=== PATIENT | male | born 1935 | race Caucasian/White ===

== ENCOUNTER 2017-05-03 21:24 | Inpatient (IN) | payer MEDICARE ==
[~2017-05-03] VITALS: Ht 180.3 cm; Wt 76.7 kg
[2017-05-03 21:45] VITALS: BP 100/62
--- NOTE | 2017-05-03 21:45 | NUR ---
GPS ADMISSION NOTE, RECEIVED PATIENT FROM [facility]. PATIENT ARRIVED ON THIS UNIT AT 2145 VIA STRETCHER WITH 2 EMT ESCORTS. PATIENT ADMITTED ON A 5150 HOLD FOR GD AND DTO. PER HOLD PATIENT PRESENTS WITH DEMENTIA WITH BEHAVIORAL DISTURBANCES. PATIENT HAS BEEN VERBALLY AND PHYSICALLY AGGRESSIVE AT ASSISTED LIVING FACILITY. PATIENT HAS BEEN COMBATIVE IN THE HOSPITAL REQUIRING IM PSYCHOTROPIC MEDICATIONS. FAMILY EXPRESSES SAFETY CONCERNS AND BELIEVE HE REQUIRES A PSYCHIATRIC ADMISSION. THE 5150 WAS REVIEWED AND THE DOCUMENTATION IN THE 5150 HOLD APPEARS TO REFLECT THE PRESENTATION OF THE PATIENT. UPON FACE TO FACE ASSESSMENT PATIENT IS CURRENTLY LYING IN BED AWAKE, HAS NO S/S OR COMPLAINTS OF PAIN. PATIENT IS DISPLAYING NO S/S OF APPARENT DISTRESS. PATIENT BREATHING IS UNLABORED WITH EQUAL RISE AND FALL OF THE CHEST. PATIENT IS ALERT AND ORIENTATED X 1 ON ROOM AIR. PATIENT ASSISTED WITH TURING AND REPOSITIONING Q2HR AND PRN FOR COMFORT AND CIRCULATION. PATIENT HAS NO NEEDS AT THIS TIME. PATIENT IS NOTED TO BEING WITHDRAWN, DEPRESSED, DISHEVELED, DISORGANIZED, CONFUSED, COOPERATIVE, AND NEEDS REDIRECTION. PATIENT DENIES SUICIDE IDEATIONS AND HOMICIDAL IDEATIONS AT THIS TIME BUT IS CONFUSED. PATIENT IS UNDER THE PSYCHIATRIC CARE OF DR. PEARL AND THE MEDICAL CARE OF DR ARAUJO. PATIENT BELONGINGS WERE INVENTORIED AND CHECKED FOR CONTRABAND. ALL CONTRABAND REMOVED AND STORED IN PATIENT HALLWAY LOCKER. PATIENT ADVANCED DIRECTIVES PREFERENCE, IMMUNIZATIONS QUESTIONER, NECESSARY PAPERWORK, AND SKIN ASSESSMENT COMPLETED. PATIENT ORIENTATED TO ROOM, FLOOR, AND STAFF WITH ALL QUESTIONS ANSWERED. PATIENT EDUCATED ON THE USE OF THE CALL PICKENS. PATIENT BED SIDE RAILS ARE UP X 2 FOR SAFETY. PATIENT BED IS LOCKED, LOW AND I WILL CONTINUE TO MONITOR THIS PATIENT Q 15 MIN WITH THE HELP OF STAFF TO MAINTAIN SAFETY.
[2017-05-03] MEDS ORDERED: MAGNESIUM HYDROXIDE 30 ML UDC PO PRN (22:00)
[2017-05-03] MEDS ORDERED: ACETAMINOPHEN 325 MG TABLET PO PRN (22:00)
[2017-05-03] MEDS ORDERED: MAG HYDROX/AL HYDROX/SIMETH 30 ML UDC PO PRN (22:00)
--- NOTE | 2017-05-03 22:00 | NUR ---
GPS RN NOTE, PATIENT IS VERY UNSTEADY ON HIS FEET CONSTANTLY TRYING TO CLIMB OUT BED WHILE SO CONFUSED IT IS HARD REORIENT THIS PATIENT. PATIENT ASSISTED TO GERIATRIC CHAIR FOR SAFETY. WILL ENDORSE TO AM SHIFT TO INFORM DR CASTANON TO HAVE 1 TO 1 SITTER FOR THIS PATIENT. WILL CONTINUE TO MONITOR THIS PATIENT.
[2017-05-03] MEDS ORDERED: BISA-79 PO (22:35)
[2017-05-03] MEDS ORDERED: SENN8.6T6 PO (22:35)
[2017-05-03] MEDS ORDERED: OLAN2.5T3 PO (22:35)
[2017-05-03] MEDS ORDERED: ASPI81TA2 PO (22:36)
[2017-05-03] MEDS ORDERED: CETI-102 PO (22:37)
[2017-05-03] MEDS ORDERED: DIVA125C5 PO (22:41)
[2017-05-03] MEDS ORDERED: DOCU-170 PO (22:41)
[2017-05-03] MEDS ORDERED: ESCI10TA PO (22:42)
[2017-05-03] MEDS ORDERED: FLUT16SP BNOSTRILS (22:43)
[2017-05-03] MEDS ORDERED: LATA2.5D7 EACHEYE (22:44)
[2017-05-03] MEDS ORDERED: LOPE2CAP PO (22:46)
[2017-05-03] MEDS ORDERED: MEMA10TA PO (22:47)
[2017-05-03] MEDS ORDERED: MULT-1119 PO (22:48)
[2017-05-03] MEDS ORDERED: NYST60PO TP (22:49)
[2017-05-03] MEDS ORDERED: OMEP20CA10 PO (22:50)
[2017-05-03] MEDS ORDERED: SIMV10TA6 PO (22:52)
[2017-05-03] MEDS ORDERED: TAMS0.4C34 PO (22:53)
[2017-05-03] MEDS ORDERED: TEMAZEPAM 7.5 MG CAPSULE ONE (23:03)
[2017-05-03] MEDS: TEMAZEPAM 7.5 MG CAPSULE PO PRN (23:08)
--- NOTE | 2017-05-03 23:08 | NUR ---
GPS RN NOTE, PATIENT HAS A COMPLAINT OF NOT BEING ABLE TO SLEEP AND WOULD LIKE A SLEEPING AID AT THIS TIME. PATIENT VITAL SIGNS ARE STABLE. GAVE RESTORIL 7.5MG PO HS ORDERED. WILL REASSESS FOR INSOMNIA AND I WILL CONTINUE TO MONITOR THIS PATIENT.
[2017-05-03] MEDS ORDERED: NYSTATIN TOP POWDER 15 GM BOTTLE TP PRN (23:30)
[2017-05-04] MEDS ORDERED: Z GUARD REMEDY 4 OZ OINT TP PRN (00:30)
[2017-05-04] MEDS ORDERED: LORAZEPAM 0.5 MG TABLET ONE (02:40)
[2017-05-04] MEDS: LORAZEPAM 0.5 MG TABLET PO PRN (02:44)
--- NOTE | 2017-05-04 02:44 | NUR ---
GPS RN NOTE, PATIENT HAS A COMPLAINT OF FEELING ANXIOUS AND WOULD LIKE MEDICATION TO HELP CALM HIM DOWN. PATIENT VITAL SIGNS ARE STABLE. GAVE ATIVAN 0.5MG PO Q6HR PRN ORDERED. WILL REASSESS FOR ANXIETY AND I WILL CONTINUE TO MONITOR THIS PATIENT.
[2017-05-04 07:12] LABS: BASOPHILS % (AUTO) 0.4 % (0.0-2.0); EOSINOPHILS # (AUTO) 0.2 /CMM (0.0-0.7); HEMATOCRIT 41 % (39-51); HEMOGLOBIN 14.1 g/dL (13.5-17.5); LYMPHOCYTES # (AUTO) 1.9 /CMM (0.8-4.8); LYMPHOCYTES % (AUTO) 21.6 % (20.0-44.0); MEAN CORPUSCULAR HEMOGLOBIN 33 PG (26.0-33.0); MEAN CORPUSCULAR HGB CONC 34 g/dl (31.0-36.0); MEAN CORPUSCULAR VOLUME 95 fL (80-96); MONOCYTES # (AUTO) 0.5 /CMM (0.1-1.30); MONOCYTES % (AUTO) 5.5 % (2.0-12.0); NEUTROPHILS # (AUTO) 6.3 /CMM (1.8-8.9); NEUTROPHILS % (AUTO) 70.5 % (43.0-81.0); PLATELET COUNT (AUTO) 164 /CMM (150-450); RDW COEFFICIENT OF VARIATION 13.4 (11.5-15.0); RED BLOOD CELL COUNT(AUTO) 4.32 MIL/uL (4.5-6.0); WHITE BLOOD COUNT (AUTO) 8.9 K/uL (4.3-11.0)
[2017-05-04 07:28] LABS: ALANINE AMINOTRANSFERASE 35 U/L (12-78); ALBUMIN 3.6 g/dL (3.4-5.0); ALKALINE PHOSPHATASE 131 U/L (46-116); ASPARTATE AMINOTRANSFERASE 23 U/L (15-37); BILIRUBIN,TOTAL 0.5 mg/dL (0.2-1.0); CALCIUM, SERUM 8.9 mg/dL (8.5-10.1); CARBON DIOXIDE 33 mmol/L (21-32); CHLORIDE 103 mmol/L (98-107); CREATININE 0.9 mg/dL (0.6-1.3); GLUCOSE 92 mg/dL (74-106); POTASSIUM 3.5 mmol/L (3.5-5.1); SODIUM SERUM 141 mmol/L (136-145); TOTAL PROTEIN, SERUM 7.2 g/dL (6.4-8.2); UREA NITROGEN, BLOOD 17 mg/dL (7-18)
[2017-05-04 07:34] LABS: CHOLESTEROL 154 mg/dL (<200); HDL CHOLESTEROL 55 mg/dL (40-60); LDL 73 mg/dL (0-99); TRIGLYCERIDES 80 mg/dL (30-150)
[2017-05-04 08:00] VITALS: BP 110/63
[2017-05-04] MEDS: ASPIRIN 81 MG TAB.CHEW PO SCH (08:36)
[2017-05-04] MEDS: DOCUSATE SODIUM 100 MG CAPSULE PO SCH ×2 (08:36→16:05)
[2017-05-04] MEDS: cetrizine 10 MG TABLET PO SCH (08:37)
[2017-05-04] MEDS: FLUTICASONE PROPIONATE 16 GM BOTTLE NS SCH (09:46)
[2017-05-04] MEDS ORDERED: OLANZAPINE 2.5 MG TABLET PO SCH (15:30)
--- NOTE | 2017-05-04 15:32 | NUR ---
Initial Discharge Plan: Patient resides at [facility] [address] [place] [address] ([phone]). company laundry worker spoke to patient's daughter Vilma Mak ([phone]) who stated that patient was in the memory care unit at [facility] and feels that he might need a shelter facility instead. company laundry worker spoke to Tito from the facility to confirm if patient can return upon discharge. However, Tito stated that Darlene the global compensation director who is in charge of making that decision was not available at the moment. company laundry worker left her contact information with Tito who stated that Siobhan would follow-up with older adult social work specialist. company laundry worker will help form a safe and proper discharge.
[2017-05-04] MEDS: ESCITALOPRAM OXALATE (10 MG) 10 MG TABLET PO SCH (15:38)
[2017-05-04] MEDS: MEMANTINE HCL 5 MG TABLET PO SCH (15:38)
[2017-05-04 16:03] VITALS: BP 118/72
[2017-05-04] MEDS: OLANZAPINE 2.5 MG TABLET PO SCH ×2 (16:08→21:19)
--- NOTE | 2017-05-04 16:37 | NUR ---
GPS RN: DNR/DNI STATUS CONFIRMED BY THIS WEB SEARCH EVALUATOR WITH PATIENT'S DAUGHTER, HEMAL CARTER AND WITNESSED BY THE CHARGE NURSE JAYSHREE, RELAYED TO WILTON ABDI NP, OK TO ORDER DNR/DNI CODE STATUS.
--- NOTE | 2017-05-04 17:15 | NUR ---
GPS RN: PATIENT IS RESTLESS AND COMBATIVE. UNABLE TO OBTAIN URINE AT THIS TIME, WILL ENDORSE TO THE UPCOMING SHIFT.
[2017-05-04] MEDS: LATANOPROST EYE DROP 0.005% 2.5 ML BOTTLE EACHEYE SCH (17:30)
[2017-05-04] MEDS: SIMVASTATIN 10 MG TABLET PO SCH (17:30)
[2017-05-04 19:56] VITALS: BP 129/106
[2017-05-04 20:00] VITALS: BP 129/106
[2017-05-04 20:05] VITALS: BP 119/87
[2017-05-04] MEDS: TAMSULOSIN 0.4 MG CAP.SR.24H PO SCH (21:18)
[2017-05-04] MEDS: TEMAZEPAM 7.5 MG CAPSULE PO PRN (21:18)
[2017-05-04] MEDS: SENNOSIDES 8.6 MG TABLET PO SCH (21:19)
[2017-05-05 08:00] VITALS: BP 111/67
[2017-05-05] MEDS: ESCITALOPRAM OXALATE (10 MG) 10 MG TABLET PO SCH (08:43)
[2017-05-05] MEDS: ASPIRIN 81 MG TAB.CHEW PO SCH (08:43)
[2017-05-05] MEDS: MEMANTINE HCL 5 MG TABLET PO SCH (08:43)
[2017-05-05] MEDS: DOCUSATE SODIUM 100 MG CAPSULE PO SCH ×2 (08:43→17:47)
[2017-05-05] MEDS: OLANZAPINE 2.5 MG TABLET PO SCH ×3 (08:43→17:48)
[2017-05-05] MEDS: cetrizine 10 MG TABLET PO SCH (08:43)
[2017-05-05] MEDS: FLUTICASONE PROPIONATE 16 GM BOTTLE NS SCH (08:47)
--- NOTE | 2017-05-05 15:21 | NUR ---
GPS RN: PATIENT IS EASILY AGITATED, VERBALLY ABUSIVE, COMBATIVE AND AGGRESSIVE, FLAILING ARMS. APPROACHED CALMLY AND ENCOURAGED TO VERBALIZE FEELINGS, PROVIDED WITH SAFE AND CALM ENVIRONMENT. ALL NEEDS ATTENDED, CONTINUE TO MONITOR WITH 1:1 SITTER FOR SAFETY.
[2017-05-05] MEDS: SIMVASTATIN 10 MG TABLET PO SCH (17:47)
[2017-05-05] MEDS: LATANOPROST EYE DROP 0.005% 2.5 ML BOTTLE EACHEYE SCH (17:55)
--- NOTE | 2017-05-05 19:00 | NUR ---
GPS RN: PATIENT IS IN BED, NOT IN DISTRESS, RESTING QUIETLY, 1:1 SITTER AT BEDSIDE. UNABLE TO OBTAIN URINE SAMPLE DUE TO AGITATION DURING AM SHIFT. URINE COLLECTION ENDORSED TO THE INTEGRITY ASSESSOR NURSE.
[2017-05-05 20:21] VITALS: BP 111/69
[2017-05-05] MEDS: TAMSULOSIN 0.4 MG CAP.SR.24H PO SCH (21:29)
[2017-05-05] MEDS: TEMAZEPAM 7.5 MG CAPSULE PO PRN (21:30)
[2017-05-05] MEDS: SENNOSIDES 8.6 MG TABLET PO SCH (21:30)
[2017-05-06 08:16] VITALS: BP 131/73
[2017-05-06] MEDS: MEMANTINE HCL 5 MG TABLET PO SCH (08:44)
[2017-05-06] MEDS: DOCUSATE SODIUM 100 MG CAPSULE PO SCH ×2 (08:44→16:22)
[2017-05-06] MEDS: ESCITALOPRAM OXALATE (10 MG) 10 MG TABLET PO SCH (08:44)
[2017-05-06] MEDS: ASPIRIN 81 MG TAB.CHEW PO SCH (08:44)
[2017-05-06] MEDS: OLANZAPINE 2.5 MG TABLET PO SCH ×3 (08:45→16:22)
[2017-05-06] MEDS: cetrizine 10 MG TABLET PO SCH (08:45)
[2017-05-06] MEDS: FLUTICASONE PROPIONATE 16 GM BOTTLE NS SCH (08:47)
--- NOTE | 2017-05-06 10:00 | NUR ---
[id number]: PT IS IRRITABLE, UNPREDICTABLE, ANXIOUS, RESTLESS, UNCOOPERATIVE, YELLING, SAYING PROFANITIES. ESCORTED PT BACK TO ROOM, DECREASE STIMULI, PROVIDED A QUIET AND CALM ENVIRONMENT. OFFERED PT TO TAKE A ATIVAN AND PT REFUSED. WILL CONTINUE TO MONITOR FOR SAFETY AND BEHAVIOR EVERY 15 MINUTES.
[2017-05-06 13:16] LABS: APPEARANCE,URINE SL CLOUDY (CLEAR); BILIRUBIN,URINE NEGATIVE (NEGATIVE); BLOOD, URINE 3+ Ery/uL (NEGATIVE); COLOR,URINE YELLOW (YELLOW); KETONES,URINE NEGATIVE (NEGATIVE); LEUKOCYTE ESTERASE ,URINE NEGATIVE (NEGATIVE); NITRITE, URINE NEGATIVE (NEGATIVE); PH,URINE 6.5 (5.0-8.0); PROTEIN,URINE NEGATIVE (NEGATIVE); UGLUCOSE NEGATIVE (NEGATIVE); UROBILINOGEN,URINE 0.2 EU/dL (0.2)
[2017-05-06 14:21] LABS: BACTERIA,URINE Rare /HPF (None Seen); RBC,URINE 51-80 /HPF (0-2); SQUAMOUS EPITHELIAL CELL,UR Few /HPF (None Seen)
--- NOTE | 2017-05-06 14:34 | NUR ---
[id number]: NOTIFIED EXTERNAL AUDITOR СЕРГЕЙ CUELLAR ABOUT URINALYSIS RESULTS ON 05/06/17: URINE RBC= 51-80, AND URINE WBC=3-5. NO NEW ORDERS GIVEN AT THIS TIME
[2017-05-06 16:00] VITALS: BP 110/58
[2017-05-06] MEDS: SIMVASTATIN 10 MG TABLET PO SCH (17:41)
[2017-05-06] MEDS: LATANOPROST EYE DROP 0.005% 2.5 ML BOTTLE EACHEYE SCH (17:42)
[2017-05-06 19:47] VITALS: BP 130/69
[2017-05-06] MEDS: TEMAZEPAM 7.5 MG CAPSULE PO PRN (21:35)
[2017-05-06] MEDS: SENNOSIDES 8.6 MG TABLET PO SCH (21:35)
[2017-05-06] MEDS: TAMSULOSIN 0.4 MG CAP.SR.24H PO SCH (21:35)
[2017-05-07 08:00] VITALS: BP 110/69
[2017-05-07] MEDS: cetrizine 10 MG TABLET PO SCH (08:12)
[2017-05-07] MEDS: ASPIRIN 81 MG TAB.CHEW PO SCH (08:12)
[2017-05-07] MEDS: DOCUSATE SODIUM 100 MG CAPSULE PO SCH ×2 (08:12→16:08)
[2017-05-07] MEDS: MEMANTINE HCL 5 MG TABLET PO SCH (08:12)
[2017-05-07] MEDS: ESCITALOPRAM OXALATE (10 MG) 10 MG TABLET PO SCH (08:12)
[2017-05-07] MEDS: OLANZAPINE 2.5 MG TABLET PO SCH ×2 (08:14→12:21)
[2017-05-07] MEDS: FLUTICASONE PROPIONATE 16 GM BOTTLE NS SCH (08:15)
--- NOTE | 2017-05-07 10:00 | NUR ---
[id number]: PT IS OBSERVED TO BE IRRITABLE, ANXIOUS, RESTLESS, UNCOOPERATIVE WITH CARE. DISCUSS WITH PT THAT PT IS GOING TO BE CHANGED AND THE IMPORTANCE OF PERSONAL HYGIENE. PT YET IS IRRITABLE, RESISTANT TO CARE, USING PROFANITIES WHEN TALKING TO STAFF. WILL CONTINUE TO MONITOR FOR SAFETY AND BEHAVIOR EVERY 15 MINUTES.
[2017-05-07 16:00] VITALS: BP 128/66
[2017-05-07] MEDS: OLANZAPINE 5 MG TABLET PO SCH (16:08)
[2017-05-07] MEDS: LATANOPROST EYE DROP 0.005% 2.5 ML BOTTLE EACHEYE SCH (17:23)
[2017-05-07] MEDS: SIMVASTATIN 10 MG TABLET PO SCH (17:23)
[2017-05-07 19:38] VITALS: BP 94/57
[2017-05-07] MEDS: TAMSULOSIN 0.4 MG CAP.SR.24H PO SCH (21:23)
[2017-05-07] MEDS: SENNOSIDES 8.6 MG TABLET PO SCH (21:23)
[2017-05-07] MEDS: TEMAZEPAM 7.5 MG CAPSULE PO PRN (21:24)
[2017-05-08 08:00] VITALS: BP 117/77
[2017-05-08] MEDS: ESCITALOPRAM OXALATE (10 MG) 10 MG TABLET PO SCH (08:21)
[2017-05-08] MEDS: MEMANTINE HCL 5 MG TABLET PO SCH (08:21)
[2017-05-08] MEDS: OLANZAPINE 5 MG TABLET PO SCH ×3 (08:21→17:00)
[2017-05-08] MEDS: ASPIRIN 81 MG TAB.CHEW PO SCH (08:21)
[2017-05-08] MEDS: cetrizine 10 MG TABLET PO SCH (08:22)
[2017-05-08] MEDS: FLUTICASONE PROPIONATE 16 GM BOTTLE NS SCH (08:26)
[2017-05-08] MEDS: DOCUSATE SODIUM 100 MG CAPSULE PO SCH ×2 (08:28→16:25)
[2017-05-08] MEDS: BENZTROPINE MESYLATE (1 MG) 1 MG TABLET PO SCH ×2 (10:08→16:25)
--- NOTE | 2017-05-08 10:08 | NUR ---
[id number]: NOTIFIED DR. QUIROGA ABOUT PT HAVING STIFF NECK, UNABLE TO MOVE THE NECK. DR. CLAY ORDERED COGENTIN 1 MG PO BID AND FIRST ORDER TO BE GIVEN NOW. WILL CONTINUE TO MONITOR PT. FOR SIGNS AND SYMPTOMS OF EPS.
--- NOTE | 2017-05-08 11:56 | NUR ---
propeller layout worker faxed initial review packet to [facility] (phone: [phone]/ ) [address] [facility] [address]. Per Keyon, from the facility patient has been accepted. propeller layout worker will follow-up.
--- NOTE | 2017-05-08 12:00 | NUR ---
[id number]: FOUND 3 SKIN TEARS ON LOWER LEFT LEG WITH MEASUREMENTS OF 1.5CM X 1CM, 1.7CM X 0.6CM, 0.5CM X 1.5CM. PT HAD BEEN ADMITTED WITH DRY SCALY, OLD BRUISES ON LOWER LEG. PICTURES TAKEN. CLEANSED WITH NORMAL SALINE, PAT DRY AND COVERED WITH DRY DRESSING. WOUND CONSULT ORDERED. NOTIFIED DAUGHTER HEMAL BECKWITH. NO SIGNS OR SYMPTOMS OF INFECTION NOTED. NO PRESENT OF FOUL ODOR NOTED. PT STATED, "I DON'T KNOW HOW I GOT IT." WILL CONTINUE TO MONITOR FOR SAFETY AND BEHAVIOR.
[2017-05-08] MEDS ORDERED: BENZTROPINE MESYLATE (2MG/2ML) 2 MG/2 ML AMPUL IM ONE (13:46)
[2017-05-08] MEDS ORDERED: BENZTROPINE MESYLATE (2MG/2ML) 2 MG/2 ML AMPUL IM SCH (14:00)
--- NOTE | 2017-05-08 15:46 | NUR ---
[id number]: NOTIFIED DR. 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
[2017-05-08 16:00] VITALS: BP 126/85
[2017-05-08] MEDS: SIMVASTATIN 10 MG TABLET PO SCH (17:00)
[2017-05-08] MEDS: LATANOPROST EYE DROP 0.005% 2.5 ML BOTTLE EACHEYE SCH (17:00)
--- NOTE | 2017-05-08 17:35 | NUR ---
[id number]: HOLD ZYPREXA 5 MG DUE TO POSSIBLE TARDIVE DYSKINESIA. WILL CONTINUE TO MONITOR FOR SIGNS AND SYMPTOMS OF TARDIVE DYSKINESIA. DR. CLAY WANTS FOR THE MORNING NURSE TO HOLD MORNING ZYPREXA 5 MG FOR TOMORROW ON 05/09/17 AND TO MONITOR FOR SIGNS AND SYMPTOMS OF TARDIVE DYSKINESIA.
[2017-05-08 21:09] VITALS: BP 133/71
[2017-05-08] MEDS: SENNOSIDES 8.6 MG TABLET PO SCH (22:00)
[2017-05-08] MEDS: TAMSULOSIN 0.4 MG CAP.SR.24H PO SCH (22:00)
--- NOTE | 2017-05-09 07:30 | NUR ---
EXAMINER RATING CLERK-NOTES RECEIVED PATIENT IN THE DAY ROOM UP IN THE GERICHAIR WITH THE TABLE AWAKE,ALERT ORIENTED X1. NO ACUTE DISTRESS NOTED. PATIENT ABLE TO MOVE ALL EXTREMITIES WITH NO DISCOMFORT.NOTED SKIN TEAR ON HIS LEFT HAND,CLEANSE WITH NS PAT DRY AND COVERED WITH TRANSPARENT DRESSING. NOTED WITH EPISODE OF PUSHING HIS TABLE CHAIR AND GETTING OUT THE CHAIR UNASSISTED.REDIRECTED PATIENT. ALL NEEDS ATTENDED AND ANTICIPATED.WILL CONT. MONITORING FOR SAFETY AND BEHAVIOR.
[2017-05-09 08:03] VITALS: BP 122/68
[2017-05-09] MEDS: OLANZAPINE 5 MG TABLET PO SCH ×2 (08:21→16:21)
[2017-05-09] MEDS: DOCUSATE SODIUM 100 MG CAPSULE PO SCH ×2 (08:21→16:21)
[2017-05-09] MEDS: BENZTROPINE MESYLATE (1 MG) 1 MG TABLET PO SCH ×2 (08:21→16:21)
[2017-05-09] MEDS: ESCITALOPRAM OXALATE (10 MG) 10 MG TABLET PO SCH (08:21)
[2017-05-09] MEDS: cetrizine 10 MG TABLET PO SCH (08:21)
[2017-05-09] MEDS: ASPIRIN 81 MG TAB.CHEW PO SCH (08:21)
[2017-05-09] MEDS: MEMANTINE HCL 5 MG TABLET PO SCH (08:21)
--- NOTE | 2017-05-09 09:36 | NUR ---
WOUND CARE CONSULT: PT PRESENTS WITH LEFT HAND SKIN TEAR AND LEFT LOWER LEG SKIN TEARS. PT ALSO NOTED TO HAVE SCARRING TO SACRAL AREA WITH THICKENED SKIN. PT IS INCONTINENT. RECOMMENDATIONS MADE FOR SKIN PROTECTION AND WOUND CARE. DISCUSSED WITH NURSING STAFF. WILL SEE PRN. ROSA IN AGREEMENT WITH PLAN OF CARE. Addendum: 05/09/17 at 4073 by TONY MCNALLY WNDNU Amended: Links added.
[2017-05-09] MEDS: BACITRACIN/POLYMYXIN B 15 GM TUBE TP SCH ×2 (11:14→16:55)
[2017-05-09] MEDS: FLUTICASONE PROPIONATE 16 GM BOTTLE NS SCH (11:15)
--- NOTE | 2017-05-09 15:09 | NUR ---
supervisor shed workers spoke to patient's daughter Vilma Mak ([phone]) and notified her that patient has been accepted to [facility] (phone: [phone]/ ) [address] [facility] [address]. Per Hilda Mak, she was going to try and visit the facility today. supervisor shed workers informed Hilda Mak that if there is other facilities she had in mind to please inform clinical social work aide as soon as possible so that the clinical social work aide can follow-up.
[2017-05-09 16:00] VITALS: BP 125/77
[2017-05-09] MEDS: LORAZEPAM 0.5 MG TABLET PO PRN (16:54)
--- NOTE | 2017-05-09 16:56 | NUR ---
REBEAMER-NOTES NOTED PATIENT WITH AGGRESSIVE BEHAVIOR,HITTING AND KICKING STAFF DURING DIAPER CHANGE. REFUSING TO WEAR GOWN.SCREAMING AND YELLING USING FOUL LANGUAGES. REDIRECTED PATIENT. ATIVAN 0.5MG P.O GIVEN PRN ORDER. WILL CONT. 1:1 MONITORING FOR SAFETY AND BEHAVIOR.
[2017-05-09] MEDS: SIMVASTATIN 10 MG TABLET PO SCH (17:54)
[2017-05-09] MEDS: LATANOPROST EYE DROP 0.005% 2.5 ML BOTTLE EACHEYE SCH (17:54)
--- NOTE | 2017-05-09 19:30 | NUR ---
RECREATION THERAPY AIDE-NOTES PATIENT AWAKE,ALERT LAYING IN HIS BED INTERACTING WITH HIS DAUGHTER. ALL NEEDS ATTENDED AND ANTICIPATED. ENDORSE TO THE NIGHT NURSE FOR CONTINUITY OF CARE.
[2017-05-09 20:00] VITALS: BP 110/60
[2017-05-09] MEDS: TEMAZEPAM 7.5 MG CAPSULE PO PRN (21:13)
[2017-05-09] MEDS: SENNOSIDES 8.6 MG TABLET PO SCH (21:13)
[2017-05-09] MEDS: TAMSULOSIN 0.4 MG CAP.SR.24H PO SCH (21:13)
--- NOTE | 2017-05-10 07:45 | NUR ---
GPS RN: RECEIVED PATIENT IN BED, AWAKE, RESTLESS, EASILY AGITATED. NOT IN PHYSICAL DISTRESS, VS STABLE. NOTED WITH SKIN TEARS OVER THE LEFT MARTELL AREA, NO DRESSING PRESENT, NO DISCHARGE, NO ODOR, NO REDNESS OF SURROUNDING SKIN NOTED. UNABLE TO TAKE PICTURES OR APPLY DRESSING AT THIS TIME DUE TO RESTLESSNESS AND AGITATION. WILL CONTINUE TO MONITOR THE PATIENT.
[2017-05-10 08:00] VITALS: BP 130/82
[2017-05-10] MEDS: ESCITALOPRAM OXALATE (10 MG) 10 MG TABLET PO SCH (08:52)
[2017-05-10] MEDS: BENZTROPINE MESYLATE (1 MG) 1 MG TABLET PO SCH ×2 (08:52→17:20)
[2017-05-10] MEDS: MEMANTINE HCL 5 MG TABLET PO SCH (08:52)
[2017-05-10] MEDS: ASPIRIN 81 MG TAB.CHEW PO SCH (08:52)
[2017-05-10] MEDS: DOCUSATE SODIUM 100 MG CAPSULE PO SCH ×2 (08:52→17:20)
[2017-05-10] MEDS: cetrizine 10 MG TABLET PO SCH (08:52)
[2017-05-10] MEDS: OLANZAPINE 5 MG TABLET PO SCH ×2 (08:52→17:20)
[2017-05-10] MEDS: BACITRACIN/POLYMYXIN B 15 GM TUBE TP SCH ×2 (08:58→17:26)
[2017-05-10] MEDS: FLUTICASONE PROPIONATE 16 GM BOTTLE NS SCH (08:58)
--- NOTE | 2017-05-10 15:00 | NUR ---
family service caseworker spoke to patient's daughter Vilma Mak ([phone]) regarding the discharge plan and she notified me that she was not agreeable with [facility] (phone: [phone]/ ) [address] [facility] [address]. Patient's daughter requested other locked longterm facilities and also stated that she wants [facility] [address] [place] [address] ([phone]) to come reassess the patient when he is stable. family service caseworker will follow-up.
[2017-05-10 16:00] VITALS: BP 128/76
[2017-05-10] MEDS: SIMVASTATIN 10 MG TABLET PO SCH (17:20)
[2017-05-10] MEDS: LATANOPROST EYE DROP 0.005% 2.5 ML BOTTLE EACHEYE SCH (17:26)
--- NOTE | 2017-05-10 18:45 | NUR ---
GPS RN: PATIENT IS UP IN LEANA CHAIR, CALM AND QUIET AT THIS TIME, NO S/S OF TARDIVE DYSKINESIA NOTED IN AM SHIFT. NO S/S OF ACUTE DISTRESS, VS STABLE. WOUND CARE ON THE LEFT LOWER EXTREMITY PROVIDED ORDERED, DRESSING IS INTACT AT THIS TIME. WILL CONTINUE TO MONITOR AND ENDORSE TO THE UPCOMING SHIFT.
[2017-05-10 19:57] VITALS: BP 151/75
[2017-05-10 20:00] VITALS: BP 151/75
[2017-05-10] MEDS: TAMSULOSIN 0.4 MG CAP.SR.24H PO SCH (21:20)
[2017-05-10] MEDS: TEMAZEPAM 7.5 MG CAPSULE PO PRN (21:20)
[2017-05-10] MEDS: SENNOSIDES 8.6 MG TABLET PO SCH (21:21)
--- NOTE | 2017-05-11 02:10 | NUR ---
GPS/SHINGLE WEAVER NOTES: PT. HAD VOMITED X1. MODERATE AMOUNT. VITALS SIGNS TAKEN. BP 117/75, HR 109, RESPIRATIONS 19, O2 SAT NOTED AT 95%...NO S/S OF PAIN OR DISCOMFORT. PT. CLEANED UP AND WENT BACK TO SLEEP. WILL CONTINUE TO MONITOR.
--- NOTE | 2017-05-11 04:20 | NUR ---
GPS/VETERINARIAN HELPER NOTES: PT. VOMITED AGAIN. CHARGE NURSE MADE AWARE. CALLED AND LEFT MESSAGE TO MARGARITA CUELLAR NP. WAITING FOR CALL BACK.
--- NOTE | 2017-05-11 04:22 | NUR ---
GPS/CONTEMPORARY OR MODERN DANCER NOTES: СЕРГЕЙ CUELLAR MATERIALS AND CORROSION ENGINEER RETURNED CALL. INFORMED OF ASHLYN, PT. VOMITED MODERATE AMOUNT COFFEE GROUND X2. MATERIALS AND CORROSION ENGINEER СЕРГЕЙ CUELLAR ORDERED ZOFRAN 4MG SUBLINGUAL Q6HR PRN AND CBC, BMP FOR AM LABS. WILL CONTINUE TO MONITOR.
[2017-05-11] MEDS ORDERED: ONDANSETRON 4 MG TAB.RAPDIS ONE (04:27)
[2017-05-11] MEDS ORDERED: ONDANSETRON HCL 4 MG/5 ML SOLUTION PO PRN (04:30)
[2017-05-11 04:50] LABS: BASOPHILS % (AUTO) 0.2 % (0.0-2.0); HEMATOCRIT 44 % (39-51); LYMPHOCYTES # (AUTO) 0.7 /CMM (0.8-4.8); MEAN CORPUSCULAR HEMOGLOBIN 32 PG (26.0-33.0); MEAN CORPUSCULAR HGB CONC 34 g/dl (31.0-36.0); MEAN CORPUSCULAR VOLUME 96 fL (80-96); MONOCYTES # (AUTO) 0.5 /CMM (0.1-1.30); MONOCYTES % (AUTO) 3.3 % (2.0-12.0); NEUTROPHILS # (AUTO) 13.2 /CMM (1.8-8.9); NEUTROPHILS % (AUTO) 91.5 % (43.0-81.0); PLATELET COUNT (AUTO) 208 /CMM (150-450); RDW COEFFICIENT OF VARIATION 13.7 (11.5-15.0); RED BLOOD CELL COUNT(AUTO) 4.63 MIL/uL (4.5-6.0); WHITE BLOOD COUNT (AUTO) 14.4 K/uL (4.3-11.0)
[2017-05-11 04:55] LABS: CALCIUM, SERUM 8.9 mg/dL (8.5-10.1); CARBON DIOXIDE 30 mmol/L (21-32); CHLORIDE 102 mmol/L (98-107); CREATININE 0.8 mg/dL (0.6-1.3); GLUCOSE 150 mg/dL (74-106); POTASSIUM 3.9 mmol/L (3.5-5.1); SODIUM SERUM 140 mmol/L (136-145); UREA NITROGEN, BLOOD 24 mg/dL (7-18)
[2017-05-11] MEDS ORDERED: ONDANSETRON 4 MG TAB.RAPDIS SL PRN (05:00)
[2017-05-11 05:24] LABS: BAND % (MANUAL) 1 % (0.0-5.0); LYMPHOCYTES % (MANUAL) 4 % (16-48); MONOCYTES % (MANUAL) 7 % (0-11.0); NEUTROPHILS % (MANUAL) 87 (42-76); REACTIVE LYMPHOCYTES 1 % (0-0)
[2017-05-11 08:21] VITALS: BP 126/68
[2017-05-11] MEDS: ESCITALOPRAM OXALATE (10 MG) 10 MG TABLET PO SCH (08:58)
[2017-05-11] MEDS: ASPIRIN 81 MG TAB.CHEW PO SCH (08:59)
[2017-05-11] MEDS: cetrizine 10 MG TABLET PO SCH (08:59)
[2017-05-11] MEDS: BENZTROPINE MESYLATE (1 MG) 1 MG TABLET PO SCH (08:59)
[2017-05-11] MEDS: DOCUSATE SODIUM 100 MG CAPSULE PO SCH (08:59)
[2017-05-11] MEDS: OLANZAPINE 5 MG TABLET PO SCH (08:59)
[2017-05-11] MEDS: MEMANTINE HCL 5 MG TABLET PO SCH (08:59)
[2017-05-11] MEDS: BACITRACIN/POLYMYXIN B 15 GM TUBE TP SCH (09:07)
[2017-05-11] MEDS: FLUTICASONE PROPIONATE 16 GM BOTTLE NS SCH (09:14)
--- NOTE | 2017-05-11 14:22 | NUR ---
GPS RN: PATIENT HAD AN EPISODE OF PROJECTILE VOMITING, VS: 165/85, 02 SAT 96%, RR 19, HR 86, T 98.6, BS 123MG/DL. PATIENT IS CONFUSED AND RESTLESS. DR. PRINCE NOTIFIED WITH A NEW ORDER, CT SCAN OF THE HEAD, STAT. NOTED AND CARRIED OUT.
--- NOTE | 2017-05-11 15:16 | NUR ---
hired worker attempted to contact patient's daughter Vilma Mak ([phone]) regarding the discharge plan however, she was unavailable. hired worker left a message with her contact information. hired worker will follow-up.
--- NOTE | 2017-05-11 15:17 | NUR ---
Patient has been accepted to [facility] (phone: [phone]/ ) [address] [facility] [address]. and can be discharged there anytime if daughter agrees.
--- NOTE | 2017-05-11 15:28 | NUR ---
community service worker spoke to patient's daughter Vilma Mak ([phone]) regarding the discharge. Hilda Waldron stated that she would like [facility] [address] [place] [address] ([phone]) to come reassess the patient. However, social work job titles informed Hilda Waldron that she would try to have [facility] come reassess the patient but if they are unable to do so by Sunday than he would have to be discharged to [facility] (phone: [phone]/ ) [address] [facility] [address]. Patient's daughter Vanita was agreeable with the discharge plan.
--- NOTE | 2017-05-11 15:45 | NUR ---
tankroom worker spoke to Darlene from [facility] [address] [place] [address] ([phone]) who stated that the nurse cannot come to assess the patient until Sunday. tankroom worker will follow-up.
--- NOTE | 2017-05-11 16:09 | NUR ---
conditioning room worker spoke to Darlene from [facility] [address] [place] [address] ([phone]) who stated that Paulo would come to assess the patient Sunday05/14/17 at 11:00am. conditioning room worker will follow-up.
--- NOTE | 2017-05-11 16:57 | NUR ---
GPS RN: PATIENT DISCHARGED TO THE MEDICAL FLOOR PER DR. PRINCE'S ORDER. DX: ALTERED LEVEL OF CONSCIOUSNESS, PROJECTILE VOMITING. ALL BELONGINGS RETURNED TO THE PATIENT. MED RECON DONE. THE ORIGINAL LEGAL PAPERWORK ( AND HOLD FORMS) ATTACHED WITH THE DISCHARGE PAPERWORK AND ENDORSED TO THE RECEIVING NURSE JODIE ON THE MED-SURG FLOOR. PATIENT IS NOT IN ACUTE DISTRESS AT THIS TIME.VS:165/71 T98.3; RR20, HR100, O2 SAT 98%. Addendum: 05/11/17 at 1730 by ERAN TESFAYE RN PICTURES OF THE SKIN PROBLEMS TAKEN AND DOCUMENTED IN THE CHART EXCEPT FOR THE SACRAL AREA, PATIENT BECAME AGITATED, RESTLESS, AND UNCOOPERATIVE, UNABLE TO COMPLETE PHOTOS.
== END 2017-05-11 16:50 | DRG 885 ==
LOC: GPS 21:24
PROVIDERS: ADMIT Psychiatry & Neurology Psychiatry; ATTEND Nurse Practitioner Acute Care
DX: F33.3 Major depressive disorder, recurrent, severe with psychotic symptoms (principal); F03.91 Unspecified dementia, unspecified severity, with behavioral disturbance; F29 Unspecified psychosis not due to a substance or known physiological condition; D72.829 Elevated white blood cell count, unspecified; G89.29 Other chronic pain; H40.9 Unspecified glaucoma; H91.10 Presbycusis, unspecified ear; I10 Essential (primary) hypertension; K21.9 Gastro-esophageal reflux disease without esophagitis; K58.9 Irritable bowel syndrome, unspecified; M19.90 Unspecified osteoarthritis, unspecified site; M48.06 Spinal stenosis, lumbar region; N40.0 Benign prostatic hyperplasia without lower urinary tract symptoms; Z86.73 Personal history of transient ischemic attack (TIA), and cerebral infarction without residual deficits; K57.90 Diverticulosis of intestine, part unspecified, without perforation or abscess without bleeding
CPT/HCPCS: 36415; 70450-TC; 71010-TC; 73130-TC; 80048-TC; 80053-TC; 80061-TC; 81000-TC; 82962-TC; 85025-TC; 87081-TC; 87086-TC; 97001-TC; 97530-TC; A6402; J0515; Q0162; Z7610

== ENCOUNTER 2017-05-11 18:08 | Inpatient (IN) | payer MEDICARE ==
[~2017-05-11] VITALS: Ht 180.3 cm; Wt 76.7 kg
[~2017-05-11 18:08] MED LIST: ASPI81TA2 PO; BISA-79 PO; CETI-102 PO; DIVA125C5 PO; DOCU-170 PO; ESCI10TA PO; FLUT16SP BNOSTRILS; LATA2.5D7 EACHEYE; LOPE2CAP PO; MEMA10TA PO; MULT-1119 PO; NYST60PO TP; OLAN2.5T3 PO; OMEP20CA10 PO; SENN8.6T6 PO; SIMV10TA6 PO; TAMS0.4C34 PO
--- NOTE | 2017-05-11 19:40 | NUR ---
FOOD CHECKER INITIAL NOTES PT WAS ADMITTED TO THE FLOOR AT 1730 PRIOR TO MY SHIFT, NO ORDERS AND ADMIN DOCUMENTING HAD NOT BEEN INITIATED. CONTACTED [facility] TO GET ORDERS, PATEL CUELLAR WILL BE THE ADMITTING. PT IS SLEEPING WITH ABDULAZIZ/PSYCH LINE UP EXAMINER, 1:1 SITTER, AT BEDSIDE, ADVISED THAT THE PT GETS COMBATIVE AND DIFFICULT. PT APPEARS TO BE IN NO APPARENT DISTRESS. NO IV ACCESS. EPISODE OF VOMITING, ONCE ON THE FLOOR PRIOR TO MY SHIFT. WILL CARRY OUT ALL ADMITTING ORDERS. WILL CONTINUE TO MONITOR PT
[2017-05-11 20:00] VITALS: BP 128/28
[2017-05-11] MEDS ORDERED: ONDANSETRON HCL/PF 4 MG/2 ML VIAL IVP PRN (20:30)
[2017-05-11] MEDS ORDERED: ZOLPIDEM TARTRATE 5 MG TABLET PO PRN (20:30)
[2017-05-11] MEDS ORDERED: MAG HYDROX/AL HYDROX/SIMETH 30 ML UDC PO PRN (20:30)
[2017-05-11] MEDS ORDERED: ACETAMINOPHEN 650 MG/SUPP.RECT RC PRN (20:30)
[2017-05-11] MEDS ORDERED: MAGNESIUM HYDROXIDE 30 ML UDC PO PRN (20:30)
[2017-05-11] MEDS ORDERED: Z GUARD REMEDY 2 OZ OINT TP PRN (20:30)
--- NOTE | 2017-05-11 21:00 | NUR ---
UA STRAIGHT CATH WAS USED TO COLLECT URINE SPECIMEN. 500 CC OF URINE WAS REMOVED, URINE SPECIMEN WAS PICKED UP BY LAB
[2017-05-11] MEDS ORDERED: IV SET PRIMARY PUMP SET 1 EA INFUS.SET MC ONE (21:46)
[2017-05-11 22:00] VITALS: BP 128/28
[2017-05-11] MEDS: ENOXAPARIN SODIUM 40 MG/0.4 ML DISP.SYRIN SQ SCH (22:43)
[2017-05-11] MEDS: FAMOTIDINE/PF INJ 20 MG/2 ML VIAL IV SCH (22:43)
[2017-05-11 23:56] LABS: APPEARANCE,URINE CLEAR (CLEAR); BILIRUBIN,URINE NEGATIVE (NEGATIVE); BLOOD, URINE NEGATIVE Ery/uL (NEGATIVE); COLOR,URINE YELLOW (YELLOW); KETONES,URINE TRACE (NEGATIVE); LEUKOCYTE ESTERASE ,URINE NEGATIVE (NEGATIVE); NITRITE, URINE NEGATIVE (NEGATIVE); PH,URINE 6.5 (5.0-8.0); PROTEIN,URINE TRACE mg/dl (NEGATIVE); UGLUCOSE NEGATIVE (NEGATIVE)
[2017-05-12] VITALS (7 sets, daily range): BP systolic 105–136; BP diastolic 60–75
[2017-05-12 00:11] LABS: BACTERIA,URINE None seen /HPF (None Seen); RBC,URINE 0-2 /HPF (0-2); SQUAMOUS EPITHELIAL CELL,UR None Seen /HPF (None Seen); WBC,URINE 0-2 /HPF (0-3)
[2017-05-12 00:12] LABS: MUCUS,URINE Rare /LPF (None Seen)
[2017-05-12 06:28] LABS: BASOPHILS % (AUTO) 0.1 % (0.0-2.0); EOSINOPHILS % (AUTO) 0.1 % (0.0-6.0); HEMATOCRIT 40 % (39-51); HEMOGLOBIN 13.7 g/dL (13.5-17.5); LYMPHOCYTES # (AUTO) 1.2 /CMM (0.8-4.8); LYMPHOCYTES % (AUTO) 9.3 % (20.0-44.0); MEAN CORPUSCULAR HEMOGLOBIN 33 PG (26.0-33.0); MEAN CORPUSCULAR HGB CONC 34 g/dl (31.0-36.0); MEAN CORPUSCULAR VOLUME 96 fL (80-96); MONOCYTES # (AUTO) 0.9 /CMM (0.1-1.30); MONOCYTES % (AUTO) 7.1 % (2.0-12.0); NEUTROPHILS # (AUTO) 10.9 /CMM (1.8-8.9); NEUTROPHILS % (AUTO) 83.4 % (43.0-81.0); PLATELET COUNT (AUTO) 191 /CMM (150-450); RDW COEFFICIENT OF VARIATION 13.8 (11.5-15.0); RED BLOOD CELL COUNT(AUTO) 4.22 MIL/uL (4.5-6.0); WHITE BLOOD COUNT (AUTO) 13.1 K/uL (4.3-11.0)
--- NOTE | 2017-05-12 06:53 | NUR ---
MS RN CLOSING NOTES PT IS IN BED SLEEPING A/O X1. NO SIGNS OF DISTRESS OR SOB. IV ACCESS WAS PLACED ON LEFT FOREARM WITH NS @100 ML/HR. PICTURES OF WOUNDS WERE TAKEN AND PLACED IN CHART. DRESSING ON MARTELL WOUNDS WAS CHANGED. ADMISSION PACKET WAS COMPLETED . NPO STATUS IS STILL ON GOING PENDING MD GIORDANO. WILL ENDORSE TO DAYSHIFT.
[2017-05-12 06:54] LABS: CALCIUM, SERUM 8.1 mg/dL (8.5-10.1); CARBON DIOXIDE 33 mmol/L (21-32); CHLORIDE 106 mmol/L (98-107); CREATININE 0.8 mg/dL (0.6-1.3); GLUCOSE 100 mg/dL (74-106); MAGNESIUM 2.2 mg/dL (1.8-2.4); PHOSPHORUS 3.2 mg/dL (2.5-4.9); POTASSIUM 4.1 mmol/L (3.5-5.1); SODIUM SERUM 144 mmol/L (136-145); UREA NITROGEN, BLOOD 30 mg/dL (7-18)
[2017-05-12 07:03] LABS: CHOLESTEROL 116 mg/dL (<200); HDL CHOLESTEROL 51 mg/dL (40-60); LDL 53 mg/dL (0-99); THYROID STIMULATING HORMONE 0.417 uIU/mL (0.358-3.74); TRIGLYCERIDES 72 mg/dL (30-150)
--- NOTE | 2017-05-12 07:30 | NUR ---
RECEIVED PT. IN AM,CONFUSED,TALKS TO SELF ON OCC.COOPERATIVE AT TIMES.IV INFUSING VS STABLE.
--- NOTE | 2017-05-12 07:40 | NUR ---
HAS ONE TO ONE SITTER.
[2017-05-12] MEDS: FAMOTIDINE/PF INJ 20 MG/2 ML VIAL IV SCH ×2 (09:21→20:15)
[2017-05-12] MEDS: IV NS 0.9% 1,000 ML IV PRN ×2 (09:22→20:15)
[2017-05-12] MEDS ORDERED: NYSTATIN TOP POWDER 15 GM BOTTLE TP PRN (10:00)
[2017-05-12] MEDS ORDERED: Z GUARD REMEDY 4 OZ OINT TP PRN (10:00)
[2017-05-12] MEDS ORDERED: TEMAZEPAM 7.5 MG CAPSULE PO PRN (10:00)
[2017-05-12] MEDS ORDERED: LATANOPROST EYE DROP 0.005% 2.5 ML BOTTLE EACHEYE SCH (10:00)
[2017-05-12] MEDS ORDERED: SENNOSIDES 8.6 MG TABLET PO SCH (10:00)
[2017-05-12] MEDS ORDERED: MAG HYDROX/AL HYDROX/SIMETH 30 ML UDC PO PRN (10:00)
[2017-05-12] MEDS ORDERED: SIMVASTATIN 10 MG TABLET PO SCH (10:00)
[2017-05-12] MEDS ORDERED: ACETAMINOPHEN 325 MG TABLET PO PRN (10:00)
[2017-05-12] MEDS ORDERED: ONDANSETRON 4 MG TAB.RAPDIS SL PRN (10:00)
[2017-05-12] MEDS ORDERED: MAGNESIUM HYDROXIDE 30 ML UDC PO PRN (10:00)
[2017-05-12] MEDS ORDERED: TAMSULOSIN 0.4 MG CAP.SR.24H PO SCH (10:00)
[2017-05-12] MEDS ORDERED: LORAZEPAM 0.5 MG TABLET PO PRN (10:00)
[2017-05-12] MEDS: LORAZEPAM INJ 2 MG/ML VIAL IV PRN (10:10)
--- NOTE | 2017-05-12 10:10 | NUR ---
EXTREMELY AGITATED,MEDICATED WITH ATIVAN IV.
[2017-05-12 10:42] LABS: ALBUMIN 3.3 g/dL (3.4-5.0); BILIRUBIN,DIRECT 0.1 mg/dL (0.0-0.2); BILIRUBIN,TOTAL 0.6 mg/dL (0.2-1.0); TOTAL PROTEIN, SERUM 6.9 g/dL (6.4-8.2)
--- NOTE | 2017-05-12 11:30 | NUR ---
DR. PRINCE IN TO SEE PT.
--- NOTE | 2017-05-12 14:30 | NUR ---
PT. MUCH CALMER THAN THIS AM.
[2017-05-12] MEDS: LATANOPROST EYE DROP 0.005% 2.5 ML BOTTLE EACHEYE SCH (17:15)
[2017-05-12] MEDS: SIMVASTATIN 10 MG TABLET PO SCH (17:16)
[2017-05-12] MEDS: DOCUSATE SODIUM 100 MG CAPSULE PO SCH (17:16)
[2017-05-12] MEDS: OLANZAPINE 5 MG TABLET PO SCH (17:16)
[2017-05-12] MEDS: BACITRACIN/POLYMYXIN B 15 GM TUBE TP SCH (17:16)
[2017-05-12] MEDS: BENZTROPINE MESYLATE (1 MG) 1 MG TABLET PO SCH (17:16)
--- NOTE | 2017-05-12 17:30 | NUR ---
FAMILY IN TO VISIT.VS STABLE.
--- NOTE | 2017-05-12 19:34 | NUR ---
WELL SERVICE PUMP EQUIPMENT OPERATOR INITIAL NOTES REPORT RECEIVED FROM AM NURSE. PT IS IN BED CALM NO SIGNS OF DISTRESS OR SOB. IV WAS FLUSHED AND KERLIX WAS CHANGED. IV IS PATENT AND INTACT WITH NS @ 100 ML/HR. BED IS IN LOW AND LOCKED POSITION. WILL CONTINUE TO MONITOR PT
[2017-05-12] MEDS: ENOXAPARIN SODIUM 40 MG/0.4 ML DISP.SYRIN SQ SCH (20:17)
[2017-05-12] MEDS: SENNOSIDES 8.6 MG TABLET PO SCH (21:18)
[2017-05-12] MEDS: TAMSULOSIN 0.4 MG CAP.SR.24H PO SCH (21:18)
[2017-05-13] MEDS: LORAZEPAM INJ 2 MG/ML VIAL IV PRN ×2 (01:24→13:57)
[2017-05-13] MEDS: IV NS 0.9% 1,000 ML IV PRN ×2 (05:55→16:15)
[2017-05-13] MEDS: LEVOFLOXACIN (500MG) 500 MG TABLET PO SCH (06:00)
--- NOTE | 2017-05-13 06:42 | NUR ---
MS RN CLOSING NOTES PT IS IN BED SLEEPING A/O X1. NO SIGNS OF DISTRESS OR SOB. IV ACCESS WAS PLACED ON LEFT FOREARM WITH NS @100 ML/HR. PT WAS REFUSING PO MEDS, WILL ADVISE DAY SHIFT TO ORDER IV ABX. PT WAS RESTLESS ALL NIGHT AND BARELY FELL ASLEEP THIS MORNING. WILL ENDORSE TO DAYSHIF
[2017-05-13 07:13] LABS: BASOPHILS % (AUTO) 0.3 % (0.0-2.0); EOSINOPHILS # (AUTO) 0.1 /CMM (0.0-0.7); EOSINOPHILS % (AUTO) 1.4 % (0.0-6.0); HEMATOCRIT 34 % (39-51); HEMOGLOBIN 11.6 g/dL (13.5-17.5); LYMPHOCYTES # (AUTO) 1.7 /CMM (0.8-4.8); LYMPHOCYTES % (AUTO) 20.2 % (20.0-44.0); MEAN CORPUSCULAR HEMOGLOBIN 33 PG (26.0-33.0); MEAN CORPUSCULAR HGB CONC 34 g/dl (31.0-36.0); MEAN CORPUSCULAR VOLUME 96 fL (80-96); MONOCYTES # (AUTO) 0.6 /CMM (0.1-1.30); MONOCYTES % (AUTO) 7.4 % (2.0-12.0); NEUTROPHILS % (AUTO) 70.7 % (43.0-81.0); PLATELET COUNT (AUTO) 151 /CMM (150-450); RDW COEFFICIENT OF VARIATION 13.4 (11.5-15.0); RED BLOOD CELL COUNT(AUTO) 3.55 MIL/uL (4.5-6.0); WHITE BLOOD COUNT (AUTO) 8.4 K/uL (4.3-11.0)
--- NOTE | 2017-05-13 07:19 | NUR ---
ms rn initial notes Received patient in bed, asleep, head of bed elevated, no SOB or distress noted. On room air and tolerated well. Sitter at bed side for constant monitoring. IV intact and patent with IVF infusing well. Alert and oriented x 1, confused patient. Kept patient clean and comfortable in bed, call light with in patient reach, will continue to monitor accordingly.
[2017-05-13 07:26] LABS: CALCIUM, SERUM 7.8 mg/dL (8.5-10.1); CARBON DIOXIDE 29 mmol/L (21-32); CHLORIDE 108 mmol/L (98-107); CREATININE 0.6 mg/dL (0.6-1.3); GLUCOSE 87 mg/dL (74-106); PHOSPHORUS 2.3 mg/dL (2.5-4.9); POTASSIUM 3.2 mmol/L (3.5-5.1); SODIUM SERUM 145 mmol/L (136-145); UREA NITROGEN, BLOOD 21 mg/dL (7-18)
[2017-05-13 08:00] VITALS: BP_SYST 117; BP_SYST 123; BP_SYST 146; BP_DIAS 71; BP_DIAS 73; BP_DIAS 80
[2017-05-13] MEDS: cetrizine 10 MG TABLET PO SCH (08:25)
[2017-05-13] MEDS: MEMANTINE HCL 5 MG TABLET PO SCH (08:25)
[2017-05-13] MEDS: ESCITALOPRAM OXALATE (10 MG) 10 MG TABLET PO SCH (08:25)
[2017-05-13] MEDS: OLANZAPINE 5 MG TABLET PO SCH ×2 (08:25→16:11)
[2017-05-13] MEDS: BENZTROPINE MESYLATE (1 MG) 1 MG TABLET PO SCH ×2 (08:25→16:11)
[2017-05-13] MEDS: ASPIRIN 81 MG TAB.CHEW PO SCH (08:25)
[2017-05-13] MEDS: FAMOTIDINE/PF INJ 20 MG/2 ML VIAL IV SCH ×2 (08:25→20:19)
[2017-05-13] MEDS: DOCUSATE SODIUM 100 MG CAPSULE PO SCH ×2 (08:25→16:11)
[2017-05-13] MEDS: FLUTICASONE PROPIONATE 16 GM BOTTLE NS SCH (08:28)
[2017-05-13] MEDS: DOXYCYCLINE HYCLATE (100 MG) 100 MG TABLET PO SCH ×2 (09:25→20:19)
[2017-05-13] MEDS: BACITRACIN/POLYMYXIN B 15 GM TUBE TP SCH ×2 (09:26→16:11)
[2017-05-13] MEDS: POTASSIUM CHLORIDE 20 MEQ TAB.PRT.SR PO SCH ×2 (11:31→13:57)
[2017-05-13] MEDS ORDERED: K PHOS NEUTRAL 250 MG TABLET PO ONE (15:30)
[2017-05-13 16:00] VITALS: BP 119/71
[2017-05-13] MEDS: SIMVASTATIN 10 MG TABLET PO SCH (17:18)
[2017-05-13] MEDS: LATANOPROST EYE DROP 0.005% 2.5 ML BOTTLE EACHEYE SCH (17:18)
--- NOTE | 2017-05-13 19:09 | NUR ---
ms rn notes All needs provided, attended, and anticipated. kept patient clean and comfortable in bed, call light with in patient reach. Sitter at bedside for constant monitoring. Endorsed to next shift RN to continue care.
--- NOTE | 2017-05-13 19:42 | NUR ---
CEMENTER MACHINE INITIAL NOTES REPORT RECEIVED FROM AM NURSE. PT IS IN BED CALM NO SIGNS OF DISTRESS OR SOB. APPEARS TO BE RESTLESS, IN AND OUT OF SLEEP. IV IS PATENT AND INTACT WITH NS @ 100 ML/HR. BED IS IN LOW AND LOCKED POSITION. BED ALARM IS ON. SITTER IS AT BEDSIDE WILL CONTINUE TO MONITOR PT
[2017-05-13 20:00] VITALS: BP 147/79
[2017-05-13] MEDS: ENOXAPARIN SODIUM 40 MG/0.4 ML DISP.SYRIN SQ SCH (20:19)
[2017-05-13] MEDS: SENNOSIDES 8.6 MG TABLET PO SCH (21:00)
[2017-05-13] MEDS: TAMSULOSIN 0.4 MG CAP.SR.24H PO SCH (21:00)
--- NOTE | 2017-05-13 22:00 | NUR ---
MEDS MEDS WERE CRUSHED AND PUT IN APPLE SAUCE FOR PT. PT WAS REFUSING TO EAT THE APPLE SAUCE, ONCE HE DID TRY TO EAT IT HE WOULD JUST SPIT IT BACK OUT AT US. MULTIPLE ATTEMPTS WERE DONE BUT HE SPIT OUT EVERY TIME. WILL ATTEMPT AGAIN FOR 0600 MEDS.
[2017-05-14] MEDS: IV NS 0.9% 1,000 ML IV PRN ×2 (02:30→16:21)
--- NOTE | 2017-05-14 06:00 | NUR ---
PT IS COMBATIVE AND UNCOOPERATIVE TO TAKE MEDS. WILL CONTACT PHARMACY TO CHANGE MED TIME OF ANTIBIOTIC
[2017-05-14 06:45] LABS: BASOPHILS % (AUTO) 0.3 % (0.0-2.0); EOSINOPHILS % (AUTO) 0.4 % (0.0-6.0); HEMATOCRIT 37 % (39-51); HEMOGLOBIN 12.7 g/dL (13.5-17.5); LYMPHOCYTES # (AUTO) 1.2 /CMM (0.8-4.8); LYMPHOCYTES % (AUTO) 10.3 % (20.0-44.0); MEAN CORPUSCULAR HEMOGLOBIN 33 PG (26.0-33.0); MEAN CORPUSCULAR HGB CONC 34 g/dl (31.0-36.0); MEAN CORPUSCULAR VOLUME 95 fL (80-96); MONOCYTES # (AUTO) 0.7 /CMM (0.1-1.30); MONOCYTES % (AUTO) 5.8 % (2.0-12.0); NEUTROPHILS # (AUTO) 9.7 /CMM (1.8-8.9); NEUTROPHILS % (AUTO) 83.2 % (43.0-81.0); PLATELET COUNT (AUTO) 166 /CMM (150-450); RDW COEFFICIENT OF VARIATION 13.3 (11.5-15.0); RED BLOOD CELL COUNT(AUTO) 3.88 MIL/uL (4.5-6.0); WHITE BLOOD COUNT (AUTO) 11.6 K/uL (4.3-11.0)
--- NOTE | 2017-05-14 06:48 | NUR ---
MS RN CLOSING NOTES PT IS IN BED SLEEPING A/O X1. NO SIGNS OF DISTRESS OR SOB. IV ACCESS WAS PLACED ON LEFT FOREARM WITH NS @100 ML/HR. PT WAS REFUSING PO MEDS, WILL ADVISE DAY SHIFT TO ORDER IV ABX. PT WAS RESTLESS ALL NIGHT AND BARELY FELL ASLEEP THIS MORNING. PT REFUSED NIGHT MEDS. WILL ENDORSE TO DAYSHIFT
[2017-05-14 07:19] LABS: CALCIUM, SERUM 8.1 mg/dL (8.5-10.1); CARBON DIOXIDE 28 mmol/L (21-32); CHLORIDE 105 mmol/L (98-107); CREATININE 0.7 mg/dL (0.6-1.3); GLUCOSE 90 mg/dL (74-106); POTASSIUM 3.4 mmol/L (3.5-5.1); SODIUM SERUM 142 mmol/L (136-145); UREA NITROGEN, BLOOD 13 mg/dL (7-18)
--- NOTE | 2017-05-14 07:40 | NUR ---
RN MS NOTES RECEIVED PATIENT IN BED,SITTER AT BED SIDE. NO APPARENT DISTRESS NOTED. PATIENT IS SLEEPING COMFORTABLY, EASILY AROUSED. LFA IV PATENT INFUSING NS AT 100ML/HR. ALL NEEDS MET, KEPT CLEAN AND DRY.
[2017-05-14 08:00] VITALS: BP 128/59
[2017-05-14] MEDS: DOCUSATE SODIUM 100 MG CAPSULE PO SCH ×2 (08:03→17:00)
[2017-05-14] MEDS: LEVOFLOXACIN (500MG) 500 MG TABLET PO SCH (08:03)
[2017-05-14] MEDS: FAMOTIDINE/PF INJ 20 MG/2 ML VIAL IV SCH ×2 (08:03→21:02)
[2017-05-14] MEDS: OLANZAPINE 5 MG TABLET PO SCH ×2 (08:03→17:00)
[2017-05-14] MEDS: BENZTROPINE MESYLATE (1 MG) 1 MG TABLET PO SCH ×2 (08:03→17:00)
[2017-05-14] MEDS: MEMANTINE HCL 5 MG TABLET PO SCH (08:03)
[2017-05-14] MEDS: ESCITALOPRAM OXALATE (10 MG) 10 MG TABLET PO SCH (08:03)
[2017-05-14] MEDS: ASPIRIN 81 MG TAB.CHEW PO SCH (08:04)
[2017-05-14] MEDS: DOXYCYCLINE HYCLATE (100 MG) 100 MG TABLET PO SCH ×2 (08:04→21:03)
[2017-05-14] MEDS: FLUTICASONE PROPIONATE 16 GM BOTTLE NS SCH (08:19)
[2017-05-14] MEDS: BACITRACIN/POLYMYXIN B 15 GM TUBE TP SCH ×2 (08:19→17:00)
[2017-05-14] MEDS ORDERED: LEVO500T15 PO (09:59)
[2017-05-14] MEDS ORDERED: DOXY100T2 PO (09:59)
[2017-05-14] MEDS: cetrizine 10 MG TABLET PO SCH (10:11)
[2017-05-14] MEDS ORDERED: POTASSIUM CHLORIDE 20 MEQ TAB.PRT.SR PO SCH (12:00)
[2017-05-14] MEDS ORDERED: POTASSIUM CHLORIDE 20 MEQ POWDER PACKET NG SCH (13:30)
--- NOTE | 2017-05-14 15:26 | NUR ---
Called daughter Maritza ([phone]) and left a message on her voicemail. SW indicated that since the patient has been transferred to the medical floor, case management will be responsible for placement. BAO provided hospital telephone number and stated to her that she can asked to be transferred to the case management dept as they would be dealing with placement. SW left her contact information should she have any questions.
[2017-05-14 16:00] VITALS: BP 119/63
[2017-05-14] MEDS: SIMVASTATIN 10 MG TABLET PO SCH (17:48)
[2017-05-14] MEDS: LATANOPROST EYE DROP 0.005% 2.5 ML BOTTLE EACHEYE SCH (17:49)
--- NOTE | 2017-05-14 17:54 | NUR ---
rn ms notes patient refused meds spit them out.
--- NOTE | 2017-05-14 19:19 | NUR ---
RN MS NOTES PATIENT IN BED, SLEEPING COMFORTABLY, EASILY AROUSE. ALL NEEDS MET, KEPT CLEAN AND DRY, WOUND TX DONE ORDERED. ENDORSED TOP PM SHIT TO HAVE MD OR PSYCH CALL HEMAL GUERRERO THE DURABLE POWER OF RETREAD SUPERVISOR AND IS UPSET THAT THE DR HAS NOT CONTACTED HER. PATIENT SLEPT MOST OF THE SHIFT. ST ATTEMPTED TO DO EVAL, BUT PATIENT WOULD NOT WAKE UP.WILL ENDOSRE CARE TO PM SHIFT.
--- NOTE | 2017-05-14 19:20 | NUR ---
RN NOTES RECEIVED PT ASLEEP, HOB ELEVATED, BREATHING REGULAR AND UNLABORED, NO SOB, NOT IN DISTRESS. ON ROOM AIR WITH GOOD SATURATION. SITTER AT BEDSIDE FOR CONSTANT MONITORING OF THE PT. PT ALERT AND ORIENTED X1, CONFUSED, DENIES ANY DISCOMFORT AT THIS TIME. IV ACCESS ON LEFT FOREARM PATENT AND INTACT WITH ONGOING IVF INFUSING WELL. KEPT PT COMFORTABLE, CLEAN AND DRY. BED IN THE LOWEST POSITION, LOCKED, SIDERAILS X3 UP WITH CALL LIGHT WITH IN REACH. WILL CONTINUE TO MONITOR PT.
[2017-05-14] MEDS: ENOXAPARIN SODIUM 40 MG/0.4 ML DISP.SYRIN SQ SCH (21:03)
[2017-05-14] MEDS: SENNOSIDES 8.6 MG TABLET PO SCH (21:05)
[2017-05-14] MEDS: TAMSULOSIN 0.4 MG CAP.SR.24H PO SCH (21:05)
[2017-05-14 22:00] VITALS: BP 122/71
[2017-05-15] MEDS: IV NS 0.9% 1,000 ML IV PRN (02:15)
[2017-05-15] MEDS: LEVOFLOXACIN (500MG) 500 MG TABLET PO SCH (06:12)
--- NOTE | 2017-05-15 06:58 | NUR ---
RN NOTES PT ASLEEP, HOB ELEVATED, BREATHING REGULAR AND UNLABORED, NO SIGNS OF DISTRESS AND DISCOMFORT NOTED. ON ROOM AIR AND TOLERATED WELL. VITAL SIGNS STABLE, NO COMPLAIN OF PAIN, NO EPISODE OF NAUSEA AND VOMITING. PT COOPERATIVE, CALM AND QUIET WITH IN THE SHIFT. KEPT PT CLEAN AND DRY. TURNED AND REPOSITION SCHEDULED. ALL DUE MEDS GIVEN AND TOLERATED WELL. ALL NEEDS MET. NO SIGNIFICANT CHANGE IN CONDITION NOTED. SITTER AT BEDSIDE FOR CONSTANT MONITORING. WILL ENDORSE TO MORNING RN FOR CONTINUITY OF CARE.
[2017-05-15 08:00] VITALS: BP 138/76
--- NOTE | 2017-05-15 09:30 | NUR ---
TOO DROWSY IN AM TO ADMINISTER MEDS.
[2017-05-15] MEDS: FAMOTIDINE/PF INJ 20 MG/2 ML VIAL IV SCH (09:33)
[2017-05-15] MEDS: BACITRACIN/POLYMYXIN B 15 GM TUBE TP SCH (09:34)
--- NOTE | 2017-05-15 10:00 | NUR ---
RN SPOKE WITH ELVIA QUACH- SHE WILL CALL PT,S DTR. REGARDING STATUS.
--- NOTE | 2017-05-15 10:00 | NUR ---
REFUSED WD. CARE,KICKING AND FIGHTING RN.SPIT ON FLOOR SEVERAL TIMES. HAS ONE TO ONE SITTER.
[2017-05-15] MEDS: LORAZEPAM INJ 2 MG/ML VIAL IV PRN (10:04)
--- NOTE | 2017-05-15 10:04 | NUR ---
GIVEN ATIVAN INJECTABLE IS BECOMING VERY AGITATED.
--- NOTE | 2017-05-15 10:05 | NUR ---
Had a 15 minute conversation with the patient's daughter Maritza ([phone]) who stated that she is very upset that none of the doctors have called her. SW informed her that she will notify the psychiatrist Dr. Gómez to call her. Dtr reported that she cannot make an informed decision about placement without speaking to the psychiatrist. Per Dr. Gómez, patient is under Dr. Bustamante and sw informed him as well. Informed that she will get a call if the patient is transferred back to geropsych unit but that since patient is on medical floor, case management will be responsible for placement. Per dtr, patient was accepted to [facility] ([address] [facility], [place] [address] and case management will follow up. Elijah informed case investigator of the above information and stated she will coordinate for daughter and physician to speak.
[2017-05-15] MEDS: ESCITALOPRAM OXALATE (10 MG) 10 MG TABLET PO SCH (11:46)
[2017-05-15] MEDS: cetrizine 10 MG TABLET PO SCH (11:46)
[2017-05-15] MEDS: OLANZAPINE 5 MG TABLET PO SCH (11:46)
[2017-05-15] MEDS: MEMANTINE HCL 5 MG TABLET PO SCH (11:46)
[2017-05-15] MEDS: DOXYCYCLINE HYCLATE (100 MG) 100 MG TABLET PO SCH (11:47)
[2017-05-15] MEDS: BENZTROPINE MESYLATE (1 MG) 1 MG TABLET PO SCH (11:47)
[2017-05-15] MEDS: DOCUSATE SODIUM 100 MG CAPSULE PO SCH (11:47)
[2017-05-15] MEDS: ASPIRIN 81 MG TAB.CHEW PO SCH (11:47)
[2017-05-15] MEDS: FLUTICASONE PROPIONATE 16 GM BOTTLE NS SCH (11:48)
--- NOTE | 2017-05-15 14:15 | NUR ---
DTR. CALLED REGARDING TRANSFER.
--- NOTE | 2017-05-15 14:30 | NUR ---
REFUSED PHOTOS,FOR DC.
--- NOTE | 2017-05-15 14:45 | NUR ---
Hiral ENNIS DC.
--- NOTE | 2017-05-15 15:30 | NUR ---
TRANSFERRED TO [facility] AFTER BEING DC,D FROM MED SURG, [facility].TAKEN VIA W/C TO RM. 214-2.REPORT GIVEN TO GINA. TITUS.
== END 2017-05-15 15:40 | DRG 193 ==
LOC: MED 18:08
PROVIDERS: ADMIT Internal Medicine; ATTEND Internal Medicine
DX: J15.9 Unspecified bacterial pneumonia (principal); G93.41 Metabolic encephalopathy; F33.3 Major depressive disorder, recurrent, severe with psychotic symptoms; L03.114 Cellulitis of left upper limb; D72.829 Elevated white blood cell count, unspecified; E78.5 Hyperlipidemia, unspecified; H40.9 Unspecified glaucoma; M19.90 Unspecified osteoarthritis, unspecified site; N40.0 Benign prostatic hyperplasia without lower urinary tract symptoms; Z79.899 Other long term (current) drug therapy; Z86.73 Personal history of transient ischemic attack (TIA), and cerebral infarction without residual deficits; I10 Essential (primary) hypertension; K21.9 Gastro-esophageal reflux disease without esophagitis; H91.10 Presbycusis, unspecified ear; K58.9 Irritable bowel syndrome, unspecified; K57.90 Diverticulosis of intestine, part unspecified, without perforation or abscess without bleeding; M48.06 Spinal stenosis, lumbar region; F29 Unspecified psychosis not due to a substance or known physiological condition; G89.29 Other chronic pain; F03.90 Unspecified dementia, unspecified severity, without behavioral disturbance, psychotic disturbance, mood disturbance, and anxiety; K59.00 Constipation, unspecified; R11.2 Nausea with vomiting, unspecified
CPT/HCPCS: 36415; 74000-TC; 80048-TC; 80061-TC; 80076-TC; 81000-TC; 83735-TC; 84100-TC; 84443-TC; 85025-TC; 87081-TC; 92521; A6402; A6403; J1650; J2060; J3490; J7030; Z7610

== ENCOUNTER 2017-05-15 15:25 | Inpatient (IN) | payer MEDICARE ==
[~2017-05-15] VITALS: Ht 182.9 cm; Wt 64.9 kg
[~2017-05-15 15:25] MED LIST changes: +DOXY100T2 PO; +LEVO500T15 PO
[2017-05-15] MEDS ORDERED: MAG HYDROX/AL HYDROX/SIMETH 30 ML UDC PO PRN (16:00)
[2017-05-15] MEDS ORDERED: MAGNESIUM HYDROXIDE 30 ML UDC PO PRN (16:00)
[2017-05-15] MEDS ORDERED: ACETAMINOPHEN 325 MG TABLET PO PRN (16:00)
--- NOTE | 2017-05-15 16:00 | NUR ---
GPS/RN PATIENT ADMITTED ON A 525 HOLD FOR GD UNDER THE CARE OF DR PEARL AND DR BAINS. DR PEARL ON UNIT AND AWARE OF NEW ADMISSION AND DR BAINS WAS NOTIFIED AND AWARE OF NEW ADMISSION AND NEED TO RECONCILE MEDICATIONS IN THE SYSTEM. UPON FACE TO FACE ASSESSMENT PATIENT IS ALERT X 1, STABLE CONDITION, CONFUSED, DISORGANIZED, AGITATED, ANXIOUS, DISHEVELED, SLOW SPEECH, AND IS A POOR HISTORIAN. PATIENT REFUSED TO SIGN ADMISSION PAPERWORK, COSIGNED BY 2 RN, BELONGINGS CHECKED IN, NO CONTRABAND. PATIENT AGITATED, UNABLE TO DO FULL SKIN ASSESSMENT BUT PICTURES TAKEN OF UPPER AND LOWER EXTREMITIES, WOUND CONSULT ORDERED, WILL ENDORSE TO ONCOMING SHIFT FOR ASSESSMENT OF SACRAL AREA. PATIENT IS CONFUSED BUT WHEN ASSESSED DENIES ANY SI/HI IDEATION AT THIS TIME, WILL CONTINUE TO MONITOR Q 15 MIN FOR SAFETY AND BEHAVIOR. Addendum: 05/15/17 at 1931 by KATHE LANDERS RN DR PEARL SPOKE WITH DAUGHTER TANG, SHE IS AWARE OF PATIENTS ADMISSION TO THE UNIT. Addendum: 05/15/17 at 1934 by KATHE LANDERS RN REPORTED TO ONCOMING SHIFT TO FOLLOW UP WITH DNR/DNI AND ENDORSE TO DAY SHIFT TO FOLLOW UP WELL.
[2017-05-15] MEDS ORDERED: OLANZAPINE 5 MG/TAB.RAPDIS PO PRN (17:00)
[2017-05-15] MEDS: DIVALPROEX SODIUM 125 MG CAP.SPRINK PO SCH (17:00)
--- NOTE | 2017-05-15 18:38 | NUR ---
GPS/RN PATIENT REFUSED DEPAKOTE 125 MG X 3, EXPLAINED RISKS AND BENEFITS, PATIENT IS CONFUSED AND CONTINUES TO REFUSE.
[2017-05-15] MEDS: LEVOFLOXACIN (500MG) 500 MG TABLET PO SCH (20:00)
[2017-05-15 20:33] VITALS: BP 125/75
[2017-05-15] MEDS: DOXYCYCLINE HYCLATE (100 MG) 100 MG TABLET PO SCH (21:00)
--- NOTE | 2017-05-15 21:30 | NUR ---
GPS RN: PATIENT IN THE DINING ROOM REFUSED NIGHT TIME SCHEDULED MEDICATIONS. PATIENT IS CONFUSED AND TALKING NON SENSICAL STUFF THIS TIME. OFFERED THE MEDICATION TWICE BUT STILL CONTINUE TO REFUSE. CHARGE NURSE AWARE. WILL CONTINUE TO MONITOR PATIENT.
[2017-05-15] MEDS: TAMSULOSIN 0.4 MG CAP.SR.24H PO SCH (22:00)
--- NOTE | 2017-05-16 07:30 | NUR ---
RN-CO: Patient is aggressive when staff is giving care. Climbing out of bed. Obtained an order from Dr Bustamante, noted and carried out.
[2017-05-16 08:00] VITALS: BP 126/69
[2017-05-16] MEDS ORDERED: LOPERAMIDE HCL (2 MG CAP) 2 MG CAPSULE PO PRN (09:00)
[2017-05-16] MEDS: DOCUSATE SODIUM 100 MG CAPSULE PO SCH ×2 (09:03→17:00)
[2017-05-16] MEDS: ASPIRIN 81 MG TAB.CHEW PO SCH (09:03)
[2017-05-16] MEDS: BISACODYL (5 MG) 5 MG TABLET.DR PO SCH (09:04)
[2017-05-16] MEDS: DOXYCYCLINE HYCLATE (100 MG) 100 MG TABLET PO SCH ×2 (09:04→21:05)
[2017-05-16] MEDS: ESCITALOPRAM OXALATE (10 MG) 10 MG TABLET PO SCH (09:04)
[2017-05-16] MEDS: MULTIVITAMINS,THERAGRAN 1 UDTAB TABLET PO SCH (09:04)
[2017-05-16] MEDS: cetrizine 10 MG TABLET PO SCH (09:04)
[2017-05-16] MEDS: DIVALPROEX SODIUM 125 MG CAP.SPRINK PO SCH ×3 (09:04→17:33)
[2017-05-16] MEDS: SENNOSIDES 8.6 MG TABLET PO SCH (09:04)
[2017-05-16] MEDS: PANTOPRAZOLE 40 MG TABLET.DR PO SCH (09:04)
[2017-05-16] MEDS: MEMANTINE HCL 5 MG TABLET PO SCH (09:05)
[2017-05-16] MEDS: LORAZEPAM 0.5 MG TABLET PO PRN (09:06)
[2017-05-16] MEDS: NYSTATIN TOP POWDER 15 GM BOTTLE TP SCH ×3 (09:09→17:34)
[2017-05-16] MEDS: FLUTICASONE PROPIONATE 16 GM BOTTLE NS SCH (09:10)
--- NOTE | 2017-05-16 09:42 | NUR ---
GPS RN NOTE: PATIENT RESTLESS AND ANXIOUS REFUSING TO EAT ATIVAN 0.5 MG PO PRN GIVEN PER ORDER WILL CONTINUE MONITORING FOR SAFETY AND BEHAVIOR Q 15 MIN
--- NOTE | 2017-05-16 10:23 | NUR ---
SW met with the patient in the activity room. He was seated in his gerichair and was often trying to pull his blanket out from the bottom. Patient was agitated with the addiction social worker's questions and often had to be re-directed. Patient's mood was agitated/irritable and affect was congruent with mood. patient had to be re-directed several times as he would not respond to the questions provided. Patient's PROVIDER RELATIONS CONSULTANT reported that patient has been agitated and did not want to eat his breakfast. SW was unable to access orientation as patient would not respond to the questions directly. He denied suicidal/homicidal ideations. Denied auditory/visual hallucinations. I have reviewed this patient's psychosocial dated 05/04/2017 an I can attest to the accuracy of the information therein. There have been no changes since his last assessment. Patient's placement remains the same and patient has been accepted to [facility] ([address] [place] [address] ) per Keyon at the facility. BAO contacted the patient's dtr Hilda Mak ([phone]) who stated that she agrees with the discharge plan and that patient may transfer to [facility] when he is ready to be discharged. She also asked about applying for medi-nica and BAO provided her with HCFS representatives name and number but stated that she will notify the rep to call her to obtain more information. She also reported she had some insurance related questions to ask the facility and BAO informed the padding machine operator if someone can please call her to address her questions. Patient's dtr reported being very happy about addiction social worker continuing the patient's case and stated she feels a lot better after speaking with the psychiatrist yesterday.
--- NOTE | 2017-05-16 11:38 | NUR ---
WOUND CARE CONSULT: PT PRESENTS WITH INCONTINENCE, VIRGIE SCORE OF 15. PT HAS BLANCHING REDNESS TO SACRAL AREA WITH THICKENED SKIN ON BUTTOCKS. SKIN TEARS NOTED TO BILATERAL LOWER LEGS, PRESENT ON ADMISSION. NO SIGN OF INFECTION NOTED. RECOMMENDATIONS MADE FOR SKIN PROTECTION AND WOUND CARE. DISCUSSED WITH NURSING STAFF. WILL SEE PRN. ROSA IN AGREEMENT WITH PLAN OF CARE. Addendum: 05/16/17 at 1140 by TONY MCNALLY WNDNU Amended: Links added.
[2017-05-16] MEDS ORDERED: Z GUARD REMEDY 2 OZ OINT TP PRN (12:00)
[2017-05-16] MEDS: Z GUARD REMEDY 2 OZ OINT TP SCH (12:20)
--- NOTE | 2017-05-16 14:47 | NUR ---
GPS RN NOTE: POLST OBTAIN PLACED IN THE CHART FOR PATIENT CODE STATUS, T.O ORDER FROM SIMBA Weathers PT DNR/DNI ORDER PLACED WITNESS WITH CUTTER HAND WILL CONTINUE MONITORING FOR SAFETY AND BEHAVIOR Q 15 MIN
[2017-05-16 15:58] VITALS: BP 142/76
[2017-05-16] MEDS: SIMVASTATIN 10 MG TABLET PO SCH (18:08)
[2017-05-16] MEDS: LATANOPROST EYE DROP 0.005% 2.5 ML BOTTLE EACHEYE SCH (18:09)
[2017-05-16 19:51] VITALS: BP 129/75
[2017-05-16 19:56] LABS: ALANINE AMINOTRANSFERASE 30 U/L (12-78); ALBUMIN 2.8 g/dL (3.4-5.0); ALKALINE PHOSPHATASE 135 U/L (46-116); ASPARTATE AMINOTRANSFERASE 22 U/L (15-37); BILIRUBIN,TOTAL 0.5 mg/dL (0.2-1.0); CALCIUM, SERUM 8.5 mg/dL (8.5-10.1); CARBON DIOXIDE 34 mmol/L (21-32); CHLORIDE 103 mmol/L (98-107); CREATININE 0.7 mg/dL (0.6-1.3); GLUCOSE 111 mg/dL (74-106); POTASSIUM 2.9 mmol/L (3.5-5.1); SODIUM SERUM 142 mmol/L (136-145); TOTAL PROTEIN, SERUM 6.6 g/dL (6.4-8.2); UREA NITROGEN, BLOOD 16 mg/dL (7-18)
[2017-05-16 19:57] VITALS: BP 124/75
[2017-05-16] MEDS: LEVOFLOXACIN (500MG) 500 MG TABLET PO SCH (21:05)
[2017-05-16] MEDS: TAMSULOSIN 0.4 MG CAP.SR.24H PO SCH (21:06)
[2017-05-16] MEDS: TEMAZEPAM 7.5 MG CAPSULE PO PRN (21:06)
[2017-05-17] MEDS ORDERED: POTASSIUM CHLORIDE 20 MEQ TAB.PRT.SR PO ONE ×2 (00:30)
--- NOTE | 2017-05-17 00:30 | NUR ---
GPS RN NOTE, PATIENT LAB RESULTS ARE FOLLOWS POTASSIUM 2.9 L. [facility] AND INFORMED DR ESMER KAPLAN OF MY FINDINGS. DR ESMER KAPLAN ORDERED TO GIVE POTASSIUM CHLORIDE 60MEQ PO ONCE. ALL ORDERS NOTED AND CARRIED OUT WILL CONTINUE TO MONITOR THIS PATIENT.
[2017-05-17 07:45] LABS: BASOPHILS % (AUTO) 0.3 % (0.0-2.0); EOSINOPHILS # (AUTO) 0.2 /CMM (0.0-0.7); EOSINOPHILS % (AUTO) 2.1 % (0.0-6.0); HEMATOCRIT 39 % (39-51); HEMOGLOBIN 13.2 g/dL (13.5-17.5); LYMPHOCYTES # (AUTO) 1.4 /CMM (0.8-4.8); LYMPHOCYTES % (AUTO) 16.8 % (20.0-44.0); MEAN CORPUSCULAR HEMOGLOBIN 33 PG (26.0-33.0); MEAN CORPUSCULAR HGB CONC 34 g/dl (31.0-36.0); MEAN CORPUSCULAR VOLUME 95 fL (80-96); MONOCYTES # (AUTO) 0.5 /CMM (0.1-1.30); MONOCYTES % (AUTO) 6.2 % (2.0-12.0); NEUTROPHILS # (AUTO) 6.4 /CMM (1.8-8.9); NEUTROPHILS % (AUTO) 74.6 % (43.0-81.0); PLATELET COUNT (AUTO) 207 /CMM (150-450); RDW COEFFICIENT OF VARIATION 13.1 (11.5-15.0); RED BLOOD CELL COUNT(AUTO) 4.06 MIL/uL (4.5-6.0); WHITE BLOOD COUNT (AUTO) 8.6 K/uL (4.3-11.0)
[2017-05-17 07:50] LABS: CALCIUM, SERUM 8.5 mg/dL (8.5-10.1); CARBON DIOXIDE 31 mmol/L (21-32); CHLORIDE 105 mmol/L (98-107); CREATININE 0.6 mg/dL (0.6-1.3); GLUCOSE 91 mg/dL (74-106); PHOSPHORUS 2.8 mg/dL (2.5-4.9); POTASSIUM 3.8 mmol/L (3.5-5.1); SODIUM SERUM 141 mmol/L (136-145); UREA NITROGEN, BLOOD 14 mg/dL (7-18)
[2017-05-17 08:00] VITALS: BP 123/68
[2017-05-17] MEDS: DOCUSATE SODIUM 100 MG CAPSULE PO SCH ×2 (09:41→10:22)
[2017-05-17] MEDS: cetrizine 10 MG TABLET PO SCH (09:41)
[2017-05-17] MEDS: DIVALPROEX SODIUM 125 MG CAP.SPRINK PO SCH ×3 (09:41→17:47)
[2017-05-17] MEDS: MEMANTINE HCL 5 MG TABLET PO SCH ×2 (09:41→10:22)
[2017-05-17] MEDS: FLUTICASONE PROPIONATE 16 GM BOTTLE NS SCH (09:42)
[2017-05-17] MEDS: NYSTATIN TOP POWDER 15 GM BOTTLE TP SCH ×3 (09:42→17:49)
[2017-05-17] MEDS: ASPIRIN 81 MG TAB.CHEW PO SCH (10:22)
[2017-05-17] MEDS: PANTOPRAZOLE 40 MG TABLET.DR PO SCH (10:22)
[2017-05-17] MEDS: DOXYCYCLINE HYCLATE (100 MG) 100 MG TABLET PO SCH ×2 (10:23→21:39)
[2017-05-17] MEDS: ESCITALOPRAM OXALATE (10 MG) 10 MG TABLET PO SCH (10:23)
[2017-05-17] MEDS: MULTIVITAMINS,THERAGRAN 1 UDTAB TABLET PO SCH (10:23)
[2017-05-17] MEDS: SENNOSIDES 8.6 MG TABLET PO SCH (11:49)
[2017-05-17] MEDS: BISACODYL (5 MG) 5 MG TABLET.DR PO SCH (11:49)
[2017-05-17] MEDS: Z GUARD REMEDY 2 OZ OINT TP SCH (11:55)
[2017-05-17 16:00] VITALS: BP 123/78
--- NOTE | 2017-05-17 16:00 | NUR ---
RN-CO: Patient remain unpredictable and combative to staff. Climbing out of bed. Requested for a sitter for tonight to RN seismic prospecting supervisor Mariama Merlos but seismic prospecting supervisor refused to provide.
[2017-05-17] MEDS: SIMVASTATIN 10 MG TABLET PO SCH (18:00)
[2017-05-17] MEDS: LATANOPROST EYE DROP 0.005% 2.5 ML BOTTLE EACHEYE SCH (18:00)
[2017-05-17 20:00] VITALS: BP 148/83
[2017-05-17] MEDS: LEVOFLOXACIN (500MG) 500 MG TABLET PO SCH (21:39)
[2017-05-17] MEDS: TEMAZEPAM 7.5 MG CAPSULE PO PRN (21:39)
[2017-05-17] MEDS: TAMSULOSIN 0.4 MG CAP.SR.24H PO SCH (21:39)
[2017-05-18 08:52] VITALS: BP 110/65
[2017-05-18] MEDS: SENNOSIDES 8.6 MG TABLET PO SCH (09:25)
[2017-05-18] MEDS: ASPIRIN 81 MG TAB.CHEW PO SCH (09:25)
[2017-05-18] MEDS: cetrizine 10 MG TABLET PO SCH (09:25)
[2017-05-18] MEDS: PANTOPRAZOLE 40 MG TABLET.DR PO SCH (09:25)
[2017-05-18] MEDS: BISACODYL (5 MG) 5 MG TABLET.DR PO SCH (09:25)
[2017-05-18] MEDS: DOXYCYCLINE HYCLATE (100 MG) 100 MG TABLET PO SCH ×3 (09:25→22:56)
[2017-05-18] MEDS: ESCITALOPRAM OXALATE (10 MG) 10 MG TABLET PO SCH (09:25)
[2017-05-18] MEDS: DIVALPROEX SODIUM 125 MG CAP.SPRINK PO SCH ×3 (09:26→16:30)
[2017-05-18] MEDS: DOCUSATE SODIUM 100 MG CAPSULE PO SCH ×2 (09:26→16:30)
[2017-05-18] MEDS: MULTIVITAMINS,THERAGRAN 1 UDTAB TABLET PO SCH (10:18)
[2017-05-18] MEDS: Z GUARD REMEDY 2 OZ OINT TP SCH (10:18)
[2017-05-18] MEDS: NYSTATIN TOP POWDER 15 GM BOTTLE TP SCH ×3 (10:19→17:03)
[2017-05-18] MEDS: FLUTICASONE PROPIONATE 16 GM BOTTLE NS SCH (10:20)
[2017-05-18 16:00] VITALS: BP 104/56
[2017-05-18] MEDS: SIMVASTATIN 10 MG TABLET PO SCH (17:04)
[2017-05-18] MEDS: LATANOPROST EYE DROP 0.005% 2.5 ML BOTTLE EACHEYE SCH (17:04)
[2017-05-18 20:00] VITALS: BP 143/78
[2017-05-18] MEDS: LEVOFLOXACIN (500MG) 500 MG TABLET PO SCH ×2 (20:00→20:31)
[2017-05-18] MEDS: TAMSULOSIN 0.4 MG CAP.SR.24H PO SCH ×2 (22:00→22:56)
--- NOTE | 2017-05-18 22:56 | NUR ---
RN NOTES: PATIENT EARLIER WAS VERY COMBATIVE AND UNCOOPERATIVE, REFUSING MEDICATIONS. NOW, PATIENT APPEARS MORE ACCOMMODATING, AND SCHEDULED VIBRAMYCIN AND TAMSULOSIN PO WERE TAKEN ONLY AT THIS TIME.
[2017-05-19 08:00] VITALS: BP 110/67
[2017-05-19] MEDS: DOXYCYCLINE HYCLATE (100 MG) 100 MG TABLET PO SCH ×2 (08:37→21:13)
[2017-05-19] MEDS: ESCITALOPRAM OXALATE (10 MG) 10 MG TABLET PO SCH (08:37)
[2017-05-19] MEDS: MEMANTINE HCL 5 MG TABLET PO SCH (08:37)
[2017-05-19] MEDS: ASPIRIN 81 MG TAB.CHEW PO SCH (08:38)
[2017-05-19] MEDS: SENNOSIDES 8.6 MG TABLET PO SCH (08:38)
[2017-05-19] MEDS: DIVALPROEX SODIUM 125 MG CAP.SPRINK PO SCH ×3 (08:38→18:32)
[2017-05-19] MEDS: PANTOPRAZOLE 40 MG TABLET.DR PO SCH (08:38)
[2017-05-19] MEDS: cetrizine 10 MG TABLET PO SCH (08:38)
[2017-05-19] MEDS: MULTIVITAMINS,THERAGRAN 1 UDTAB TABLET PO SCH (08:40)
[2017-05-19] MEDS: Z GUARD REMEDY 2 OZ OINT TP SCH (08:42)
[2017-05-19] MEDS: NYSTATIN TOP POWDER 15 GM BOTTLE TP SCH ×3 (08:42→17:00)
[2017-05-19] MEDS: FLUTICASONE PROPIONATE 16 GM BOTTLE NS SCH (08:43)
[2017-05-19] MEDS: DOCUSATE SODIUM 100 MG CAPSULE PO SCH ×2 (09:26→18:33)
[2017-05-19] MEDS: BISACODYL (5 MG) 5 MG TABLET.DR PO SCH (09:27)
[2017-05-19 16:00] VITALS: BP 100/64
[2017-05-19] MEDS: LORAZEPAM 0.5 MG TABLET PO PRN (18:32)
[2017-05-19] MEDS: SIMVASTATIN 10 MG TABLET PO SCH (18:32)
--- NOTE | 2017-05-19 18:32 | NUR ---
administered ativan 0.5 mg po prn for anxiety, paranoia, v/s taken bp-105/64, p-98, continued monitoring. endorsed oncoming nurse for continuation of care.
[2017-05-19] MEDS: LATANOPROST EYE DROP 0.005% 2.5 ML BOTTLE EACHEYE SCH (18:47)
[2017-05-19 20:00] VITALS: BP 125/52
--- NOTE | 2017-05-19 20:25 | NUR ---
GPS/BEAM PRESS OPERATOR; RECEIVED PT IN BED AWAKE, QUIET AND CALM. NO AGGRESSIONS NOTED. BED ON LOWER POSITION AND LOCKED FOR SAFETY. SIDE RAILS ARE UP FOR SAFETY. BOTH LOWER LEGS WITH REDNESS, SKIN TEARS. RT LOWER LEG WITH WITH DRESSING INTACT. BOTH ARMS AND HANDS WITH DISCOLORATIONS AND BRUISES. BREATHING NON LABORED. CONTINUE TO MONITOR. SITTER PRESENT IN THE ROOM.
--- NOTE | 2017-05-19 21:00 | NUR ---
GPS/PRESCHOOL TEACHER'S ASSISTANT; DUE PO MEDS GIVEN AND PT TOOK ALL OF IT WITH OUT PROBLEM.
[2017-05-19] MEDS: LEVOFLOXACIN (500MG) 500 MG TABLET PO SCH (21:12)
[2017-05-19] MEDS: TAMSULOSIN 0.4 MG CAP.SR.24H PO SCH (21:14)
--- NOTE | 2017-05-19 22:00 | NUR ---
GPS/PLATER HELPER; PT IS SLEEPING AT THIS TIME.
--- NOTE | 2017-05-20 06:00 | NUR ---
GPS/VOLTAGE INSPECTOR; PT AWAKE NOTED INCONTINENT OF URINE AND WITH LARGE BROWN SOFT BM. PT VERY COMBATIVE AND CURSING AND KICKING WHILE 2 MASH FILTER OPERATOR'S WHERE CLEANING HIM. REMEDY Z GUARD CREAM APPLIED TO REDNESS TO SACRAL AREA. HOSPITAL GOWN CHANGED. CONTINUE TO MONITOR.
--- NOTE | 2017-05-20 06:15 | NUR ---
GPS/TRAFFIC CHIEF; PT BACK TO SLEEP AT THIS TIME.
--- NOTE | 2017-05-20 06:55 | NUR ---
GPS/FATBACK TRIMMER; P IN BED AT THIS TIME SLEEPING. BREATHING NON LABORED AND EVEN. SITTER PRESENT AT ALL TIMES. CONTINUE TO MONITOR FOR SAFETY. WILL ENDORSE TO THE DAY SHIFT NURSE.
[2017-05-20 08:00] VITALS: BP 117/79
[2017-05-20] MEDS: MEMANTINE HCL 5 MG TABLET PO SCH (09:50)
[2017-05-20] MEDS: ESCITALOPRAM OXALATE (10 MG) 10 MG TABLET PO SCH (09:50)
[2017-05-20] MEDS: DOCUSATE SODIUM 100 MG CAPSULE PO SCH ×2 (09:50→17:20)
[2017-05-20] MEDS: DIVALPROEX SODIUM 125 MG CAP.SPRINK PO SCH ×3 (09:50→17:20)
[2017-05-20] MEDS: ASPIRIN 81 MG TAB.CHEW PO SCH (09:50)
[2017-05-20] MEDS: cetrizine 10 MG TABLET PO SCH (09:50)
[2017-05-20] MEDS: BISACODYL (5 MG) 5 MG TABLET.DR PO SCH (09:50)
[2017-05-20] MEDS: DOXYCYCLINE HYCLATE (100 MG) 100 MG TABLET PO SCH ×2 (09:50→20:54)
[2017-05-20] MEDS: PANTOPRAZOLE 40 MG TABLET.DR PO SCH (09:50)
[2017-05-20] MEDS: FLUTICASONE PROPIONATE 16 GM BOTTLE NS SCH (09:51)
[2017-05-20] MEDS: NYSTATIN TOP POWDER 15 GM BOTTLE TP SCH ×3 (09:53→17:20)
[2017-05-20] MEDS: Z GUARD REMEDY 2 OZ OINT TP SCH (09:53)
[2017-05-20] MEDS: SENNOSIDES 8.6 MG TABLET PO SCH (09:55)
[2017-05-20] MEDS: MULTIVITAMINS,THERAGRAN 1 UDTAB TABLET PO SCH (09:56)
[2017-05-20] MEDS: LORAZEPAM 0.5 MG TABLET PO PRN ×2 (11:26→17:26)
--- NOTE | 2017-05-20 11:26 | NUR ---
PATIENT CONFUSED, ANXIOUS,, IRRITABLE, PARANOID, ADMINISTERED ATIVAN 0.5 MG PO PRN PRESCRIBED, V/S TAKEN BP-117/79, P-70, CONTINUED MONITORING.
[2017-05-20 16:00] VITALS: BP 104/75
[2017-05-20] MEDS: LATANOPROST EYE DROP 0.005% 2.5 ML BOTTLE EACHEYE SCH (17:21)
[2017-05-20] MEDS: SIMVASTATIN 10 MG TABLET PO SCH (17:21)
--- NOTE | 2017-05-20 17:26 | NUR ---
ADMINISTERED ATIVAN 0.5 MG PO PRN FOR ANXIETY, PARANOIA, DELUSIONAL, TRYING TO SCRATCH ONE OF STAFF, V/S TAKEN BP- 104/74, P-98, CONTINUED MONITORING.
[2017-05-20 19:59] VITALS: BP 108/55
[2017-05-20] MEDS: LEVOFLOXACIN (500MG) 500 MG TABLET PO SCH (20:53)
[2017-05-20] MEDS: TAMSULOSIN 0.4 MG CAP.SR.24H PO SCH (21:04)
[2017-05-21 06:48] LABS: BASOPHILS % (AUTO) 0.3 % (0.0-2.0); EOSINOPHILS # (AUTO) 0.1 /CMM (0.0-0.7); EOSINOPHILS % (AUTO) 1.6 % (0.0-6.0); HEMATOCRIT 40 % (39-51); HEMOGLOBIN 13.6 g/dL (13.5-17.5); LYMPHOCYTES # (AUTO) 2.4 /CMM (0.8-4.8); LYMPHOCYTES % (AUTO) 25.9 % (20.0-44.0); MEAN CORPUSCULAR HEMOGLOBIN 33 PG (26.0-33.0); MEAN CORPUSCULAR HGB CONC 34 g/dl (31.0-36.0); MEAN CORPUSCULAR VOLUME 96 fL (80-96); MONOCYTES # (AUTO) 0.5 /CMM (0.1-1.30); MONOCYTES % (AUTO) 5.8 % (2.0-12.0); NEUTROPHILS # (AUTO) 6.1 /CMM (1.8-8.9); NEUTROPHILS % (AUTO) 66.4 % (43.0-81.0); PLATELET COUNT (AUTO) 248 /CMM (150-450); RDW COEFFICIENT OF VARIATION 13.3 (11.5-15.0); RED BLOOD CELL COUNT(AUTO) 4.19 MIL/uL (4.5-6.0); WHITE BLOOD COUNT (AUTO) 9.2 K/uL (4.3-11.0)
[2017-05-21 06:54] LABS: CALCIUM, SERUM 8.4 mg/dL (8.5-10.1); CARBON DIOXIDE 33 mmol/L (21-32); CHLORIDE 105 mmol/L (98-107); CREATININE 0.9 mg/dL (0.6-1.3); GLUCOSE 85 mg/dL (74-106); POTASSIUM 3.7 mmol/L (3.5-5.1); SODIUM SERUM 143 mmol/L (136-145); UREA NITROGEN, BLOOD 19 mg/dL (7-18)
[2017-05-21 08:00] VITALS: BP 116/67
[2017-05-21] MEDS: DOXYCYCLINE HYCLATE (100 MG) 100 MG TABLET PO SCH ×2 (10:18→20:40)
[2017-05-21] MEDS: DIVALPROEX SODIUM 125 MG CAP.SPRINK PO SCH ×3 (10:18→17:13)
[2017-05-21] MEDS: ESCITALOPRAM OXALATE (10 MG) 10 MG TABLET PO SCH (10:18)
[2017-05-21] MEDS: PANTOPRAZOLE 40 MG TABLET.DR PO SCH (10:19)
[2017-05-21] MEDS: SENNOSIDES 8.6 MG TABLET PO SCH (10:19)
[2017-05-21] MEDS: MEMANTINE HCL 5 MG TABLET PO SCH (10:19)
[2017-05-21] MEDS: BISACODYL (5 MG) 5 MG TABLET.DR PO SCH (10:19)
[2017-05-21] MEDS: cetrizine 10 MG TABLET PO SCH (10:19)
[2017-05-21] MEDS: MULTIVITAMINS,THERAGRAN 1 UDTAB TABLET PO SCH (10:19)
[2017-05-21] MEDS: ASPIRIN 81 MG TAB.CHEW PO SCH (10:19)
[2017-05-21] MEDS: DOCUSATE SODIUM 100 MG CAPSULE PO SCH ×2 (10:19→17:14)
[2017-05-21] MEDS: NYSTATIN TOP POWDER 15 GM BOTTLE TP SCH ×3 (10:22→17:14)
[2017-05-21] MEDS: FLUTICASONE PROPIONATE 16 GM BOTTLE NS SCH (10:22)
[2017-05-21] MEDS: Z GUARD REMEDY 2 OZ OINT TP SCH (10:22)
[2017-05-21 16:00] VITALS: BP 132/82
[2017-05-21] MEDS: LORAZEPAM 0.5 MG TABLET PO PRN (17:13)
--- NOTE | 2017-05-21 17:13 | NUR ---
administered ativan 0.5 mg po prn for anxiety, confused, paranoid, delusional, aggressive, combative, hard to follow direction, v/s taken bp- 132/82, p-78, continued monitoring.
[2017-05-21] MEDS: LATANOPROST EYE DROP 0.005% 2.5 ML BOTTLE EACHEYE SCH (17:14)
[2017-05-21] MEDS: SIMVASTATIN 10 MG TABLET PO SCH (17:14)
[2017-05-21 19:45] VITALS: BP 93/54
[2017-05-21] MEDS: LEVOFLOXACIN (500MG) 500 MG TABLET PO SCH (20:40)
[2017-05-21] MEDS: TAMSULOSIN 0.4 MG CAP.SR.24H PO SCH (21:26)
--- NOTE | 2017-05-22 02:26 | NUR ---
GPS/RN PATIENT IS CONFUSED, KEEPS GETTING OUT OF BED, STATED "SOMEONE IS TELLING ME TO GET UP." DENIES AUDITORY AND VISUAL HALLUCINATIONS, ORIENTED PATIENT THAT NOBODY IS TELLING PT TO GET OUT OF BED. PATIENT REDIRECTABLE.
[2017-05-22] MEDS: PANTOPRAZOLE 40 MG TABLET.DR PO SCH (07:30)
[2017-05-22 08:00] VITALS: BP 124/70
[2017-05-22] MEDS: DOXYCYCLINE HYCLATE (100 MG) 100 MG TABLET PO SCH ×2 (09:00→20:41)
[2017-05-22] MEDS: DIVALPROEX SODIUM 125 MG CAP.SPRINK PO SCH ×2 (09:00→13:01)
[2017-05-22] MEDS: BISACODYL (5 MG) 5 MG TABLET.DR PO SCH (09:00)
[2017-05-22] MEDS: cetrizine 10 MG TABLET PO SCH (09:00)
[2017-05-22] MEDS: MEMANTINE HCL 5 MG TABLET PO SCH (09:00)
[2017-05-22] MEDS: MULTIVITAMINS,THERAGRAN 1 UDTAB TABLET PO SCH (09:00)
[2017-05-22] MEDS: ASPIRIN 81 MG TAB.CHEW PO SCH (09:00)
[2017-05-22] MEDS: DOCUSATE SODIUM 100 MG CAPSULE PO SCH ×2 (09:24→17:38)
[2017-05-22] MEDS: ESCITALOPRAM OXALATE (10 MG) 10 MG TABLET PO SCH (09:25)
[2017-05-22] MEDS: SENNOSIDES 8.6 MG TABLET PO SCH (09:25)
[2017-05-22] MEDS: Z GUARD REMEDY 2 OZ OINT TP SCH (09:25)
[2017-05-22] MEDS: NYSTATIN TOP POWDER 15 GM BOTTLE TP SCH ×3 (09:26→17:39)
[2017-05-22] MEDS: FLUTICASONE PROPIONATE 16 GM BOTTLE NS SCH (09:27)
--- NOTE | 2017-05-22 10:43 | NUR ---
BAO informed Keyon from [facility] ([address] [facility], [place] [address] ) that pt. will be discharged there tomorrow. Keyon agrees.
[2017-05-22 16:02] VITALS: BP 131/74
[2017-05-22] MEDS: SIMVASTATIN 10 MG TABLET PO SCH (18:13)
[2017-05-22] MEDS: LATANOPROST EYE DROP 0.005% 2.5 ML BOTTLE EACHEYE SCH (18:14)
[2017-05-22 19:49] VITALS: BP 126/78
--- NOTE | 2017-05-22 20:00 | NUR ---
GPS/RN NOTES RECEIVED PATIENT IN BED, CONFUSED, NON-VERBAL, NO SOB, NO RESPIRATORY DISTRESS, REMOVING CLOTHING, BECOMES AGITATED WHEN TOUCHED EVIDENCED BY HITTING AND SPITTING. BED AT LOWEST POSITION, SIDE RAILS UP, ONE ON ONE SITTER AT THE BEDSIDE. KEPT SAFE, WILL CONTINUE TO MONITOR.
[2017-05-22] MEDS: LORAZEPAM 0.5 MG TABLET PO PRN (20:41)
[2017-05-22] MEDS: LEVOFLOXACIN (500MG) 500 MG TABLET PO SCH (20:41)
--- NOTE | 2017-05-22 20:41 | NUR ---
GPS/RN NOTES PATIENT NOT COMPLIANT WITH MEDICATION. CRUSHED MEDICATIONS GIVEN, PATIENT SPITTED OUT. ALSO GIVEN ATIVAN FOR AGITATION.
[2017-05-22] MEDS: TAMSULOSIN 0.4 MG CAP.SR.24H PO SCH (21:25)
--- NOTE | 2017-05-22 23:45 | NUR ---
GPS/RN PATIENT IS AWAKE AND QUIET, KEPT TO SELF, NON-VERBAL, CALM WHEN LEFT ALONE. STILL REMOVING CLOTHES AND SHEETS.
--- NOTE | 2017-05-23 06:48 | NUR ---
GPS/RN NOTES PATIENT IN BED, ALERT AND AWAKE, CONFUSED, NON COMPLIANT WITH MEDICATIONS, AGITATED DURING NURSING CARE, REMOVING CLOTHING, NEEDS ATTENDED, WILL CONTINUE TO MONITOR.
[2017-05-23] MEDS: PANTOPRAZOLE 40 MG TABLET.DR PO SCH (07:30)
[2017-05-23 08:00] VITALS: BP 119/76
[2017-05-23] MEDS: BISACODYL (5 MG) 5 MG TABLET.DR PO SCH (08:16)
[2017-05-23] MEDS: DOCUSATE SODIUM 100 MG CAPSULE PO SCH (08:16)
[2017-05-23] MEDS: MULTIVITAMINS,THERAGRAN 1 UDTAB TABLET PO SCH (08:16)
[2017-05-23] MEDS: ASPIRIN 81 MG TAB.CHEW PO SCH (08:16)
[2017-05-23] MEDS: DOXYCYCLINE HYCLATE (100 MG) 100 MG TABLET PO SCH (08:16)
[2017-05-23] MEDS: ESCITALOPRAM OXALATE (10 MG) 10 MG TABLET PO SCH (08:17)
[2017-05-23] MEDS: cetrizine 10 MG TABLET PO SCH (08:17)
[2017-05-23] MEDS: FLUTICASONE PROPIONATE 16 GM BOTTLE NS SCH (08:20)
[2017-05-23] MEDS: NYSTATIN TOP POWDER 15 GM BOTTLE TP SCH (08:20)
[2017-05-23] MEDS: Z GUARD REMEDY 2 OZ OINT TP SCH (08:21)
[2017-05-23] MEDS: SENNOSIDES 8.6 MG TABLET PO SCH (08:46)
[2017-05-23] MEDS: MEMANTINE HCL 5 MG TABLET PO SCH (08:46)
[2017-05-23] MEDS ORDERED: DIVALPROEX SODIUM 125 MG CAP.SPRINK PO SCH (09:00)
--- NOTE | 2017-05-23 09:45 | NUR ---
RN-CO: DR PEARL ORDERED TO DISCONTINUE HOLD AND DISCHARGE PATIENT. NOTED AND CARRIED OUT. PATIENT REMAINS CALM AND COOPERATIVE TO CARE. NO AGGRESSION NOTED. DENIED AUDITORY AND VISUAL HALLUCINATIONS, DENIED SUICIDAL AND HOMICIDAL IDEATION. REFERRAL TO PCP GIVEN (DR PEARL) TEL NO: [phone], OFFICE Address: [address] [place] [address]. MANUFACTURING TEAM MEMBER DR NIKI KAPLAN: [phone] ADD: [phone] [facility] [id number].
--- NOTE | 2017-05-23 10:17 | NUR ---
Informed dtr Hilda Mak ([phone]) of the patient's discharge today to [facility] ([address] [place] [address] ). Patient will be discharged to facility at 1pm. Dtr appreciated the information.
--- NOTE | 2017-05-23 10:41 | NUR ---
Discharge note: Pt. will discharge to [facility] ([address] [facility], [place] [address] ) via [facility] ambulance today at 12:30PM. BAO Ortega, nformed the patient's daughter, Hilda Mak ([phone]) of the patient's discharge today. Pt. is calm and cooperative today, denies suicidal/homicidal ideations. Discharge paperwork has been signed, discharge instructions will be provided to the accepting facility prior to transfer.
--- NOTE | 2017-05-23 10:48 | NUR ---
RN-CO: PATIENT WAS SEEN AND EXAMINED BY DR PRINCE, MEDICALLY CLEARED FOR DISCHARGE.
--- NOTE | 2017-05-23 11:08 | NUR ---
RN-CO: Patient refused skin reassessment. However night shift supervisor RN reported that he has mild redness on sacrococcyx area w/o opening. He has multiple scabs on bilateral brown.
[2017-05-23] MEDS: LORAZEPAM 0.5 MG TABLET PO PRN (11:26)
--- NOTE | 2017-05-23 13:00 | NUR ---
RN-CO: Patient was picked up by [facility]. With all his belongings with him, report given to [place] TITUS at [facility].
--- NOTE | 2017-05-23 13:00 | NUR ---
ASHOKCO: [facility] TEL NUMBER: [phone]
== END 2017-05-23 13:00 | DRG 885 ==
LOC: GPS 15:25
PROVIDERS: ADMIT Psychiatry & Neurology Psychiatry; ATTEND Nurse Practitioner Acute Care
DX: F29 Unspecified psychosis not due to a substance or known physiological condition (principal); G92 Toxic encephalopathy; J69.0 Pneumonitis due to inhalation of food and vomit; F03.91 Unspecified dementia, unspecified severity, with behavioral disturbance; E44.1 Mild protein-calorie malnutrition; Z68.1 Body mass index [BMI] 19.9 or less, adult; F39 Unspecified mood [affective] disorder; G89.29 Other chronic pain; H91.10 Presbycusis, unspecified ear; K57.90 Diverticulosis of intestine, part unspecified, without perforation or abscess without bleeding; K21.9 Gastro-esophageal reflux disease without esophagitis; I10 Essential (primary) hypertension; H40.9 Unspecified glaucoma; K58.9 Irritable bowel syndrome, unspecified; M19.90 Unspecified osteoarthritis, unspecified site; N40.0 Benign prostatic hyperplasia without lower urinary tract symptoms; Z86.73 Personal history of transient ischemic attack (TIA), and cerebral infarction without residual deficits; Z73.6 Limitation of activities due to disability; M48.06 Spinal stenosis, lumbar region
CPT/HCPCS: 36415; 80048-TC; 80053-TC; 83735-TC; 84100-TC; 85025-TC; 87081-TC; 97001-TC; A6402

== ENCOUNTER 2017-08-12 11:41 | Emergency (ER) | payer MEDICARE ==
[~2017-08-12] VITALS: Ht 175.3 cm; Wt 64.4 kg
[~2017-08-12 11:41] MED LIST changes: -DIVA125C5 PO; -ESCI10TA PO; -OLAN2.5T3 PO
[2017-08-12 11:49] VITALS: BP 120/68
--- NOTE | 2017-08-12 12:05 | NUR ---
CALLED [facility] FOR S TRANSPORT TRIP#[id number] ETA 10-15 MINUTES
== END 2017-08-12 13:13 | disposition home or self-care (01) ==
LOC: ER 11:44
DX: L03.011 Cellulitis of right finger (principal); I10 Essential (primary) hypertension; K21.9 Gastro-esophageal reflux disease without esophagitis; K58.9 Irritable bowel syndrome, unspecified; Z79.82 Long term (current) use of aspirin
CPT/HCPCS: 99283; A4606; Z7610

== ENCOUNTER 2018-03-20 16:49 | Inpatient (IN) | payer MEDICARE ==
[~2018-03-20] VITALS: Ht 175.3 cm; Wt 61.2 kg
[~2018-03-20 16:49] MED LIST changes: +ASPI-1169 PO; -ASPI81TA2 PO; -DOCU-170 PO; +DOCU100C36 PO; -LEVO500T15 PO; +LEVO500T2 PO; +SENN-167 PO; -SENN8.6T6 PO
--- NOTE | 2018-03-20 16:55 | NUR ---
RUPA FROM [facility] DT LOW O2 SAT. PER REPORT PT WAS SATING LOW 80S ON ROOM AIR. PATIENT IS CURRENTLY ON O2- SIMPLE MASK @6LPM. SKIN IS WARM TO TOUCH AND NON DIAPHORETIC. PATIENT IS AFEBRILE. CONNECTED PT TO TELE MONITOR. VSS
[2018-03-20 18:37] LABS: BASOPHILS # (AUTO) 0.6 /CMM (0.0-0.2); BASOPHILS % (AUTO) 3.8 % (0.0-2.0); EOSINOPHILS % (AUTO) 0.1 % (0.0-6.0); HEMATOCRIT 37 % (39-51); HEMOGLOBIN 12.9 g/dL (13.5-17.5); LYMPHOCYTES # (AUTO) 0.8 /CMM (0.8-4.8); LYMPHOCYTES % (AUTO) 4.7 % (20.0-44.0); MEAN CORPUSCULAR HGB CONC 35 g/dl (31.0-36.0); MEAN CORPUSCULAR VOLUME 94 fL (80-96); MONOCYTES # (AUTO) 0.8 /CMM (0.1-1.30); MONOCYTES % (AUTO) 4.9 % (2.0-12.0); NEUTROPHILS # (AUTO) 13.8 /CMM (1.8-8.9); NEUTROPHILS % (AUTO) 86.5 % (43.0-81.0); PLATELET COUNT (AUTO) 280 /CMM (150-450); RDW COEFFICIENT OF VARIATION 13.2 (11.5-15.0); RED BLOOD CELL COUNT(AUTO) 3.97 MIL/uL (4.5-6.0)
[2018-03-20 18:52] LABS: INR 0.99 (0.85-1.15)
[2018-03-20 19:02] LABS: CALCIUM, SERUM 8.6 mg/dL (8.5-10.1); CARBON DIOXIDE 34 mmol/L (21-32); CHLORIDE 105 mmol/L (98-107); CREATININE 0.9 mg/dL (0.6-1.3); GLUCOSE 117 mg/dL (74-106); POTASSIUM 3.9 mmol/L (3.5-5.1); SODIUM SERUM 145 mmol/L (136-145); TROPONIN I < 0.017 ng/mL (0.00-0.056); UREA NITROGEN, BLOOD 26 mg/dL (7-18)
[2018-03-20 19:06] LABS: APPEARANCE,URINE Cloudy (CLEAR); BILIRUBIN,URINE Negative (NEGATIVE); BLOOD, URINE Trace-lysed Ery/uL (NEGATIVE); COLOR,URINE Yellow (YELLOW); KETONES,URINE Trace (NEGATIVE); LEUKOCYTE ESTERASE ,URINE Small (NEGATIVE); NITRITE, URINE Negative (NEGATIVE); PH,URINE 7.5 (5.0-8.0); PROTEIN,URINE >=300 mg/dl (NEGATIVE); UGLUCOSE Negative (NEGATIVE)
[2018-03-20 19:21] LABS: BACTERIA,URINE Many /HPF (None Seen); MUCUS,URINE Few /LPF (None Seen); SQUAMOUS EPITHELIAL CELL,UR Few /HPF (None Seen); URINE AMORPHOUS URATE Few /HPF (None Seen)
--- NOTE | 2018-03-20 19:55 | NUR ---
CALLED [facility] FOR PANEL CALL AND DR RESENDIZ WAS PAGED.
[2018-03-20] MEDS ORDERED: IV NS 0.9% 1,000 ML BAG IV ONE (20:00)
--- NOTE | 2018-03-20 20:05 | NUR ---
CALLED NURSING GYMNASTICS COACH AND REQUESTED A DOLORES BED FOR THIS PT.
--- NOTE | 2018-03-20 20:07 | NUR ---
PT IS ASSIGNED TO [facility]#: [id number], PT IS DIAGNOSED WITH ALTERED MENTAL STATUS, AND DR ROMERO IS THE ACCEPTING MD.
[2018-03-20] MEDS ORDERED: CEFTRIAXONE 1GM BAG (ER ONLY) 1 GM/50 ML PIGGYBACK IV ONE (20:30)
[2018-03-20] MEDS ORDERED: HYDROCODONE/APAP 5/325MG 1 EACH TABLET PO PRN (20:30)
[2018-03-20] MEDS ORDERED: LOPERAMIDE HCL (2 MG CAP) 2 MG CAPSULE PO PRN (20:30)
[2018-03-20] MEDS ORDERED: ZOLPIDEM TARTRATE 5 MG TABLET PO PRN (20:30)
[2018-03-20] MEDS ORDERED: MAG HYDROX/AL HYDROX/SIMETH 30 ML UDC PO PRN (20:30)
[2018-03-20] MEDS ORDERED: ONDANSETRON HCL/PF 4 MG/2 ML VIAL IVP PRN (20:30)
[2018-03-20] MEDS ORDERED: MAGNESIUM HYDROXIDE 30 ML UDC PO PRN (20:30)
[2018-03-20] MEDS ORDERED: ACETAMINOPHEN 325 MG TABLET PO PRN (20:30)
[2018-03-20] MEDS ORDERED: CEFTRIAXONE 1GM BAG (ER ONLY) 50 ML IV ONE (20:40)
--- NOTE | 2018-03-20 20:48 | NUR ---
REPORT GIVEN TO TACHO HOUSE FOR ASHLYN
[2018-03-20 21:00] VITALS: BP 104/69
[2018-03-20] MEDS: BISACODYL (5 MG) 5 MG TABLET.DR PO SCH (21:00)
--- NOTE | 2018-03-20 21:20 | NUR ---
received pt from ER, alert, follows simple, commands, SR, on room air, sat well, regular diet, diaper on, one BM, 1 L NS given in ER, v/s stable, no pain, talked to daughter (DPOA) confirmed his code status DNR/DNI, pt cleaned, changed, wound care done, repositioned.
[2018-03-20] MEDS: TAMSULOSIN 0.4 MG CAP.SR.24H PO SCH (22:00)
[2018-03-20] MEDS: ENOXAPARIN SODIUM 30 MG/0.3 ML DISP.SYRIN SQ SCH (22:22)
[2018-03-20] MEDS: IV NS 0.9% 1,000 ML IV PRN (23:23)
[2018-03-21] VITALS: BP 92/53
--- NOTE | 2018-03-21 | NUR ---
pt is resting in the bed, alert, follows simple commands, NPO, v/s stable, no pain, pt turned and repositioned q2hrs.
[2018-03-21 04:00] VITALS: BP 113/64
--- NOTE | 2018-03-21 04:14 | NUR ---
pt is resting in the bed, no acute distress overnight, v/s stable, no pain, pt cleaned, changed and repositioned q2hrs.
[2018-03-21 06:44] LABS: BASOPHILS % (AUTO) 0.2 % (0.0-2.0); EOSINOPHILS % (AUTO) 0.1 % (0.0-6.0); HEMATOCRIT 34 % (39-51); HEMOGLOBIN 11.8 g/dL (13.5-17.5); LYMPHOCYTES # (AUTO) 2.5 /CMM (0.8-4.8); LYMPHOCYTES % (AUTO) 12.5 % (20.0-44.0); MEAN CORPUSCULAR HGB CONC 34 g/dl (31.0-36.0); MEAN CORPUSCULAR VOLUME 95 fL (80-96); MONOCYTES % (AUTO) 5.2 % (2.0-12.0); NEUTROPHILS # (AUTO) 16.2 /CMM (1.8-8.9); PLATELET COUNT (AUTO) 206 /CMM (150-450); RDW COEFFICIENT OF VARIATION 13.9 (11.5-15.0); RED BLOOD CELL COUNT(AUTO) 3.62 MIL/uL (4.5-6.0); WHITE BLOOD COUNT (AUTO) 19.8 K/uL (4.3-11.0)
--- NOTE | 2018-03-21 07:12 | NUR ---
RN DOLORES OPENING NOTES RECEIVED PT IN BED, ASLEEP, BREATHING EVEN AND UNLABORED, AROUSABLE BY NAME AND LIGHT TOUCH, NO C/O PAIN, ON TELE MONITOR WITH SR, WITH ONGOING IVF OF NS AT 75 ML/HR ON RIGHT WRIST, PATENT AND INTACT, BED IN LOW AND LOCKED POSITION, FALL AND SAFETY PRECAUTION OBSERVED, PT IS ON NPO PER NIGHT NURSE, ASPIRATION PRECAUTION OBSERVED, WILL FOLLOW UP WITH MD, WILL KEEP MONITORING
[2018-03-21 07:20] LABS: CALCIUM, SERUM 8.6 mg/dL (8.5-10.1); CARBON DIOXIDE 33 mmol/L (21-32); CHLORIDE 109 mmol/L (98-107); CREATININE 0.7 mg/dL (0.6-1.3); GLUCOSE 95 mg/dL (74-106); MAGNESIUM 2.1 mg/dL (1.8-2.4); PHOSPHORUS 2.9 mg/dL (2.5-4.9); POTASSIUM 3.9 mmol/L (3.5-5.1); SODIUM SERUM 147 mmol/L (136-145); UREA NITROGEN, BLOOD 26 mg/dL (7-18)
[2018-03-21] MEDS: PANTOPRAZOLE 40 MG TABLET.DR PO SCH (07:30)
[2018-03-21 08:00] VITALS: BP 128/64
[2018-03-21] MEDS: MEMANTINE HCL 5 MG TABLET PO SCH (09:00)
[2018-03-21] MEDS: SENNOSIDES 8.6 MG TABLET PO SCH (09:00)
[2018-03-21] MEDS: DOCUSATE SODIUM 100 MG CAPSULE PO SCH ×2 (09:00→17:09)
[2018-03-21] MEDS: ASPIRIN 81 MG TAB.CHEW PO SCH (09:00)
[2018-03-21] MEDS: BISACODYL (5 MG) 5 MG TABLET.DR PO SCH ×2 (09:00→20:43)
[2018-03-21] MEDS: MULTIVITAMINS,THERAGRAN 1 UDTAB TABLET PO SCH (09:00)
[2018-03-21] MEDS: FLUTICASONE PROPIONATE 16 GM BOTTLE NS SCH (09:40)
[2018-03-21] MEDS: NYSTATIN TOP POWDER 15 GM BOTTLE TP SCH ×3 (09:40→17:13)
--- NOTE | 2018-03-21 10:26 | NUR ---
RN NOTES: Pt seen & examined by Dr. Breaux, updated about pt status. May order pureed diet & swallow evaluation. MD made aware about condom catheter.
--- NOTE | 2018-03-21 11:00 | NUR ---
RN NOTES: Pt seen & evaluated by speech therapist bella Nicholson done w/ recommendation to upgrade diet to soft.
[2018-03-21] MEDS: IV NS 0.9% 1,000 ML IV PRN (12:01)
--- NOTE | 2018-03-21 15:05 | NUR ---
TACHO BLACKU NOTES SEEN AND EXAMINED BY DR. LUTZ, WOUND DOCTOR AND MADE ORDER TO OBTAIN CONSENT FOR WOUND DEBRIDEMENT ON RIGHT HIP SCHEDULED ON SUNDAY Addendum: 03/21/18 at 1600 by CANDY ROJAS RN Addendum: Secured telephone consent for Wound Debridement of the R Hip (sched on 03/25/18) c/o Hilda Arteaga (dtr). ELSI Robin made aware that Hilda Arteaga (dtr) wanted to talk to him over the phone re: DCP. Contact info provided to ELSI.
[2018-03-21 16:00] VITALS: BP 119/62
--- NOTE | 2018-03-21 16:50 | NUR ---
RN NOTES: Called Dr. Breaux re: current status if pt still DOLORES/MS. Per christiano ROSA to transfer pt MS. ROSA also informed re: dtr shobha Arteaga concerned about psych issues and if pt may be referred to josé miguel ROSA for consult. Per MD alvarado for psych consult w/ Dr. Gómez. Dr. Breaux also said to keep pt on current IVF NS x 75 cc/hr. Shobha Arteaga (dtr) informed about current orders from josé miguel ROSA. Pt's dtr was also able to talk to ELSI Robin over the phone re: DCP.
[2018-03-21] MEDS: LORAZEPAM 0.5 MG TABLET PO SCH (17:09)
[2018-03-21] MEDS: SIMVASTATIN 10 MG TABLET PO SCH (17:10)
[2018-03-21] MEDS: OLANZAPINE 2.5 MG TABLET PO SCH ×2 (17:10→20:43)
[2018-03-21] MEDS: LATANOPROST EYE DROP 0.005% 2.5 ML BOTTLE EACHEYE SCH (18:00)
--- NOTE | 2018-03-21 19:00 | NUR ---
RN MS CLOSING NOTES PT IN BED, BREATHING EVEN AND UNLABORED, NOTED EPISODE OF AGITATION AEB BEING AGGRESSIVE WHEN PROVIDING INCONTINENT CARE, NO C/O PAIN,STILL WITH ONGOING IVF OF NS AT 75 ML/HR ON RIGHT WRIST, KEPT PATENT AND INTACT, BED IN LOW AND LOCKED POSITION, FALL AND SAFETY PRECAUTION OBSERVED AT ALL TIMES, ASPIRATION PRECAUTION OBSERVED, ENDORSED TO PEDIGREE TRACER NURSE
--- NOTE | 2018-03-21 19:30 | NUR ---
STREET LIGHT WIRER OPENING NOTES RECEIVED REPORT FROM CANDY Beckham RN & TAMARA RN. PATIENT A/A/O X1-2 W/ SOME CONFUSION. UNABLE TO MAKE SPECIFIC NEEDS KNOWN BUT ABLE TO STATE PAIN. BREATHING EVEN & UNLABORED, TOLERATING ROOM AIR. PULSES PRESENT & BOUNDING. NO RESPIRATORY OR CARDIAC DISTRESS NOTED. RIGHT WRIST IV #18 INTACT & PATENT W/ DRESSING CDI & IVF NS INFUSING WELL @ 75 ML/HR. PATIENT ON BEDREST @ THIS TIME W/ SAFETY MEASURES IN PLACE. DENIES ANY PAIN OR DISCOMFORT @ THIS TIME. WILL CONTINUE TO MONITOR.
[2018-03-21 20:00] VITALS: BP 140/61
[2018-03-21] MEDS: CEFTRIAXONE 1 G in IV NS 0.9% 50 ML IV SCH (20:42)
[2018-03-21] MEDS: DIVALPROEX SODIUM 125 MG CAP.SPRINK PO SCH (20:43)
[2018-03-21] MEDS: ENOXAPARIN SODIUM 30 MG/0.3 ML DISP.SYRIN SQ SCH (20:43)
[2018-03-21] MEDS: TAMSULOSIN 0.4 MG CAP.SR.24H PO SCH (21:00)
[2018-03-22] MEDS: IV NS 0.9% 1,000 ML IV PRN (03:54)
[2018-03-22 04:00] VITALS: BP_SYST 136; BP_SYST 154; BP_DIAS 76; BP_DIAS 77
--- NOTE | 2018-03-22 07:50 | NUR ---
RN NOTE RECEIVED PATIENT ALERT AND ORIENTED X2 WITH EPISODES OF CONFUSIONS. HE IS ABLE TO VERBALIZE NEEDS KNOWN. BREATHING EVEN AND UNLABORED WITH NO DISTRESS NOTED. RIGHT WRIST IV SITE INTACT AND PATENT. PATIENT ON BEDREST AND SAFETY MEASURES IN PLACE. BED LOCKED AND LOW POSITION. PLACED CALL LIGHT WITHIN REACH. WILL CONTINUE TO MONITOR.
[2018-03-22 08:00] VITALS: BP 144/73
[2018-03-22] MEDS: SENNOSIDES 8.6 MG TABLET PO SCH (08:15)
[2018-03-22] MEDS: MULTIVITAMINS,THERAGRAN 1 UDTAB TABLET PO SCH (08:15)
[2018-03-22] MEDS: DIVALPROEX SODIUM 125 MG CAP.SPRINK PO SCH ×2 (08:15→21:34)
[2018-03-22] MEDS: MEMANTINE HCL 5 MG TABLET PO SCH (08:15)
[2018-03-22] MEDS: DOCUSATE SODIUM 100 MG CAPSULE PO SCH ×2 (08:15→17:16)
[2018-03-22] MEDS: ASPIRIN 81 MG TAB.CHEW PO SCH (08:15)
[2018-03-22] MEDS: OLANZAPINE 2.5 MG TABLET PO SCH ×4 (08:15→21:33)
[2018-03-22] MEDS: LORAZEPAM 0.5 MG TABLET PO SCH ×2 (08:15→17:16)
[2018-03-22] MEDS: ESCITALOPRAM OXALATE (10 MG) 10 MG TABLET PO SCH (08:15)
[2018-03-22] MEDS: PANTOPRAZOLE 40 MG TABLET.DR PO SCH (08:15)
[2018-03-22] MEDS: BISACODYL (5 MG) 5 MG TABLET.DR PO SCH ×2 (08:15→21:33)
[2018-03-22] MEDS ORDERED: HYDROGEL DRESSING 90 GM TUBE TP PRN (08:30)
[2018-03-22] MEDS: FLUTICASONE PROPIONATE 16 GM BOTTLE NS SCH (09:00)
[2018-03-22] MEDS: HYDROGEL DRESSING 90 GM TUBE TP SCH (09:59)
[2018-03-22] MEDS: NYSTATIN TOP POWDER 15 GM BOTTLE TP SCH ×3 (10:00→17:21)
--- NOTE | 2018-03-22 13:59 | NUR ---
RN NOTE CLARIFIED ORDER FOR IVF WITH DR BAINS D/Alvin KATZ AND START WITH 1/2 NS AT 75ML/HR. CARRIED OUT AND NOTED
[2018-03-22] MEDS: IV 1/2NS 1000 ML 1,000 ML IV PRN (14:01)
[2018-03-22 14:03] LABS: BASOPHILS % (AUTO) 0.3 % (0.0-2.0); EOSINOPHILS % (AUTO) 0.4 % (0.0-6.0); HEMATOCRIT 39 % (39-51); HEMOGLOBIN 13.4 g/dL (13.5-17.5); LYMPHOCYTES # (AUTO) 1.4 /CMM (0.8-4.8); MEAN CORPUSCULAR HGB CONC 34 g/dl (31.0-36.0); MEAN CORPUSCULAR VOLUME 95 fL (80-96); MONOCYTES # (AUTO) 0.5 /CMM (0.1-1.30); MONOCYTES % (AUTO) 5.4 % (2.0-12.0); NEUTROPHILS # (AUTO) 7.6 /CMM (1.8-8.9); NEUTROPHILS % (AUTO) 78.9 % (43.0-81.0); PLATELET COUNT (AUTO) 220 /CMM (150-450); RDW COEFFICIENT OF VARIATION 13.6 (11.5-15.0); RED BLOOD CELL COUNT(AUTO) 4.14 MIL/uL (4.5-6.0); WHITE BLOOD COUNT (AUTO) 9.6 K/uL (4.3-11.0)
[2018-03-22 14:28] LABS: CALCIUM, SERUM 9.1 mg/dL (8.5-10.1); CARBON DIOXIDE 33 mmol/L (21-32); CHLORIDE 106 mmol/L (98-107); CREATININE 0.6 mg/dL (0.6-1.3); GLUCOSE 95 mg/dL (74-106); MAGNESIUM 2.2 mg/dL (1.8-2.4); SODIUM SERUM 143 mmol/L (136-145); UREA NITROGEN, BLOOD 10 mg/dL (7-18)
[2018-03-22 16:00] VITALS: BP 136/76
[2018-03-22] MEDS: SIMVASTATIN 10 MG TABLET PO SCH (17:16)
[2018-03-22] MEDS: LATANOPROST EYE DROP 0.005% 2.5 ML BOTTLE EACHEYE SCH (18:02)
--- NOTE | 2018-03-22 19:28 | NUR ---
RN NOTE PATIENT REMAINED STABLE THROUGHOUT SHIFT WITH NO ACUTE DISTRESS. WILL ENDORSE TO NEXT SHIFT TO CONTINUE CONTINUITY OF CARE.
[2018-03-22 20:00] VITALS: BP 150/80
[2018-03-22] MEDS: CEFTRIAXONE 1 G in IV NS 0.9% 50 ML IV SCH (21:34)
[2018-03-22] MEDS: ENOXAPARIN SODIUM 30 MG/0.3 ML DISP.SYRIN SQ SCH (21:36)
[2018-03-22] MEDS: TAMSULOSIN 0.4 MG CAP.SR.24H PO SCH (22:31)
[2018-03-23 04:00] VITALS: BP 134/63
[2018-03-23] MEDS: Z GUARD REMEDY 2 OZ OINT TP PRN (04:35)
[2018-03-23] MEDS: IV 1/2NS 1000 ML 1,000 ML IV PRN ×2 (04:40→18:48)
[2018-03-23 06:50] LABS: BASOPHILS % (AUTO) 0.3 % (0.0-2.0); EOSINOPHILS % (AUTO) 0.1 % (0.0-6.0); HEMATOCRIT 36 % (39-51); HEMOGLOBIN 12.3 g/dL (13.5-17.5); LYMPHOCYTES # (AUTO) 1.4 /CMM (0.8-4.8); MEAN CORPUSCULAR HGB CONC 35 g/dl (31.0-36.0); MEAN CORPUSCULAR VOLUME 95 fL (80-96); MONOCYTES # (AUTO) 0.5 /CMM (0.1-1.30); MONOCYTES % (AUTO) 4.1 % (2.0-12.0); NEUTROPHILS # (AUTO) 10.5 /CMM (1.8-8.9); NEUTROPHILS % (AUTO) 84.5 % (43.0-81.0); PLATELET COUNT (AUTO) 241 /CMM (150-450); RDW COEFFICIENT OF VARIATION 13.4 (11.5-15.0); RED BLOOD CELL COUNT(AUTO) 3.76 MIL/uL (4.5-6.0); WHITE BLOOD COUNT (AUTO) 12.4 K/uL (4.3-11.0)
[2018-03-23 07:08] LABS: CALCIUM, SERUM 8.5 mg/dL (8.5-10.1); CARBON DIOXIDE 32 mmol/L (21-32); CHLORIDE 106 mmol/L (98-107); CREATININE 0.6 mg/dL (0.6-1.3); GLUCOSE 123 mg/dL (74-106); PHOSPHORUS 3.2 mg/dL (2.5-4.9); SODIUM SERUM 143 mmol/L (136-145); UREA NITROGEN, BLOOD 14 mg/dL (7-18)
[2018-03-23 07:24] LABS: POTASSIUM 2.8 mmol/L (3.5-5.1)
--- NOTE | 2018-03-23 07:46 | NUR ---
MS RN OPENING NOTES RECEIVED PATIENT IN STABLE CONDITION. IN NO APPARENT DISTRESS. BEDSIDE RAILS ARE UPX2. BED IS LOCKED AND LOWERED. IV LINE IS INTACT AND PATENT. CALL LIGHT IS WITHIN REACH. WILL CONTINUE TO MONITOR.
[2018-03-23] MEDS: LORAZEPAM 0.5 MG TABLET PO SCH ×2 (09:00→17:00)
[2018-03-23] MEDS: SENNOSIDES 8.6 MG TABLET PO SCH (09:00)
[2018-03-23] MEDS: OLANZAPINE 2.5 MG TABLET PO SCH ×4 (09:00→21:48)
[2018-03-23] MEDS: DOCUSATE SODIUM 100 MG CAPSULE PO SCH ×2 (09:00→17:00)
[2018-03-23] MEDS: ASPIRIN 81 MG TAB.CHEW PO SCH (09:19)
[2018-03-23] MEDS: PANTOPRAZOLE 40 MG TABLET.DR PO SCH (09:19)
[2018-03-23] MEDS: MEMANTINE HCL 5 MG TABLET PO SCH (09:19)
[2018-03-23] MEDS: BISACODYL (5 MG) 5 MG TABLET.DR PO SCH ×2 (09:20→21:48)
[2018-03-23] MEDS: MULTIVITAMINS,THERAGRAN 1 UDTAB TABLET PO SCH (09:20)
[2018-03-23] MEDS: FLUTICASONE PROPIONATE 16 GM BOTTLE NS SCH (09:20)
[2018-03-23] MEDS: ESCITALOPRAM OXALATE (10 MG) 10 MG TABLET PO SCH (09:21)
[2018-03-23] MEDS: DIVALPROEX SODIUM 125 MG CAP.SPRINK PO SCH ×2 (09:21→21:48)
[2018-03-23] MEDS: NYSTATIN TOP POWDER 15 GM BOTTLE TP SCH ×3 (09:22→17:21)
[2018-03-23] MEDS: HYDROGEL DRESSING 90 GM TUBE TP SCH (09:22)
[2018-03-23] MEDS: POTASSIUM CHLORIDE 20 MEQ TAB.PRT.SR PO SCH ×3 (09:31→12:40)
[2018-03-23 16:00] VITALS: BP 116/62
[2018-03-23] MEDS: LATANOPROST EYE DROP 0.005% 2.5 ML BOTTLE EACHEYE SCH (17:22)
[2018-03-23] MEDS: SIMVASTATIN 10 MG TABLET PO SCH (17:24)
--- NOTE | 2018-03-23 18:55 | NUR ---
MS RN CLOSING NOTES PATIENT IS RESTING IN STABLE CONDITION. IN NO APPARENT DISTRESS. BEDSIDE RAILS ARE UPX2. BED IS LOCKED AND LOWERED. CALL LIGHT IS WITHIN REACH. IV LINE IS INTACT AND PATENT. ALL NEEDS WERE MET. WILL ENDORSE CARE TO ROOM SERVICE RUNNER NURSE FOR ASHLYN.
[2018-03-23 20:00] VITALS: BP 122/65
--- NOTE | 2018-03-23 21:10 | NUR ---
DOLORES RN NOTES RECEIVED BEDSIDE REPORT FROM AM NURSE. PATIENT A/A/O X1-2 W/ SOME CONFUSION. UNABLE TO MAKE SPECIFIC NEEDS KNOWN BUT ABLE TO STATE PAIN. BREATHING EVEN & UNLABORED, TOLERATING ROOM AIR. NO RESPIRATORY OR CARDIAC DISTRESS NOTED AT THIS TIME. RIGHT WRIST IV #18 INTACT & PATENT W/ DRESSING CDI & IVF 0.45 NS INFUSING WELL @ 75 ML/HR. PATIENT ON BEDREST @ THIS TIME W/ SAFETY MEASURES IN PLACE. DENIES ANY PAIN OR DISCOMFORT @ THIS TIME. WILL CONTINUE TO MONITOR.
[2018-03-23] MEDS: CEFTRIAXONE 1 G in IV NS 0.9% 50 ML IV SCH (21:47)
[2018-03-23] MEDS: TAMSULOSIN 0.4 MG CAP.SR.24H PO SCH (21:48)
[2018-03-23] MEDS: ENOXAPARIN SODIUM 30 MG/0.3 ML DISP.SYRIN SQ SCH (21:49)
[2018-03-24 04:00] VITALS: BP_SYST 116; BP_SYST 117; BP_DIAS 65; BP_DIAS 70
[2018-03-24] MEDS: HYDROGEL DRESSING 90 GM TUBE TP SCH (06:11)
[2018-03-24] MEDS: Z GUARD REMEDY 2 OZ OINT TP PRN (06:11)
[2018-03-24 07:01] LABS: CALCIUM, SERUM 8.3 mg/dL (8.5-10.1); CARBON DIOXIDE 33 mmol/L (21-32); CHLORIDE 105 mmol/L (98-107); CREATININE 0.5 mg/dL (0.6-1.3); GLUCOSE 88 mg/dL (74-106); MAGNESIUM 1.9 mg/dL (1.8-2.4); POTASSIUM 3.3 mmol/L (3.5-5.1); SODIUM SERUM 142 mmol/L (136-145); UREA NITROGEN, BLOOD 12 mg/dL (7-18)
--- NOTE | 2018-03-24 07:30 | NUR ---
MS RN NOTE: RECEIVED PATIENT IN BED, ASLEEP AND CALM AT THIS TIME WITH NO AGGRESSION NOTED. RESPIRATION IS EVEN AND UNLABORED SATURATING 97% IN ROOM AIR. PER NURSE REPORT, DR. ADAMS WANTED TO LIMIT THE SEDATING MEDICATIONS OF THE PATIENT, BUT NAMENDA IS OK TO GIVE. AFEBRILE. (R) FOREARM IV PERIPHERAL LINE NOTED PATENT AND INTACT WHILE INFUSING 0.45% NS @75ML/HR. HOB ELEVATED. BED IN LOWEST POSITION. BED ALARMED AND LOCKED AT ALL TIMES. CALL LIGHT WITHIN REACH AND NEEDS ANTICIPATED.
[2018-03-24 08:00] VITALS: BP 159/75
[2018-03-24] MEDS: PANTOPRAZOLE 40 MG TABLET.DR PO SCH (08:21)
[2018-03-24] MEDS: NYSTATIN TOP POWDER 15 GM BOTTLE TP SCH ×3 (08:35→16:28)
[2018-03-24] MEDS: DOCUSATE SODIUM 100 MG CAPSULE PO SCH ×2 (08:36→16:27)
[2018-03-24] MEDS: SENNOSIDES 8.6 MG TABLET PO SCH (08:36)
[2018-03-24] MEDS: DIVALPROEX SODIUM 125 MG CAP.SPRINK PO SCH ×2 (08:36→22:38)
[2018-03-24] MEDS: FLUTICASONE PROPIONATE 16 GM BOTTLE NS SCH (08:36)
[2018-03-24] MEDS: ESCITALOPRAM OXALATE (10 MG) 10 MG TABLET PO SCH (08:37)
[2018-03-24] MEDS: ASPIRIN 81 MG TAB.CHEW PO SCH (08:37)
[2018-03-24] MEDS: BISACODYL (5 MG) 5 MG TABLET.DR PO SCH ×2 (08:37→22:38)
[2018-03-24] MEDS: MEMANTINE HCL 5 MG TABLET PO SCH (08:37)
[2018-03-24] MEDS: OLANZAPINE 2.5 MG TABLET PO SCH ×4 (08:37→22:38)
[2018-03-24] MEDS: MULTIVITAMINS,THERAGRAN 1 UDTAB TABLET PO SCH (08:37)
[2018-03-24] MEDS: LORAZEPAM 0.5 MG TABLET PO SCH ×3 (08:38→17:20)
[2018-03-24] MEDS ORDERED: POTASSIUM CHLORIDE 20 MEQ TAB.PRT.SR PO SCH ×2 (10:00→12:00)
[2018-03-24] MEDS: IV 1/2NS 1000 ML 1,000 ML IV PRN (11:27)
--- NOTE | 2018-03-24 13:04 | NUR ---
MS RN NOTE: CALLED AND CLARIFIED WITH THE PHARMACY RE: THE PROTOCOL FOR THE POTASSIUM REPLACEMENT. PER PHARMACIST, THE POTASSIUM REPLACEMENT WAS ORDERED POTASSIUM CHLORIDE 20MEQ PO X1 ONLY. POTASSIUM WAS ALREADY GIVEN AT 11:38AM.
[2018-03-24 16:00] VITALS: BP_SYST 140; BP_SYST 161; BP_DIAS 65; BP_DIAS 74
[2018-03-24] MEDS: SIMVASTATIN 10 MG TABLET PO SCH (17:19)
[2018-03-24] MEDS: LATANOPROST EYE DROP 0.005% 2.5 ML BOTTLE EACHEYE SCH (17:19)
--- NOTE | 2018-03-24 17:20 | NUR ---
MS RN NOTE: UPON RECHECKING THE PATIENT'S DIAPER, HE STARTED BEING AGGRESSIVE AND WAS GRABBING ON THE ELIGIBILITY EXAMINER AND RN ASSIGNED TO HIM. HE WAS INFORMED THAT THE NURSES ARE GOING TO CHANGE HIS DIAPER. DESPITE EXPLANATION TO THE PATIENT, HE DOES NOT CALM DOWN. ATIVAN 0.5 MG PO WAS GIVEN TO HELP THE PATIENT RELAX. DIAPER CHANGE WAS DONE AND PERICARE WAS RENDERED TO THE PATIENT.
--- NOTE | 2018-03-24 19:54 | NUR ---
MS RN NOTE: PATIENT REMAINED ON STABLE CONDITION HOB ELEVATED AND IV FLUID HYDRATION INFUSING MD ORDER. REPORT GIVEN TO PM SHIFT NURSE FOR CONTINUITY OF CARE.
--- NOTE | 2018-03-24 20:00 | NUR ---
RN INITIAL NOTES RECEIVED PATIENT IN STABLE CONDITION. IN NO APPARENT DISTRESS. BEDSIDE RAILS ARE UPX2. BED IS LOCKED AND LOWERED. IV LINE IS INTACT AND PATENT. CALL LIGHT IS WITHIN REACH. WILL CONTINUE TO MONITOR.
[2018-03-24 21:00] VITALS: BP 130/67
[2018-03-24] MEDS: CEFTRIAXONE 1 G in IV NS 0.9% 50 ML IV SCH (22:37)
[2018-03-24] MEDS: ENOXAPARIN SODIUM 30 MG/0.3 ML DISP.SYRIN SQ SCH (22:37)
[2018-03-24] MEDS: TAMSULOSIN 0.4 MG CAP.SR.24H PO SCH (22:38)
[2018-03-25 05:00] VITALS: BP 116/65
[2018-03-25] MEDS: IV 1/2NS 1000 ML 1,000 ML IV PRN ×2 (06:12→21:03)
--- NOTE | 2018-03-25 07:30 | NUR ---
MS RN NOTE: RECEIVED PATIENT IN BED, ASLEEP, BUT AROUSABLE WITH TACTILE STIMULATION AND WHEN CALLING HIS NAME. RESPIRATION IS EVEN AND UNLABORED. SATURATING 98% IN ROOM AIR. NO FACIAL GRIMACING NOTED. HOB ELEVATED. BED IN LOWEST POSITION. BED ALARMED AND LOCKED AT ALL TIMES. CALL LIGHT WITHIN REACH. NEEDS ANTICIPATED.
--- NOTE | 2018-03-25 07:59 | NUR ---
MS RN NOTE: RECEIVED A PHONE CALL FROM THE PATIENT'S DAUGHTER/DPOA, HEMAL CARTER AND WAS ASKING RE: THE PATIENT'S CONDITION UPDATE. HEMAL BECKWITH WAS MADE AWARE THAT THE PATIENT HAS BEEN QUIET, BUT PER PM SHIFT NURSE THE PATIENT WAS NOTED AGGRESSIVE AND COMBATIVE TOWARDS THE NURSES DURING CARE. SHE WAS INFORMED THAT THE PATIENT WAS SEEN BY THE NEUROLOGIST, DR. ADAMS AND ON HER NOTES SHE WANTED TO LIMIT THE SEDATING MEDICATIONS FOR THE PATIENT. HEMAL BECKWITH CLEARLY STATED "PLEASE TELL THE DOCTOR TO GIVE ME A CALL RE: MY DAD'S CONDITION. HE IS A DANGER TO HIMSELF/OTHERS IF HE DOES NOT TAKE HIS REGULAR PSYCHOTROPIC MEDICATIONS AND THAT INCLUDES HIS ATIVAN. IT HELPED HIM CALM DOWN." DAUGHTER WAS INFORMED THAT IF DR. ADAMS COMES BY TODAY SHE WILL BE INFORMED ABOUT THE DAUGHTER'S REQUEST AND WILL RELAY THE MESSAGE TO MD. DAUGHTER WAS THANKFUL AFTER THE PHONE CALL.
[2018-03-25 08:00] VITALS: BP 128/68
[2018-03-25] MEDS: OLANZAPINE 2.5 MG TABLET PO SCH ×4 (08:11→21:08)
[2018-03-25] MEDS: PANTOPRAZOLE 40 MG TABLET.DR PO SCH (08:11)
[2018-03-25] MEDS: MEMANTINE HCL 5 MG TABLET PO SCH (08:11)
[2018-03-25] MEDS: DOCUSATE SODIUM 100 MG CAPSULE PO SCH ×2 (08:11→17:22)
[2018-03-25] MEDS: MULTIVITAMINS,THERAGRAN 1 UDTAB TABLET PO SCH (08:11)
[2018-03-25] MEDS: DIVALPROEX SODIUM 125 MG CAP.SPRINK PO SCH ×2 (08:11→21:08)
[2018-03-25] MEDS: ESCITALOPRAM OXALATE (10 MG) 10 MG TABLET PO SCH (08:11)
[2018-03-25] MEDS: SENNOSIDES 8.6 MG TABLET PO SCH (08:11)
[2018-03-25] MEDS: LORAZEPAM 0.5 MG TABLET PO SCH ×2 (08:12→17:22)
[2018-03-25] MEDS: BISACODYL (5 MG) 5 MG TABLET.DR PO SCH ×2 (08:12→21:08)
[2018-03-25] MEDS: ASPIRIN 81 MG TAB.CHEW PO SCH (08:12)
[2018-03-25] MEDS: NYSTATIN TOP POWDER 15 GM BOTTLE TP SCH ×3 (08:13→17:23)
[2018-03-25] MEDS: HYDROGEL DRESSING 90 GM TUBE TP SCH (08:13)
[2018-03-25] MEDS: FLUTICASONE PROPIONATE 16 GM BOTTLE NS SCH (08:15)
[2018-03-25] MEDS: Z GUARD REMEDY 2 OZ OINT TP PRN (08:17)
--- NOTE | 2018-03-25 10:46 | NUR ---
MS RN NOTE: DR. PRINCE WROTE THE DISCHARGE ORDER FOR THE PATIENT, BUT HE WAS MADE AWARE THAT THE PATIENT HAS A PENDING WOUND DEBRIDEMENT ON THE (R) HIP WITH DR. VIVAS (PLASTIC SURGEON). PER DR. PRINCE, OK TO HOLD DISCHARGE FOR THE WOUND DEBRIDEMENT TO BE DONE. DAUGHTER, HEMAL ALDRIDGE WAS MADE AWARE.
[2018-03-25] MEDS ORDERED: CEPH-570 PO (10:47)
[2018-03-25 16:00] VITALS: BP 116/53
[2018-03-25] MEDS: LATANOPROST EYE DROP 0.005% 2.5 ML BOTTLE EACHEYE SCH (17:22)
[2018-03-25] MEDS: SIMVASTATIN 10 MG TABLET PO SCH (17:22)
--- NOTE | 2018-03-25 18:00 | NUR ---
MS RN NOTE: CALLED AND SPOKE WITH MS SANDRINE RN AND GAVE HER REPORT RE: THE PATIENT'S TRANSFER TO 2ND FLOOR MED SURG. PER SANDRINE, PATIENT WILL BE GOING TO ROOM 205-2. SHE WAS INFORMED THAT ACCORDING TO CHARGE NURSE SOON PATIENT WILL BE TRANSFERRED @ 1930 BY THE PM SHIFT NURSE. SANDRINE WAS MADE AWARE THAT THE PATIENT'S DISCHARGE WAS HELD DUE TO HIS WOUND DEBRIDEMENT ON THE (R) HIP WITH DR. VIVAS. DAUGHTER, HEMAL BECKWITH WAS MADE AWARE ABOUT IT.
--- NOTE | 2018-03-25 19:14 | NUR ---
MS RN NOTE: PATIENT IN BED, AWAKE, AND ALERT TO HIS NAME. RESPIRATION IS EVEN AND UNLABORED. NO FACIAL GRIMACING NOTED. REPORT GIVEN TO PM SHIFT NURSE FOR CONTINUITY OF CARE AND FOR TRANSFER TO ROOM 205-2 PER MS TACHO DELUCA.
--- NOTE | 2018-03-25 19:20 | NUR ---
RN NOTE; RECEIVED PT IN BED AWAKE AND ALERT. BREATHING EVENLY. NO SOB. NAD .SKIN WARM AND DRY. SX SITES ON THE ABD X4 CLEAN AND INTACT. NO S/S OF REOPENING, NO DISCHARGES. NO C/O ABD PAIN. NO N/V. ON ONGOING IVF HYDRATION. CELIA WELL. NEEDS ATTENDED. BED LOW LOCKED. CALL LIGHT WITHIN REACH. WILL CONT TO MONITOR . Addendum: 03/25/18 at 1925 by ADOLFO ENCINAS RN WRONG PT DOCUMENTATION
--- NOTE | 2018-03-25 19:20 | NUR ---
MS RN NOTE: RECEIVED PATIENT IN BED, ALERT, NO RESPIRATORY OR CARDIAC DISTRESS. NO FACIAL GRIMACING NOTED, NO PAIN NOTED. PATIENT ABLE TO MAKE NEEDS KNOWN, SKIN KEPT CLEAN AND DRY. DUE FOR TRANSFER TO ROOM 205-2 PER MS TACHO DELUCA. WILL CONTINUE TO MONITOR FOR ANY CHANGES IN CONDITION.
--- NOTE | 2018-03-25 19:58 | NUR ---
RN M/S NOTE PATIENT TRANSFERRED TO M/S VIA BED, ALL BELONGINGS WITH PATIENT TO M/S 205-2.
[2018-03-25 20:00] VITALS: BP 125/71
--- NOTE | 2018-03-25 20:15 | NUR ---
RECEIVED PT FROM 1ST FLOOR IN STABLE CONDITION. CONFUSED. BREATHING EVENLY. NO SOB; NAD. SKIN WARM AND DRY. NO S/S OF PAIN OR DISCOMFORT. VSS. IV LINE LEAKING W/ NOT RECEIVING ANY FLUID AT THIS TIME . A NEW IV LINE TO BE INSERTED . NEEDS ATTENDED. BED LOW LOCKED. CALL LIGHT WITHIN REACH. BED ALARM ON./ WILL CONT TO MONITOR .
[2018-03-25] MEDS: CEFTRIAXONE 1 G in IV NS 0.9% 50 ML IV SCH (21:05)
[2018-03-25] MEDS: TAMSULOSIN 0.4 MG CAP.SR.24H PO SCH (21:08)
[2018-03-25] MEDS: ENOXAPARIN SODIUM 30 MG/0.3 ML DISP.SYRIN SQ SCH (22:00)
--- NOTE | 2018-03-25 22:01 | NUR ---
HELD BENTLEYX PER 'S ORDER FOR R HIP DEBRIDEMENT IN AM,
--- NOTE | 2018-03-26 06:53 | NUR ---
PT IN BED SLEEPING AROUSES EASILY. NO ACUTE EVENT DURING THE NIGHT, NO S/S OR C/O PAIN OR DISCOMFORT. NEEDS ATTENDED. BED LOW LOCKED. SRX2. CALL LIGHT WITHIN REACH,. WILL CONT TO MONITOR AND WILL ENDORSE TO AM SHIFT FOR ASHLYN.
--- NOTE | 2018-03-26 07:30 | NUR ---
MS/RN Patient received Patient received from fast food shift supervisor. Sleeping soundly at this time, safety measures in place. Will continue to monitor and ensure safety.
[2018-03-26 08:00] VITALS: BP 128/61
[2018-03-26 08:07] VITALS: BP 128/61
[2018-03-26] MEDS: PANTOPRAZOLE 40 MG TABLET.DR PO SCH (08:26)
[2018-03-26] MEDS: SENNOSIDES 8.6 MG TABLET PO SCH (08:26)
[2018-03-26] MEDS: BISACODYL (5 MG) 5 MG TABLET.DR PO SCH (08:26)
[2018-03-26] MEDS: DOCUSATE SODIUM 100 MG CAPSULE PO SCH ×2 (08:26→17:00)
[2018-03-26] MEDS: ASPIRIN 81 MG TAB.CHEW PO SCH (08:26)
[2018-03-26] MEDS: MULTIVITAMINS,THERAGRAN 1 UDTAB TABLET PO SCH (08:26)
[2018-03-26] MEDS: ESCITALOPRAM OXALATE (10 MG) 10 MG TABLET PO SCH (08:27)
[2018-03-26] MEDS: OLANZAPINE 2.5 MG TABLET PO SCH ×3 (08:27→17:07)
[2018-03-26] MEDS: LORAZEPAM 0.5 MG TABLET PO SCH ×2 (08:27→17:07)
[2018-03-26] MEDS: MEMANTINE HCL 5 MG TABLET PO SCH (08:27)
[2018-03-26] MEDS: DIVALPROEX SODIUM 125 MG CAP.SPRINK PO SCH (08:29)
[2018-03-26] MEDS: HYDROGEL DRESSING 90 GM TUBE TP SCH (08:30)
[2018-03-26] MEDS: FLUTICASONE PROPIONATE 16 GM BOTTLE NS SCH (08:30)
[2018-03-26] MEDS: NYSTATIN TOP POWDER 15 GM BOTTLE TP SCH ×3 (08:31→17:00)
[2018-03-26] MEDS: IV 1/2NS 1000 ML 1,000 ML IV PRN (08:44)
--- NOTE | 2018-03-26 09:00 | NUR ---
MS/RN Medications Patient compliant with medications, all given crushed with pudding.
--- NOTE | 2018-03-26 11:10 | NUR ---
MS/RN S/B Dr Juarez Seen by eBn Juarez - patient to be discharged to SNF following bedside debridement.
--- NOTE | 2018-03-26 13:07 | NUR ---
MS/RN Debridement S/P debridement of right hip wound, photo taken and placed in chart.
--- NOTE | 2018-03-26 15:04 | NUR ---
MS/RN Report Report called to Tessie at [facility], transport scheduled for 5p.
[2018-03-26 16:00] VITALS: BP 119/69
[2018-03-26 16:04] VITALS: BP 119/69
--- NOTE | 2018-03-26 16:21 | NUR ---
MS/RN Exit care Exit care prepared and signed by two RN's as patient is confused.
[2018-03-26] MEDS: SIMVASTATIN 10 MG TABLET PO SCH (17:07)
[2018-03-26] MEDS: LATANOPROST EYE DROP 0.005% 2.5 ML BOTTLE EACHEYE SCH (17:07)
--- NOTE | 2018-03-26 18:13 | NUR ---
MS/staff physical therapist Patient discharged to SNF in stable condition. Heplock and name bands removed. Daughter Hilda Waldron called to inform, message left.
== END 2018-03-26 18:16 | DRG 981 ==
LOC: ER 16:53 → TELE-TD 20:25 → MEDSG1 03-21 11:58 → MEDSG2 03-25 19:57
PROVIDERS: ADMIT Internal Medicine; ATTEND Internal Medicine
PROC: 0KBQ0ZZ Excision of Right Upper Leg Muscle, Open Approach (ICD-10-PCS; principal; 2018-03-26)
DX: N39.0 Urinary tract infection, site not specified (principal); L89.313 Pressure ulcer of right buttock, stage 3; L89.210 Pressure ulcer of right hip, unstageable; L89.151 Pressure ulcer of sacral region, stage 1; G93.41 Metabolic encephalopathy; E87.0 Hyperosmolality and hypernatremia; D63.8 Anemia in other chronic diseases classified elsewhere; B95.0 Streptococcus, group A, as the cause of diseases classified elsewhere; E86.0 Dehydration; B96.89 Other specified bacterial agents as the cause of diseases classified elsewhere; F25.9 Schizoaffective disorder, unspecified; G30.9 Alzheimer's disease, unspecified; F02.80 Dementia in other diseases classified elsewhere, unspecified severity, without behavioral disturbance, psychotic disturbance, mood disturbance, and anxiety; Z86.73 Personal history of transient ischemic attack (TIA), and cerebral infarction without residual deficits; K21.9 Gastro-esophageal reflux disease without esophagitis; K58.9 Irritable bowel syndrome, unspecified; F29 Unspecified psychosis not due to a substance or known physiological condition; Z98.890 Other specified postprocedural states; E78.5 Hyperlipidemia, unspecified; Z79.82 Long term (current) use of aspirin; Z66 Do not resuscitate; N40.0 Benign prostatic hyperplasia without lower urinary tract symptoms; I10 Essential (primary) hypertension; R79.89 Other specified abnormal findings of blood chemistry; G89.29 Other chronic pain; M19.90 Unspecified osteoarthritis, unspecified site; R13.10 Dysphagia, unspecified
CPT/HCPCS: 36415; 70450-TC; 71045-TC; 80048-TC; 80305; 81000-TC; 83605-TC; 83735-TC; 84100-TC; 84484-TC; 85025-TC; 85730-TC; 87040-TC; 87081-TC; 87086-TC; 92611-TC; A4216; A4349; A4606; A6248; A6402; A6403; J0696; J1650; J3490; J7030; Z7610

== ENCOUNTER 2019-04-18 08:54 | Inpatient (IN) | payer MEDICARE ==
[~2019-04-18] VITALS: Ht 165.1 cm; Wt 64.9 kg
[~2019-04-18 08:54] MED LIST changes: +CEPH-570 PO; -DOXY100T2 PO; -LEVO500T2 PO; -SENN-167 PO; +SENN-168 PO
--- NOTE | 2019-04-18 08:58 | NUR ---
AIDEN LI [facility] FOR EPISODE OF SOB. AOX1, HOOKED TO SIMPLE MASK AT 2LP O2, OXYGEN SATURATION UPON ARRIVAL AT 93%. TO ER BED 9, HOOKED TO MONITOR, CHANGED TO GOWN, PROVIDED W WARM BLANKET, AWAITING MD GIORDANO
--- NOTE | 2019-04-18 09:09 | NUR ---
DR MCNAMARA AT BEDSIDE
--- NOTE | 2019-04-18 09:10 | NUR ---
URINE SAMPLE COLLECTED AND SENT TO LAB
--- NOTE | 2019-04-18 09:20 | NUR ---
BLOOD DRAWN, SENT TO LAB
[2019-04-18 09:23] LABS: BASOPHILS # (AUTO) 0.1 /CMM (0.0-0.2); BASOPHILS % (AUTO) 0.8 % (0.0-2.0); EOSINOPHILS % (AUTO) 3.7 % (0.0-6.0); HEMATOCRIT 41 % (39-51); LYMPHOCYTES # (AUTO) 1.7 /CMM (0.8-4.8); LYMPHOCYTES % (AUTO) 22.4 % (20.0-44.0); MEAN CORPUSCULAR HGB CONC 34 g/dl (31.0-36.0); MEAN CORPUSCULAR VOLUME 95 fL (80-96); MONOCYTES # (AUTO) 0.3 /CMM (0.1-1.30); MONOCYTES % (AUTO) 4.6 % (2.0-12.0); NEUTROPHILS # (AUTO) 5.1 /CMM (1.8-8.9); NEUTROPHILS % (AUTO) 68.5 % (43.0-81.0); PLATELET COUNT (AUTO) 248 /CMM (150-450); RED BLOOD CELL COUNT(AUTO) 4.33 MIL/uL (4.5-6.0); WHITE BLOOD COUNT (AUTO) 7.5 K/uL (4.3-11.0)
[2019-04-18] MEDS ORDERED: IV NS 0.9% 1,000 ML BAG IV ONE (09:30)
[2019-04-18 09:32] LABS: CALCIUM, SERUM 8.7 mg/dL (8.5-10.1); CARBON DIOXIDE 28 mmol/L (21-32); CHLORIDE 101 mmol/L (98-107); CREATININE 0.8 mg/dL (0.6-1.3); GLUCOSE 120 mg/dL (74-106); POTASSIUM 3.6 mmol/L (3.5-5.1); SODIUM SERUM 137 mmol/L (136-145); UREA NITROGEN, BLOOD 9 mg/dL (7-18)
[2019-04-18 09:38] LABS: ALANINE AMINOTRANSFERASE 20 U/L (12-78); ALBUMIN 3.3 g/dL (3.4-5.0); ALKALINE PHOSPHATASE 178 U/L (46-116); ASPARTATE AMINOTRANSFERASE 15 U/L (15-37); BILIRUBIN,TOTAL 0.4 mg/dL (0.2-1.0); TOTAL PROTEIN, SERUM 7.3 g/dL (6.4-8.2)
[2019-04-18 09:38] LABS: APPEARANCE,URINE Clear (CLEAR); BILIRUBIN,URINE Negative (NEGATIVE); BLOOD, URINE Trace-intact Ery/uL (NEGATIVE); COLOR,URINE Yellow (YELLOW); KETONES,URINE Negative (NEGATIVE); LEUKOCYTE ESTERASE ,URINE Negative (NEGATIVE); NITRITE, URINE Negative (NEGATIVE); PROTEIN,URINE Negative (NEGATIVE); UGLUCOSE Negative (NEGATIVE); UROBILINOGEN,URINE 0.2 EU/dL (0.2)
[2019-04-18 09:40] LABS: BACTERIA,URINE Few /HPF (None Seen); SQUAMOUS EPITHELIAL CELL,UR Few /HPF (None Seen); WBC,URINE 0-2 /HPF (0-3)
[2019-04-18] MEDS ORDERED: LORA0.5T PO (09:53)
[2019-04-18] MEDS ORDERED: NA P133E RC (09:53)
[2019-04-18] MEDS ORDERED: NUTR1PAC14 PO (09:53)
[2019-04-18] MEDS ORDERED: MAGN400O6 PO (09:53)
[2019-04-18] MEDS ORDERED: AMIN30LI27 PO (09:53)
[2019-04-18] MEDS ORDERED: MULT-439 PO (09:53)
[2019-04-18] MEDS ORDERED: ESCI10TA PO (09:53)
[2019-04-18] MEDS ORDERED: DIVA250T4 PO (09:53)
[2019-04-18] MEDS ORDERED: LORA10TA7 PO (09:53)
[2019-04-18] MEDS ORDERED: DOCU-141 PO (09:53)
[2019-04-18] MEDS ORDERED: ACET-868 PO (09:53)
[2019-04-18] MEDS ORDERED: OLAN2.5T3 PO (09:53)
[2019-04-18] MEDS ORDERED: CEFTRIAXONE 1GM BAG (ER ONLY) 50 ML IV ONE ×2 (10:27→10:30)
[2019-04-18] MEDS ORDERED: CLINDAMYCIN 600 MG in IV D5W 100 ML IV ONE (10:30)
[2019-04-18] MEDS ORDERED: IV NS 0.9% 1,000 ML IV PRN (11:07)
--- NOTE | 2019-04-18 11:20 | NUR ---
WHEELED OUT VIA RNEY FOR CT SCAN
--- NOTE | 2019-04-18 11:23 | NUR ---
REPORT GIVEN TO WILTON TITUS OF DOLORES
[2019-04-18] MEDS ORDERED: MAG HYDROX/AL HYDROX/SIMETH 30 ML UDC PO PRN (11:30)
[2019-04-18] MEDS ORDERED: MORPHINE SULFATE INJ 2 MG/ML DISP.SYRIN IV PRN (11:30)
[2019-04-18] MEDS ORDERED: ACETAMINOPHEN 650 MG/SUPP.RECT RC PRN (11:30)
[2019-04-18] MEDS ORDERED: LORATADINE 10 MG TABLET PO PRN (11:30)
[2019-04-18] MEDS ORDERED: SENNOSIDES 8.6 MG TABLET PO PRN (11:30)
[2019-04-18] MEDS ORDERED: LORAZEPAM 0.5 MG TABLET PO PRN (11:30)
[2019-04-18] MEDS ORDERED: MAGNESIUM HYDROXIDE 30 ML UDC PO PRN (11:30)
[2019-04-18] MEDS ORDERED: ONDANSETRON HCL/PF 4 MG/2 ML VIAL IVP PRN (11:30)
[2019-04-18] MEDS ORDERED: Z GUARD REMEDY 2 OZ OINT TP PRN (11:30)
--- NOTE | 2019-04-18 11:40 | NUR ---
RN NOTES RECEIVED PATIENT FROM ER. PATIENT ACCOMPANIED BY ER NURSE TO THE UNIT. RECEIVED REPORT. PATIENT WAS TRANSFERRED TO THE BED. TELE MONITOR IN PLACE. INITIAL SKIN ASSESSMENT DONE, TOOK PICTURES AND WAS PLACED IN THE CHART FOR RECORDS. PATIENT AWAKE, ABLE TO RESPOND TO TACTILE STIMULI. NO PAIN OR ACUTE DISTRESS AT THIS TIME. RESPIRATION EVEN AND UNLABORED. SKIN IS DRY WARM TO TOUCH. PATIENT NOTED WITH IV ACCESS ON RFA. INTACT AND PATENT. NO S/S OF INFECTION OR INFILTRATION. FLUSHING WELL. ALL NEEDS ANTICIPATED. KEPT CLEAN AND DRY. CALL LIGHT WITHIN REACHED. PLAN OF CARE DISCUSSED. WILL CONTINUE TO MONITOR CLOSELY.
[2019-04-18 12:00] VITALS: BP 138/71
[2019-04-18] MEDS: PROSOURCE / PROSTAT (PYXIS) 30 ML UDC PO SCH (12:00)
[2019-04-18 12:03] LABS: ABG BASE EXCESS 2.2 mmol/L; ABG OXYGEN SATURATION 97.4 % (92.0-98.5); ABG PCO2 45.2 mmHg (35.0-45.0); ABG PH 7.402 (7.350-7.450); ABG PO2 102.1 mmHg (75.0-100.0); AaDO2 203.6 mmHg; COHb 0.4 % (0.5-1.5); MetHb 0.6 % (0.0-1.5); O2Hb 96.4 % (94.0-97.0); SITE, ABG Left Radial; VENT MODE, BG SIMPLE MASK
[2019-04-18] MEDS: OLANZAPINE 2.5 MG TABLET PO SCH ×3 (13:00→21:00)
[2019-04-18] MEDS ORDERED: PIPERACILLIN /TAZOBACTAM 3.375 G in IV D5W 50 ML IV ONE (13:00)
[2019-04-18 16:00] VITALS: BP 139/58
[2019-04-18] MEDS: MEMANTINE HCL 5 MG TABLET PO SCH (16:55)
[2019-04-18] MEDS: DIVALPROEX SODIUM 250 MG TABLET.DR PO SCH (16:55)
[2019-04-18] MEDS: DOCUSATE SODIUM 100 MG CAPSULE PO SCH (16:55)
[2019-04-18] MEDS ORDERED: Medication Not On Formulary EA (Arginine/Glutamine/Calcium Hmb (Juven Packet) 1 EACH) PO SCH (17:00)
--- NOTE | 2019-04-18 19:04 | NUR ---
RN NOTES PATIENT CONTINUES TO REMAIN IN STABLE CONDITION. PROVIDED COMFORT AND SAFETY. NO PAIN OR ACUTE DISTRESS AT THIS TIME. RESPIRATION EVEN AND UNLABORED. SKIN IS DRY WARM TO TOUCH. IV ACCESS ON RFA #18G WITH IV FLUIDS RUNNING. INTACT AND PATENT. FLUSHING WELL. PATIENT ALSO ON O2 THERAPY VIA FACE MASK. TOLERATED WELL. ALL NEEDS ANTICIPATED. KEPT CLEAN AND DRY. CALL LIGHT WITHIN REACHED. BED LOCKED AND IN LOWEST POSITION. WILL CONTINUE TO MONITOR. ENDORSED TO PM NURSE FOR ASHLYN.
[2019-04-18 20:00] VITALS: BP 125/64
[2019-04-18] MEDS: TAMSULOSIN 0.4 MG CAP.SR.24H PO SCH (21:26)
[2019-04-18] MEDS: SIMVASTATIN 10 MG TABLET PO SCH (21:26)
[2019-04-18] MEDS: PIPERACILLIN /TAZOBACTAM 3.375 G in IV D5W 100 ML IV SCH (21:53)
[2019-04-18] MEDS ORDERED: LATANOPROST EYE DROP 0.005% 2.5 ML BOTTLE ONE (22:29)
[2019-04-18] MEDS: LATANOPROST EYE DROP 0.005% 2.5 ML BOTTLE EACHEYE SCH (22:32)
--- NOTE | 2019-04-18 23:05 | NUR ---
DOLORES RN NOTES RECEIVED PTS IN BED AWAKE , NPO STATUS, ON TELE SR ON THE MONITOR SATING 97% PTS ON 6LITERS OF O2 VIA FACEMASK , V/S STABLE AT THIS TIME .PTS ON IVF OF NS AT 50CC/HR INFUSING WELL , TURNED AND REPOSITION DONE , WITH IV HEPLOCK ON RFA G#18 INTACT AND PATENT, NO SOB NO DISTRESS NOTED , DUE IV MEDS GIVEN ORDER ,PO MEDICATION NON ADMINISTERED AT THIS TIME D/T NPO STATUS. WILL CONTINUE TO MONITOR PTS.
--- NOTE | 2019-04-18 23:14 | NUR ---
DOLORES RN NOTES CT ABDOMEN /PELVIS RELAYED TO ELVIA QUACH WITH NO NEW ORDER AT THIS TIME.
[2019-04-19] VITALS: BP 117/61
--- NOTE | 2019-04-19 02:00 | NUR ---
DOLORES RN NOTES O2 WAS TITRATED TO 3 LITERS VIA NC SATING 98% V/S STABLE AFEBRILE.
[2019-04-19 04:00] VITALS: BP 123/74
[2019-04-19] MEDS: PIPERACILLIN /TAZOBACTAM 3.375 G in IV D5W 100 ML IV SCH ×3 (05:21→20:59)
[2019-04-19] MEDS: IV NS 0.9% 1,000 ML IV PRN (05:38)
--- NOTE | 2019-04-19 07:30 | NUR ---
RN note received pt on bed, awake, garbled speech, follows simple commands, on nc 5 l/min, on telemetry SR 79, vs stable. iv infusing zosyn, clan and dry, call light within reach, bed in low and locked position, bed alarm on. will continue to monitor.
[2019-04-19 07:49] LABS: BASOPHILS % (AUTO) 0.2 % (0.0-2.0); EOSINOPHILS % (AUTO) 0.2 % (0.0-6.0); HEMATOCRIT 36 % (39-51); HEMOGLOBIN 12.1 g/dL (13.5-17.5); LYMPHOCYTES # (AUTO) 0.9 /CMM (0.8-4.8); LYMPHOCYTES % (AUTO) 6.2 % (20.0-44.0); MEAN CORPUSCULAR HGB CONC 34 g/dl (31.0-36.0); MEAN CORPUSCULAR VOLUME 94 fL (80-96); MONOCYTES # (AUTO) 0.6 /CMM (0.1-1.30); MONOCYTES % (AUTO) 4.2 % (2.0-12.0); NEUTROPHILS # (AUTO) 13.2 /CMM (1.8-8.9); NEUTROPHILS % (AUTO) 89.2 % (43.0-81.0); PLATELET COUNT (AUTO) 176 /CMM (150-450); RED BLOOD CELL COUNT(AUTO) 3.79 MIL/uL (4.5-6.0); WHITE BLOOD COUNT (AUTO) 14.7 K/uL (4.3-11.0)
[2019-04-19 08:00] VITALS: BP 91/49
[2019-04-19 08:05] LABS: CALCIUM, SERUM 8.4 mg/dL (8.5-10.1); CARBON DIOXIDE 31 mmol/L (21-32); CHLORIDE 101 mmol/L (98-107); CREATININE 0.7 mg/dL (0.6-1.3); GLUCOSE 101 mg/dL (74-106); MAGNESIUM 2.1 mg/dL (1.8-2.4); PHOSPHORUS 3.3 mg/dL (2.5-4.9); POTASSIUM 3.9 mmol/L (3.5-5.1); SODIUM SERUM 137 mmol/L (136-145); UREA NITROGEN, BLOOD 11 mg/dL (7-18)
[2019-04-19 08:18] LABS: CHOLESTEROL 128 mg/dL (<200); HDL CHOLESTEROL 51 mg/dL (40-60); LDL 70 mg/dL (0-99); THYROID STIMULATING HORMONE 0.541 uIU/mL (0.358-3.74); TRIGLYCERIDES 47 mg/dL (30-150)
--- NOTE | 2019-04-19 09:45 | NUR ---
rn note pt passed nursing swallow eval at bedside. able to swallow pureed food and tolerates liquids fine without drooling or coughing. per MD okay to resume pureed diet. will keep aspiration precautions active, suction at bedside ready, HOB elevated 60 degree.
[2019-04-19] MEDS: PROSOURCE / PROSTAT (PYXIS) 30 ML UDC PO SCH (10:20)
[2019-04-19] MEDS: ESCITALOPRAM OXALATE (10 MG) 10 MG TABLET PO SCH (10:20)
[2019-04-19] MEDS: PANTOPRAZOLE 40 MG TABLET.DR PO SCH (10:20)
[2019-04-19] MEDS: DIVALPROEX SODIUM 250 MG TABLET.DR PO SCH ×2 (10:20→16:57)
[2019-04-19] MEDS: MEMANTINE HCL 5 MG TABLET PO SCH ×2 (10:20→16:57)
[2019-04-19] MEDS: OLANZAPINE 2.5 MG TABLET PO SCH ×4 (10:20→20:59)
[2019-04-19] MEDS: DOCUSATE SODIUM 100 MG CAPSULE PO SCH ×2 (10:21→16:56)
[2019-04-19] MEDS: ASPIRIN 81 MG TAB.CHEW PO SCH (10:21)
[2019-04-19] MEDS: MULTIVIT W/MINERALS 1 TAB TABLET PO SCH (10:21)
--- NOTE | 2019-04-19 11:00 | NUR ---
RN NOTE Bladder scanner read 198ml of urine, will monitor further.
[2019-04-19 12:00] VITALS: BP 130/59
[2019-04-19 16:00] VITALS: BP 124/56
--- NOTE | 2019-04-19 19:00 | NUR ---
rn note pt had only one time wet diaper for 12h. Shane Foley paged, he ordered to check with bladder scanner and increase ivf to 75ml/hr. will order and endorse to child and adolescent therapist.
[2019-04-19 20:00] VITALS: BP 105/57
--- NOTE | 2019-04-19 20:00 | NUR ---
will rn notes received pts in bed awake and responsive, on nc at 3 liters of o2, sating 100% on tele sr on the monitor.no sob no distress noted. v/s stable afebrile .all needs attended too call light within reach , pts is turned reposition , on iv fluids of ns at 75cc/hr.infusing well heplock on rfa g#18 intact and patent.due meds given as ordered , pts on thickened liquid well tolerated .hob elevated for aspiration precaution. pts had 1 soaked urine diaper at this time, will continue to monitor .
[2019-04-19] MEDS: TAMSULOSIN 0.4 MG CAP.SR.24H PO SCH (22:12)
[2019-04-19] MEDS: SIMVASTATIN 10 MG TABLET PO SCH (22:14)
[2019-04-19] MEDS: LATANOPROST EYE DROP 0.005% 2.5 ML BOTTLE EACHEYE SCH (22:15)
[2019-04-20] VITALS: BP 107/55
[2019-04-20] MEDS: IV NS 0.9% 1,000 ML IV PRN ×2 (03:56→21:40)
[2019-04-20 04:00] VITALS: BP 132/69
[2019-04-20] MEDS: PIPERACILLIN /TAZOBACTAM 3.375 G in IV D5W 100 ML IV SCH ×3 (04:03→21:19)
--- NOTE | 2019-04-20 06:23 | NUR ---
DOLORES RN NOTES PTS IN BED COMFORTABLE ,ON 3 LITERS OF O2 VIA NC , NO SOB NO DISTRESS NOTED , REMAINS ON IVF AT NS AT 75CC WELL TOLERATED, ALL NEEDS ATTENDED TOO CALL LIGHT WITHIN REACH , WILL ENDORSED TO RN DAY SHIFT FOR CONTINUITY OF CARE.
[2019-04-20 06:53] LABS: BASOPHILS % (AUTO) 0.2 % (0.0-2.0); EOSINOPHILS % (AUTO) 1.5 % (0.0-6.0); HEMATOCRIT 34 % (39-51); HEMOGLOBIN 11.7 g/dL (13.5-17.5); LYMPHOCYTES # (AUTO) 0.8 /CMM (0.8-4.8); LYMPHOCYTES % (AUTO) 8.1 % (20.0-44.0); MEAN CORPUSCULAR HGB CONC 35 g/dl (31.0-36.0); MEAN CORPUSCULAR VOLUME 94 fL (80-96); MONOCYTES # (AUTO) 0.5 /CMM (0.1-1.30); MONOCYTES % (AUTO) 5.1 % (2.0-12.0); NEUTROPHILS # (AUTO) 8.3 /CMM (1.8-8.9); NEUTROPHILS % (AUTO) 85.1 % (43.0-81.0); PLATELET COUNT (AUTO) 162 /CMM (150-450); RED BLOOD CELL COUNT(AUTO) 3.56 MIL/uL (4.5-6.0); WHITE BLOOD COUNT (AUTO) 9.7 K/uL (4.3-11.0)
[2019-04-20 07:00] LABS: CALCIUM, SERUM 8.5 mg/dL (8.5-10.1); CARBON DIOXIDE 32 mmol/L (21-32); CHLORIDE 101 mmol/L (98-107); CREATININE 0.7 mg/dL (0.6-1.3); GLUCOSE 99 mg/dL (74-106); POTASSIUM 3.1 mmol/L (3.5-5.1); SODIUM SERUM 139 mmol/L (136-145); UREA NITROGEN, BLOOD 11 mg/dL (7-18)
[2019-04-20 08:00] VITALS: BP 137/67
[2019-04-20] MEDS: OLANZAPINE 2.5 MG TABLET PO SCH ×4 (08:10→21:18)
[2019-04-20] MEDS: ESCITALOPRAM OXALATE (10 MG) 10 MG TABLET PO SCH (08:11)
[2019-04-20] MEDS: ASPIRIN 81 MG TAB.CHEW PO SCH (08:11)
[2019-04-20] MEDS: DOCUSATE SODIUM 100 MG CAPSULE PO SCH ×2 (08:11→16:28)
[2019-04-20] MEDS: PANTOPRAZOLE 40 MG TABLET.DR PO SCH (08:11)
[2019-04-20] MEDS: DIVALPROEX SODIUM 250 MG TABLET.DR PO SCH ×2 (08:11→16:28)
[2019-04-20] MEDS: MULTIVIT W/MINERALS 1 TAB TABLET PO SCH (08:11)
[2019-04-20] MEDS: MEMANTINE HCL 5 MG TABLET PO SCH ×2 (08:11→16:29)
[2019-04-20] MEDS: PROSOURCE / PROSTAT (PYXIS) 30 ML UDC PO SCH (08:12)
[2019-04-20] MEDS ORDERED: POTASSIUM CHLORIDE 20 MEQ POWDER PACKET PO SCH (11:00)
[2019-04-20 12:00] VITALS: BP 127/50
[2019-04-20 16:00] VITALS: BP_SYST 142; BP_DIAS 55; BP_DIAS 58
--- NOTE | 2019-04-20 19:44 | NUR ---
RN OPENING NOTES RECEIVED PT IN BED, AWAKE ALERT ORIENTED X1-2. BREATHING EVEN AND UNLABORED ON 3L O2 NC, NO SOB, COUGH OR CONGESTION NOTED. IN APPARENT PAIN OR DISCOMFORT AT THIS TIME. IV ACCESS ON THE R FA 18G WITH NS @75ML/HR. CONDOM CATH IN PLACE AND DRAINING. BED IN LOWEST UPRIGHT POSITION, CALL LIGHT WITHIN REACH AT ALL TIMES , WILL CONTINUE TO MONITOR FREQUENTLY
[2019-04-20 20:00] VITALS: BP_SYST 132; BP_DIAS 73; BP_DIAS 76
[2019-04-20] MEDS: TAMSULOSIN 0.4 MG CAP.SR.24H PO SCH (21:18)
[2019-04-20] MEDS: LATANOPROST EYE DROP 0.005% 2.5 ML BOTTLE EACHEYE SCH (21:19)
[2019-04-20] MEDS: SIMVASTATIN 10 MG TABLET PO SCH (21:19)
[2019-04-21] VITALS: BP 160/74
[2019-04-21 04:00] VITALS: BP_SYST 142; BP_DIAS 52; BP_DIAS 72
[2019-04-21] MEDS: PIPERACILLIN /TAZOBACTAM 3.375 G in IV D5W 100 ML IV SCH ×3 (04:13→21:37)
--- NOTE | 2019-04-21 06:21 | NUR ---
RN CLOSING NOTES PT REMAINS IN BED, AWAKE ALERT ORIENTED X1-2. BREATHING EVEN AND UNLABORED ON 3L O2 NC, NO SOB, COUGH OR CONGESTION NOTED. IN APPARENT PAIN OR DISCOMFORT AT THIS TIME. IV ACCESS ON THE R FA 18G WITH NS @75ML/HR. CONDOM CATH IN PLACE OUTPUT OF 2900ML. BED IN LOWEST UPRIGHT POSITION, CALL LIGHT WITHIN REACH AT ALL TIMES , WILL ENDORSE TO DAY NURSE FOR ASHLYN
[2019-04-21 06:48] LABS: BASOPHILS % (AUTO) 0.5 % (0.0-2.0); EOSINOPHILS % (AUTO) 4.4 % (0.0-6.0); HEMATOCRIT 36 % (39-51); HEMOGLOBIN 12.7 g/dL (13.5-17.5); LYMPHOCYTES % (AUTO) 12.4 % (20.0-44.0); MEAN CORPUSCULAR HGB CONC 35 g/dl (31.0-36.0); MEAN CORPUSCULAR VOLUME 93 fL (80-96); MONOCYTES # (AUTO) 0.4 /CMM (0.1-1.30); MONOCYTES % (AUTO) 4.9 % (2.0-12.0); NEUTROPHILS # (AUTO) 6.3 /CMM (1.8-8.9); NEUTROPHILS % (AUTO) 77.8 % (43.0-81.0); PLATELET COUNT (AUTO) 161 /CMM (150-450); WHITE BLOOD COUNT (AUTO) 8.1 K/uL (4.3-11.0)
[2019-04-21 07:13] LABS: CALCIUM, SERUM 8.9 mg/dL (8.5-10.1); CARBON DIOXIDE 34 mmol/L (21-32); CHLORIDE 101 mmol/L (98-107); CREATININE 0.6 mg/dL (0.6-1.3); GLUCOSE 94 mg/dL (74-106); POTASSIUM 3.6 mmol/L (3.5-5.1); SODIUM SERUM 143 mmol/L (136-145); UREA NITROGEN, BLOOD 7 mg/dL (7-18)
--- NOTE | 2019-04-21 07:25 | NUR ---
DIRECTOR UTILIZATION MANAGEMENT OPENING NOTES PT IS ASLEEP APPEARS TO BE COMFORTABLE. RECEIVED REPORT FROM PORTABLE FEED MILL OPERATOR RN. PT IS ON 3L O2 NC. PT HAS RFA 18 GAUGE RUNNING NS AT 75ML/HR. PT HAS A CONDOM CATH DRAINING CLEAR URINE. BED IS LOCKED AND IN LOWEST POSITION WILL CONTINUE TO MONITOR, CALL LIGHT IN REACH OF PT. WILL CONTINUE TO MONITOR PT.
[2019-04-21 08:00] VITALS: BP 133/68
[2019-04-21] MEDS: DIVALPROEX SODIUM 250 MG TABLET.DR PO SCH ×2 (09:09→16:25)
[2019-04-21] MEDS: MULTIVIT W/MINERALS 1 TAB TABLET PO SCH (09:09)
[2019-04-21] MEDS: ESCITALOPRAM OXALATE (10 MG) 10 MG TABLET PO SCH (09:09)
[2019-04-21] MEDS: OLANZAPINE 2.5 MG TABLET PO SCH ×4 (09:09→21:37)
[2019-04-21] MEDS: ASPIRIN 81 MG TAB.CHEW PO SCH (09:09)
[2019-04-21] MEDS: PANTOPRAZOLE 40 MG TABLET.DR PO SCH (09:09)
[2019-04-21] MEDS: DOCUSATE SODIUM 100 MG CAPSULE PO SCH ×2 (09:10→16:25)
[2019-04-21] MEDS: MEMANTINE HCL 5 MG TABLET PO SCH ×2 (09:10→16:25)
[2019-04-21] MEDS: PROSOURCE / PROSTAT (PYXIS) 30 ML UDC PO SCH (09:10)
[2019-04-21 12:00] VITALS: BP 163/72
[2019-04-21] MEDS: IV NS 0.9% 1,000 ML IV PRN (12:11)
[2019-04-21] MEDS: HYDROGEL DRESSING 90 GM TUBE TP SCH ×2 (13:10→21:41)
[2019-04-21] MEDS: Z GUARD REMEDY 2 OZ OINT TP SCH ×2 (13:10→21:39)
[2019-04-21 16:00] VITALS: BP 133/76
[2019-04-21] MEDS: CLOTRIMAZOLE 1% 15 GM TUBE TP SCH (16:25)
--- NOTE | 2019-04-21 19:03 | NUR ---
RN CLOSING NOTES PT IS ASLEEP APPEARS TO BE COMFORTABLE. GAVE REPORT TO OUTPLACEMENT CONSULTANT RN. PT IS ON 3L O2 NC. PT HAS RFA 18 GAUGE RUNNING NS AT 75ML/HR. PT HAS A CONDOM CATH DRAINING CLEAR URINE. BED IS LOCKED AND IN LOWEST POSITION, CALL LIGHT IN REACH OF PT. WILL ENDORSE CONTINUITY OF CARE TO OUTPLACEMENT CONSULTANT RN.
--- NOTE | 2019-04-21 19:30 | NUR ---
CALL PERSON OPENING NOTES RECEIVED PATIENT IN BED ASLEEP. IN NO DISTRESS. AROUSABLE TO NAME AND LIGHT TOUCH. PATIENT IS ALERT AND ORIENTED X1, CONFUSED. BREATHING EVEN AND UNLABORED. NO SOB NOTED. ON 3LPM VIA NC. NO S/S OF PAIN OR DISCOMFORT. NO FACIAL GRIMACING. IV ON RIGHT FOREARM INTACT AND PATENT WITH IVF INFUSING. SKIN DRY AND WARM TO TOUCH. AFEBRILE. PATIENT NOTED WITH CONDOM CATH INTACT AND DRAINING WELL. ALL OTHER NEEDS ATTENDED TO. SAFETY MEASURES IN PLACE. CALL LIGHT WITHIN REACH. WILL CONTINUE TO MONITOR.
[2019-04-21 20:00] VITALS: BP 149/70
[2019-04-21] MEDS: TAMSULOSIN 0.4 MG CAP.SR.24H PO SCH (21:37)
[2019-04-21] MEDS: LATANOPROST EYE DROP 0.005% 2.5 ML BOTTLE EACHEYE SCH (21:38)
[2019-04-21] MEDS: SIMVASTATIN 10 MG TABLET PO SCH (21:39)
[2019-04-22] VITALS: BP 148/69
[2019-04-22] MEDS: IV NS 0.9% 1,000 ML IV PRN ×2 (02:46→17:37)
[2019-04-22 04:00] VITALS: BP 156/70
[2019-04-22] MEDS: PIPERACILLIN /TAZOBACTAM 3.375 G in IV D5W 100 ML IV SCH ×3 (05:28→20:40)
--- NOTE | 2019-04-22 05:30 | NUR ---
OVERHEAD GARAGE DOOR HANGER NOTES ATTEMPTED TO CALL DAUGHTER, HEMAL BECKWITH, FOR CONSENT FOR DEBRIDEMENT. WENT STRAIGHT TO VOICETNIL. CALLED TWICE AND LEFT VM TWICE. ENDORSED TO ONCOMING NURSE FOR F/U.
--- NOTE | 2019-04-22 07:08 | NUR ---
GARNISHER CLOSING NOTES PATIENT RESTING IN BED. NO ACUTE CHANGES THROUGHOUT SHIFT. SR ON TELE. BREATHING EVEN AND UNLABORED. NO SOB NOTED. ON 3LPM VIA NC. NO S/S OF PAIN OR DISCOMFORT. NO FACIAL GRIMACING. IV ON RIGHT FOREARM INTACT AND PATENT WITH IVF INFUSING. DRESSINGS CHANGED. KEPT CLEAN DRY AND COMFORTABLE. CONDOM CATH INTACT AND DRAINING WELL. ALL OTHER NEEDS ATTENDED TO. SAFETY MEASURES IN PLACE. CALL LIGHT WITHIN REACH. WILL ENDORSE TO ONCOMING NURSE FOR ASHLYN.
--- NOTE | 2019-04-22 07:56 | NUR ---
television news producer note patient in bed , alert , oriented x1 on tele monitor sr hr 65, , with condom cath with yellow color urine , rt fa hl on ivf as ordered , bed in lowest and locked position, on 3l nc of o2 ,no sob noted , plan of care discussed with patient , will cont to monitor closely
[2019-04-22 08:00] VITALS: BP 152/72
[2019-04-22] MEDS: ESCITALOPRAM OXALATE (10 MG) 10 MG TABLET PO SCH (08:02)
[2019-04-22] MEDS: PROSOURCE / PROSTAT (PYXIS) 30 ML UDC PO SCH (08:03)
[2019-04-22] MEDS: DIVALPROEX SODIUM 250 MG TABLET.DR PO SCH ×2 (08:03→16:31)
[2019-04-22] MEDS: DOCUSATE SODIUM 100 MG CAPSULE PO SCH ×2 (08:03→16:31)
[2019-04-22] MEDS: ASPIRIN 81 MG TAB.CHEW PO SCH (08:03)
[2019-04-22] MEDS: PANTOPRAZOLE 40 MG TABLET.DR PO SCH (08:03)
[2019-04-22] MEDS: OLANZAPINE 2.5 MG TABLET PO SCH ×4 (08:03→20:40)
[2019-04-22] MEDS: MULTIVIT W/MINERALS 1 TAB TABLET PO SCH (08:03)
[2019-04-22] MEDS: MEMANTINE HCL 5 MG TABLET PO SCH ×2 (08:03→16:31)
[2019-04-22] MEDS: Z GUARD REMEDY 2 OZ OINT TP SCH ×2 (08:05→20:40)
[2019-04-22] MEDS: CLOTRIMAZOLE 1% 15 GM TUBE TP SCH ×2 (08:05→16:31)
[2019-04-22] MEDS: HYDROGEL DRESSING 90 GM TUBE TP SCH ×2 (08:05→20:41)
--- NOTE | 2019-04-22 08:53 | NUR ---
WOUND CARE CONSULT: PT FOLLOWED BY PLASTIC SURGERY TEAM FOR WOUNDS. DEFER TO SURGICAL TEAM FOR WOUND TREATMENT PLAN. PT NOTED TO HAVE INTACT DEEP TISSUE INJURY TO LEFT HEEL, PRESENT ON ADMISSION. NO TENDERNESS OR DRAINAGE NOTED. RECOMMENDATIONS MADE FOR SKIN AND HEEL PROTECTION AND DISCUSSED WITH NURSING STAFF. WILL SEE PRN. [facility] MATTR[facility].
--- NOTE | 2019-04-22 09:39 | NUR ---
BISQUE TILE BURNER NOTE SPOKE WITH DAUGHTER, TELEPHONE CONSENT OBTAINED FOR WOUND DEBRIDEMENT
--- NOTE | 2019-04-22 10:00 | NUR ---
MS RN NOTE SEEN BY MARY MORTON TO CONT PUREE DIET WILL F\U
--- NOTE | 2019-04-22 10:49 | NUR ---
MS RN NOTE SEEN BY WILTON BRIDGES RN CLAY HOUSE WORKER AWARE THAT WOUND DEBRIDEMENT WILL BE DONE TODAY AND OK TO CONT ON IVF ORDERED, ST AT BEDSIDE OK TO CONT PUREE DIET WILL CONT TO MONITOR CLOSELY
--- NOTE | 2019-04-22 12:34 | NUR ---
MS RN NOTE WOUND DEBRIDEMENT DONE BY EDILBERTO TITUS PRINTED CIRCUIT LAYOUT TAPER WOUND FOR NELDA , KEEP AFFECTED AREA CLEAN ,DRY
--- NOTE | 2019-04-22 15:00 | NUR ---
ms rn nt e keep clean dry , able to make bm , all needs attended ,on ivf as ordered will cont to monitor closely
[2019-04-22 16:00] VITALS: BP 116/62
--- NOTE | 2019-04-22 19:12 | NUR ---
telephone mechanic note fed patient , able to eat 100 % not in distress , cont on ivf as ordered
[2019-04-22 20:00] VITALS: BP 124/58
[2019-04-22] MEDS: TAMSULOSIN 0.4 MG CAP.SR.24H PO SCH (21:01)
[2019-04-22] MEDS: LATANOPROST EYE DROP 0.005% 2.5 ML BOTTLE EACHEYE SCH (21:01)
[2019-04-22] MEDS: SIMVASTATIN 10 MG TABLET PO SCH (21:02)
--- NOTE | 2019-04-22 22:30 | NUR ---
RN NOTES, endorsed patient in stable condition for continuation of care to TACHO ho.
--- NOTE | 2019-04-22 22:30 | NUR ---
RECEIVED REPORT FROM GABY TITUS,. PT STABLE AND COMFORTABLE, WILL CONTINUE CARE.
[2019-04-23] VITALS: BP 124/58
[2019-04-23 04:00] VITALS: BP 139/74
[2019-04-23] MEDS: PIPERACILLIN /TAZOBACTAM 3.375 G in IV D5W 100 ML IV SCH ×3 (04:22→21:47)
--- NOTE | 2019-04-23 06:22 | NUR ---
RN MS CLOSING NOTES PT REMAINS IN BED, SLEEPING EASILY AROUSED TO NAME CALL, BREATHING EVEN AND UNLABORED ON 3L O2 NC. NO SOB. IN NO APPARENT PAIN OR DISCOMFORT AT THIS TIME. IV ACCESS ON THE RIGHT FA 20G WITH NS @60ML/HR. BED IN LOWEST LOCKED POSITION, CALL LIGHT WITHIN REACH AT ALL TIMES, WILL ENDORSE TO DAY NURSE FOR ASHLYN.
[2019-04-23 06:49] LABS: BASOPHILS % (AUTO) 0.4 % (0.0-2.0); HEMATOCRIT 37 % (39-51); HEMOGLOBIN 12.5 g/dL (13.5-17.5); LYMPHOCYTES # (AUTO) 1.1 /CMM (0.8-4.8); LYMPHOCYTES % (AUTO) 16.4 % (20.0-44.0); MEAN CORPUSCULAR HGB CONC 34 g/dl (31.0-36.0); MEAN CORPUSCULAR VOLUME 94 fL (80-96); MONOCYTES # (AUTO) 0.4 /CMM (0.1-1.30); MONOCYTES % (AUTO) 5.7 % (2.0-12.0); NEUTROPHILS % (AUTO) 72.5 % (43.0-81.0); PLATELET COUNT (AUTO) 187 /CMM (150-450); WHITE BLOOD COUNT (AUTO) 6.9 K/uL (4.3-11.0)
[2019-04-23 07:19] LABS: CALCIUM, SERUM 8.7 mg/dL (8.5-10.1); CARBON DIOXIDE 31 mmol/L (21-32); CHLORIDE 103 mmol/L (98-107); CREATININE 0.6 mg/dL (0.6-1.3); GLUCOSE 96 mg/dL (74-106); POTASSIUM 3.4 mmol/L (3.5-5.1); SODIUM SERUM 141 mmol/L (136-145); UREA NITROGEN, BLOOD 9 mg/dL (7-18)
[2019-04-23 08:00] VITALS: BP 144/59
--- NOTE | 2019-04-23 08:21 | NUR ---
RN MS OPENING NOTES PT RECEIVED IN BED SLEEPING. NO SOB OR ACUTE DISTRESS NOTED. BREATHING EVEN AND UNLABORED ON ROOM AIR, R FA 20G INTACT AND PATENT INFUSING NS @ 75ML/HR. SACRAL DRESSING CHANGED, WOUND PACKED OVERNIGHT. BED IN LOWEST LOCKED POSITION, CALL LIGHT WITHIN REACH AT ALL TIMES, WILL CONTINUE TO MONITOR.
[2019-04-23] MEDS ORDERED: POTASSIUM CHLORIDE 20 MEQ TAB.PRT.SR PO SCH (09:00)
[2019-04-23] MEDS: ASPIRIN 81 MG TAB.CHEW PO SCH (09:23)
[2019-04-23] MEDS: MULTIVIT W/MINERALS 1 TAB TABLET PO SCH (09:23)
[2019-04-23] MEDS: DIVALPROEX SODIUM 250 MG TABLET.DR PO SCH ×2 (09:23→16:39)
[2019-04-23] MEDS: OLANZAPINE 2.5 MG TABLET PO SCH ×4 (09:23→21:46)
[2019-04-23] MEDS: ESCITALOPRAM OXALATE (10 MG) 10 MG TABLET PO SCH (09:23)
[2019-04-23] MEDS: MEMANTINE HCL 5 MG TABLET PO SCH ×2 (09:24→16:39)
[2019-04-23] MEDS: DOCUSATE SODIUM 100 MG CAPSULE PO SCH ×2 (09:24→16:39)
[2019-04-23] MEDS: PANTOPRAZOLE 40 MG TABLET.DR PO SCH (09:27)
[2019-04-23] MEDS: PROSOURCE / PROSTAT (PYXIS) 30 ML UDC PO SCH (09:29)
[2019-04-23] MEDS: CLOTRIMAZOLE 1% 15 GM TUBE TP SCH ×2 (09:30→16:40)
[2019-04-23] MEDS: HYDROGEL DRESSING 90 GM TUBE TP SCH ×2 (09:30→21:47)
[2019-04-23] MEDS: Z GUARD REMEDY 2 OZ OINT TP SCH ×2 (09:30→21:48)
[2019-04-23] MEDS: IV NS 0.9% 1,000 ML IV PRN (11:11)
[2019-04-23 16:00] VITALS: BP 158/69
--- NOTE | 2019-04-23 19:50 | NUR ---
RN MS CLOSING NOTES RECEIVED IN BED SLEEPING. NO SOB OR ACUTE DISTRESS NOTED. BREATHING EVEN AND UNLABORED ON ROOM AIR, R FA 20G INTACT AND PATENT INFUSING NS @ 75ML/HR. SACRAL DRESSING CHANGED, BED IN LOWEST LOCKED POSITION, CALL LIGHT WITHIN REACH AT ALL TIMES, CARE ENDORSED TO SOFTWARE VALIDATION TECHNICIAN RN. .
[2019-04-23 19:55] VITALS: BP 137/62
[2019-04-23 20:00] VITALS: BP 137/62
[2019-04-23] MEDS: TAMSULOSIN 0.4 MG CAP.SR.24H PO SCH (22:18)
[2019-04-23] MEDS: SIMVASTATIN 10 MG TABLET PO SCH (22:19)
[2019-04-23] MEDS: LATANOPROST EYE DROP 0.005% 2.5 ML BOTTLE EACHEYE SCH (22:22)
[2019-04-24] VITALS: BP 125/60
[2019-04-24 04:00] VITALS: BP 146/88
[2019-04-24] MEDS: PIPERACILLIN /TAZOBACTAM 3.375 G in IV D5W 100 ML IV SCH ×2 (05:19→13:43)
[2019-04-24 08:00] VITALS: BP 110/62
[2019-04-24] MEDS: PANTOPRAZOLE 40 MG TABLET.DR PO SCH (08:20)
--- NOTE | 2019-04-24 08:49 | NUR ---
MS RN OPENING NOTES RECEIVED IN BED SLEEPING. A/O X 1, NO SOB OR ACUTE DISTRESS NOTED. BREATHING EVEN AND UNLABORED ON ROOM AIR, R FA 20G INTACT AND PATENT INFUSING NS @ 75ML/HR. SACRAL DRESSING CHANGED OVERNIGHT. BED IN LOWEST LOCKED POSITION, CALL LIGHT WITHIN REACH AT ALL TIMES, WILL CONTINUE TO MONITOR.
[2019-04-24] MEDS: ESCITALOPRAM OXALATE (10 MG) 10 MG TABLET PO SCH (09:11)
[2019-04-24] MEDS: DIVALPROEX SODIUM 250 MG TABLET.DR PO SCH (09:11)
[2019-04-24] MEDS: ASPIRIN 81 MG TAB.CHEW PO SCH (09:11)
[2019-04-24] MEDS: MULTIVIT W/MINERALS 1 TAB TABLET PO SCH (09:11)
[2019-04-24] MEDS: DOCUSATE SODIUM 100 MG CAPSULE PO SCH (09:12)
[2019-04-24] MEDS: MEMANTINE HCL 5 MG TABLET PO SCH (09:12)
[2019-04-24] MEDS: OLANZAPINE 2.5 MG TABLET PO SCH ×2 (09:12→13:43)
[2019-04-24] MEDS: HYDROGEL DRESSING 90 GM TUBE TP SCH (09:19)
[2019-04-24] MEDS: CLOTRIMAZOLE 1% 15 GM TUBE TP SCH (09:20)
[2019-04-24] MEDS: Z GUARD REMEDY 2 OZ OINT TP SCH (09:20)
[2019-04-24] MEDS: PROSOURCE / PROSTAT (PYXIS) 30 ML UDC PO SCH (09:20)
--- NOTE | 2019-04-24 19:35 | NUR ---
MS CARD BOXER NOTES PATIENT DISCHARGED PER MD VIA EMT GURNEY TRANSPORT TO [facility]. PATIENT A/O X 1, NO SOB OR ACUTE DISTRESS NOTED. BREATHING EVEN AND UNLABORED ON 2L 02 VIA NC. R FA 20G REMOVED. BELONGINGS LIST COMPLETED. NO MONITORS ON PATIENT. WOUND PHOTOS TAKEN. WOUND CARE COMPLETED. REPORT GIVEN TO TACHO GUILLERMO AT [facility]. ALL DISCHARGE PAPERWORK INCLUDING MEDICATIOJN LIST SENT WITH PATIENT.
== END 2019-04-24 17:50 | DRG 166 ==
LOC: ER 08:56 → TELE 10:58 → TELE-TD 11:20 → TELE1 04-20 12:54 → MEDSG1 04-22 10:19
PROVIDERS: ADMIT Nurse Practitioner Acute Care; ATTEND Nurse Practitioner Acute Care
PROC: 0JB70ZZ Excision of Back Subcutaneous Tissue and Fascia, Open Approach (ICD-10-PCS; principal; 2019-04-22)
PROC: 0JB90ZZ Excision of Buttock Subcutaneous Tissue and Fascia, Open Approach (ICD-10-PCS; 2019-04-22)
DX: J69.0 Pneumonitis due to inhalation of food and vomit (principal); L89.153 Pressure ulcer of sacral region, stage 3; L89.323 Pressure ulcer of left buttock, stage 3; J96.01 Acute respiratory failure with hypoxia; G93.41 Metabolic encephalopathy; E87.2 Acidosis; E44.1 Mild protein-calorie malnutrition; J98.11 Atelectasis; N40.0 Benign prostatic hyperplasia without lower urinary tract symptoms; Z86.73 Personal history of transient ischemic attack (TIA), and cerebral infarction without residual deficits; K21.9 Gastro-esophageal reflux disease without esophagitis; I10 Essential (primary) hypertension; F03.90 Unspecified dementia, unspecified severity, without behavioral disturbance, psychotic disturbance, mood disturbance, and anxiety; H40.9 Unspecified glaucoma; E78.5 Hyperlipidemia, unspecified; E87.6 Hypokalemia; Z79.899 Other long term (current) drug therapy; Z79.82 Long term (current) use of aspirin; Z66 Do not resuscitate; F29 Unspecified psychosis not due to a substance or known physiological condition; F41.9 Anxiety disorder, unspecified; F32.9 Major depressive disorder, single episode, unspecified; Z98.890 Other specified postprocedural states; K57.90 Diverticulosis of intestine, part unspecified, without perforation or abscess without bleeding; K58.9 Irritable bowel syndrome, unspecified; L30.4 Erythema intertrigo; L98.9 Disorder of the skin and subcutaneous tissue, unspecified; R13.10 Dysphagia, unspecified
CPT/HCPCS: 36415; 36600; 71045-TC; 80048-TC; 80061-TC; 80076-TC; 81000-TC; 82803-TC; 82962-TC; 83605-TC; 83735-TC; 84100-TC; 84443-TC; 84484-TC; 85025-TC; 85730-TC; 87040-TC; 87081-TC; 87086-TC; 92526; 92611-TC; A4349; A6248; A6402; G0378; J0696; J2270; J2543; J3490; J7030; J7060